=== PATIENT | male | born 1960 | race Caucasian/White ===

== ENCOUNTER → 2016-11-27 | Outpatient (CLI) | payer BC ==
--- NOTE | 2016-11-27 14:22 | RADIOLOGY REPORT (SQ) ---
EXAM DESCRIPTION: CT CHEST WITH; CT ABD/PELVIS WITH IV ORAL COMPLETED DATE/TIME: 11/27/2016 11:25 am REASON FOR STUDY: COLON CA C18.9 MALIGNANT NEOPLASM OF COLON, UNSPECIFIED COMPARISON: None. CONTRAST TYPE AND DOSE: contrast/concentration: Isovue 370.00 mg/ml; Total Contrast Delivered: 91.0 ml; Total Saline Delivered: 67.1 ml RENAL FUNCTION: Creatinine 1.0 TECHNIQUE: CT scan of the chest performed using helical scanning technique with dynamic intravenous contrast injection. Images reviewed with lung, soft tissue and bone windows. Reconstructed coronal a nd sagittal MPR images reviewed. All images stored on PACS. CT scan of the abdomen and pelvis performed with intravenous and with oral contrastusing helical scan alec technique with dynamic intravenous contrast injection. Images reviewed with lung, soft tissue a nd bone windows. Reconstructed coronal and sagittal MPR images reviewed. Delayed images for evaluat ion of the urinary system also acquired and evaluated. All images stored on PACS. All CT scanners at this facility use dose modulation, iterative reconstruction, and/or weight based d osing when appropriate to reduce radiation dose to as low as reasonably achievable (ALARA). [facility]: Dose Right [facility]: CareDose [facility]: Dose Right [facility]: Teradose 4D [facility]: Smart [employer] RADIATION DOSE: Up-to-date CT equipment and radiation dose reduction techniques were employed. CTDIv ol: 4.6 - 9.0 mGy. DLP: 989 mGy-cm. . LIMITATIONS: None. FINDINGS: CHEST: LUNGS AND PLEURA: No opacities, nodules, masses. No pneumothorax. No effusions. HILAR AND MEDIASTINAL STRUCTURES: No identified masses or abnormal nodes. HEART AND VASCULAR STRUCTURES: No aneurysm or dissection. No central pulmonary emboli. No pericardi al effusion. HARDWARE: None. THYROID AND OTHER SOFT TISSUES: No masses. No adenopathy. BONES: No significant finding. OTHER: No other significant finding. ABDOMEN AND PELVIS: LIVER: Normal size. No masses or dilated ducts. SPLEEN: Normal size. No focal lesions. PANCREAS: No masses. No significant calcifications. No adjacent inflammation or peripancreatic fluid collections. Pancreatic duct not dilated. GALLBLADDER: No identified stones by CT criteria. No inflammatory changes to suggest cholecystitis. ADRENAL GLANDS: No significant masses or asymmetry. RIGHT KIDNEY AND URETER: No solid masses. No significant calcification. No hydronephrosis or hydroure ter. LEFT KIDNEY AND URETER: No solid masses. No significant calcification. No hydronephrosis or hydrouret er. AORTA AND VESSELS: No aneurysm. No dissection. Renal arteries, SMA, celiac without stenosis. RETROPERITONEUM: No retroperitoneal adenopathy, hemorrhage or masses. BOWEL AND PERITONEAL CAVITY: Along the distal sigmoid colon, diffuse circumferential wall thickening and luminal narrowing is present highly suspicious for malignancy. This involves a 5 to 6 1 cm long segment of distal sigmoid colon best shown on sagittal image 39 and axial image 76. There is a 1.5 x 1.2 cm presacral lymph node on axial image 64. Remainder of the gastrointestinal tract is otherwise unremarkable. No free intraperitoneal air or fl uid. APPENDIX: Surgically absent ABDOMINAL WALL: No masses. No hernias. BONES: No significant or acute findings. PELVIS: Distal sigmoid colon mass with presacral 1.5 x 1.2 cm lymph node. No free pelvic fluid. Pro state, bladder unremarkable. No inguinal or iliac adenopathy. IMPRESSION: Large distal sigmoid colon mass associated presacral fat lymph node worrisome for colon cancer. No CT evidence of metastatic disease to the chest abdomen or pelvis TECHNICAL DOCUMENTATION: JOB ID: [id number] Quality ID # [id number]: Final reports with documentation of one or more dose reduction techniques (e.g., Au tomated exposure control, adjustment of the mA and/or kV according to patient size, use of iterative reconstruction technique) 2010 [employer]- All Rights Reserved
== END ==
LOC: RAD 09:49
PROVIDERS: ATTEND Surgery
DX: C18.9 Malignant neoplasm of colon, unspecified (principal)
CPT/HCPCS: 71260; 74177; 82565

== ENCOUNTER → 2016-12-04 | Outpatient (CLI) | payer BC ==
--- NOTE | 2016-12-04 10:00 | RADIOLOGY REPORT (SQ) ---
EXAM DESCRIPTION: MRI PELVIS COMBO COMPLETED DATE/TIME: 12/04/2016 REASON FOR STUDY: COLON CA (C18.9) C18.9 MALIGNANT NEOPLASM OF COLON, UNSPECIFIED COMPARISON: CT abdomen pelvis 11/27/2016 TECHNIQUE: Sagittal, axial oblique, and coronal oblique T2-weighted images of the pelvis without con trast centered on the rectum. Axial images of the pelvis. Additional axial coronal and sagittal postcontrast T1 weighted images through the pelvis. Patient was injected with 18 mL of ProHance gadolinium. Estimated GFR greater than 60 FINDINGS: BRIEF DESCRIPTION OF MASS: 5.5 cm long circumferential mass in the distal sigmoid colon/re ctum LOCATION OF TUMOR: Distal sigmoid colon/upper rectum DISTANCE FROM ANORECTAL JUNCTION TO LOWER POLE OF TUMOR: 6 cm. CIRCUMFERENTIAL LOCATION OF TUMOR: Distal sigmoid colon LENGTH OF TUMOR: 5.5 cm greatest craniocaudad length . INVOLVEMENT OF MUSCULARIS PROPIA: Yes. EXTENSION BEYOND MUSCULARIS PROPIA: Yes DISTANCE BETWEEN TUMOR AND MESORECTAL FASCIA: Less than 2 cm PATHOLOGIC LYMPH NODES: Yes. DESCRIPTION: Left internal iliac lymph node in the presacral space, 1.5 x 1.2 cm in size. Left internal iliac lymph nodes in the presacral space, 7 mm and 7.5 mm diameter axial T2 image 10. 4 mm lymph node in the presacral fat the left of midline axial T2 image 17 6 mm l ymph node in the perirectal fat axial T2 image 20. EXTRAMURAL/VASCULAR INVASION: Yes DESCRIPTION: Areas neovascularity along the posterior aspect of th e tumor thyroid INVASION OF PELVIC STRUCTURES: No DESCRIPTION: Not applicable. IMPRESSION: T STAGE: T3b extends 1-5mm beyond muscularis propria N STAGE: N1 1-3 pathologic lymph nodes RECOMMENDATION: Follow-up as per surgeon TECHNICAL DOCUMENTATION: JOB ID: [id number] [employer]- All Rights Reserved
== END ==
LOC: RAD 06:52
PROVIDERS: ATTEND Surgery
DX: C18.9 Malignant neoplasm of colon, unspecified (principal)
CPT/HCPCS: 72197; A9576

== ENCOUNTER → 2016-12-14 | Outpatient (CLI) | payer BC ==
[2016-12-14 09:28] LABS: ABSOLUTE EOSINOPHILS # (AUTO) 0.1 10^3/uL (0.0-0.6); ABSOLUTE LYMPHOCYTES (AUTO) 1.9 10^3/uL (0.5-4.7); ABSOLUTE MONOCYTES (AUTO) 0.6 10^3/uL (0.1-1.4); BASOPHILS % (AUTO) 0.6 % (0-2); EOSINOPHILS % (AUTO) 2.2 % (0-6); HEMATOCRIT 40.9 % (37.9-51.0); HEMOGLOBIN 13.2 g/dL (13.5-17.0); HGB HCT DIFFERENCE -1.3; LYMPHOCYTES % (AUTO) 28.5 % (13-45); MEAN CORPUSCULAR HGB CONC 32.1 g/dL (32.0-36.0); MEAN CORPUSCULAR VOLUME 97 fl (80-97); MONOCYTES % (AUTO) 8.3 % (3-13); RED BLOOD COUNT 4.24 10^6/uL (4.35-5.55); RED CELL DISTRIBUTION WIDTH 17.6 % (11.5-14.0); SEGMENTED NEUTROPHILS % (AUTO) 60.4 % (42-78); WHITE BLOOD COUNT 6.7 10^3/uL (4.0-10.5)
[2016-12-14 09:49] LABS: ALANINE AMINOTRANSFERASE 33 U/L (21-72); ALBUMIN 4.3 g/dL (3.5-5.0); ALKALINE PHOSPHATASE 129 U/L (38-126); ASPARTATE AMINO TRANSFERASE 16 U/L (17-59); BILIRUBIN,DIRECT 0.4 mg/dL (0.0-0.4); BILIRUBIN,TOTAL 0.6 mg/dL (0.2-1.3); TOTAL PROTEIN 7.5 g/dL (6.3-8.2)
[2016-12-14 10:20] LABS: CARCINOEMBRYONIC ANTIGEN 4.1 ng/mL (<3.0)
== END ==
LOC: LAB 09:12
PROVIDERS: ATTEND Radiology Radiation Oncology
DX: C21.8 Malignant neoplasm of overlapping sites of rectum, anus and anal canal (principal); C77.5 Secondary and unspecified malignant neoplasm of intrapelvic lymph nodes
CPT/HCPCS: 36415; 80076; 82378; 85025

== ENCOUNTER → 2016-12-17 | Outpatient (CLI) | payer BC ==
--- NOTE | 2016-12-18 11:27 | RADIOLOGY REPORT (SQ) ---
EXAM DESCRIPTION: PET CT SKULL/THIGH COMPLETED DATE/TIME: 12/17/2016 9:48 pm REASON FOR STUDY: RECTAL CANCER C20 MALIGNANT NEOPLASM OF RECTUM COMPARISON: MRI pelvis 12/04/2016 CT chest abdomen and pelvis 11/27/2016 RADIONUCLIDE AND DOSE: 12.5 mCi F18 FDG The route of agent administration: Intravenous FASTING BLOOD SUGAR: 115 mg/dl CONTRAST TYPE AND DOSE: No CT contrast given. TECHNIQUE: Blood glucose level was verified. Above dose of FDG was injected intravenously. 2-D seg mented attenuation correction images were obtained from the base of the skull to the midthighs. Nonc ontrast CT images were obtained for attenuation correction and fusion with emission images. CT image s were performed without oral or intravenous contrast and are not sensitive for parenchymal lesions. A series of overlapping emission PET images were obtained. Images reviewed and manipulated at [facility] work station by the radiologist. Images stored on PACS. LIMITATIONS: None. FINDINGS: HEAD AND NECK: No areas of abnormal metabolic activity in the soft tissues of the head and neck. CHEST: No areas of abnormal metabolic activity in the chest. ABDOMEN AND PELVIS: The patient has a dominant mass in the distal sigmoid/rectum with circumferential involvement, tumor measures 9.4 SUV. No hypermetabolic abdominopelvic or inguinal lymph nodes are identified. There is a subtle focus of increased metabolic activity in the posterior right lobe liver with SUV 4. 3. This is difficult to visualize on the CT exam and is over the bare area of liver, this may be pre sent on axial CT image 145, measuring about 1 cm in size. PROXIMAL LOWER EXTREMITIES: No areas of abnormal metabolic activity in the soft tissues of the lower extremities. BONES: No abnormal metabolic activity in the visualized skeleton. ADDITIONAL CT FINDINGS: Mild inflammatory change in the bilateral ethmoid and right maxillary sinuses . Coronary artery calcification, minimal. OTHER: Liver background activity 2.7 SUV, blood pool background activity 2.0 SUV IMPRESSION: Primary rectosigmoid hypermetabolic mass Punctate focus of increased activity posterior right lobe liver. This is over the bare area, with a very subtle 1 cm hypodensity on corresponding CT imaging which was not identified on the studies from November. This is worrisome for a metastatic focus, but would be very difficult to biopsy under CT guid meg TECHNICAL DOCUMENTATION: JOB ID: [id number]- All Rights Reserved
== END ==
LOC: RAD 19:31
PROVIDERS: ATTEND Internal Medicine
DX: C20 Malignant neoplasm of rectum (principal)
CPT/HCPCS: 78815; A9552

== ENCOUNTER 2016-12-26 07:25 | Day surgery (SDC) | payer BC ==
[~2016-12-26 07:25] MED LIST: ACETAMINOPHEN 100 ML IV ONE; BACITRACIN INJ 50,000 UNIT VIAL ONE; BUPIVACAINE HCL 0.25 % INJ/PF (2.5 MG/1 ML) 30 ML VIAL ONE; CEFAZOLIN 1 GM/D5W RTU 1 GM/50 ML RTUPB IV PRN; DEXTROSE 5%-NORMAL SALINE 1,000 ML IV PRN; FENTANYL CITRATE INJ/PF 100 MCG/2 ML AMPUL ONE; LIDOCAINE 0.5% INJ-PF (5 MG/ML) 50 ML SDV ONE; LIDOCAINE 2% INJ-PF (20 MG/ML) 10 ML AMPUL ONE; MIDAZOLAM 2 MG/2 ML INJ ONE; ONDANSETRON HCL INJ/PF 4 MG/2 ML SDV ONE; PROPOFOL INJ 200 MG/20 ML VIAL IV ONE
[2016-12-26 07:52] LABS: HEMATOCRIT 38.6 % (37.9-51.0); HEMOGLOBIN 12.9 g/dL (13.5-17.0); HGB HCT DIFFERENCE 0.1; MEAN CORPUSCULAR HEMOGLOBIN 32.3 pg (27.0-33.4); MEAN CORPUSCULAR HGB CONC 33.3 g/dL (32.0-36.0); MEAN CORPUSCULAR VOLUME 97 fl (80-97); RED BLOOD COUNT 3.99 10^6/uL (4.35-5.55); RED CELL DISTRIBUTION WIDTH 17.2 % (11.5-14.0); WHITE BLOOD COUNT 6.4 10^3/uL (4.0-10.5)
[2016-12-26 08:02] LABS: ANION GAP 11 (5-19); BLOOD UREA NITROGEN 15 mg/dL (7-20); CALCIUM 9.4 mg/dL (8.4-10.2); CARBON DIOXIDE 24 mmol/L (22-30); CHLORIDE 107 mmol/L (98-107); CREATININE RESULT 1.01 mg/dL (0.52-1.25); GLUCOSE 101 mg/dL (75-110); SODIUM 141.7 mmol/L (137-145)
[2016-12-26] MEDS ORDERED: DIPHENHYDRAMINE HCL 50 MG/ML VIAL IV PRN (08:21)
[2016-12-26] MEDS ORDERED: PROMETHAZINE HCL INJ 25 MG/1 ML VIAL IV PRN ×2 (08:21)
[2016-12-26] MEDS ORDERED: MEPERIDINE HCL/PF INJ 25 MG/1 ML DISP.SYRIN IV PRN (08:21)
[2016-12-26] MEDS ORDERED: FENTANYL CITRATE INJ/PF 100 MCG/2 ML AMPUL IV PRN ×3 (08:21)
[2016-12-26] MEDS ORDERED: ONDANSETRON HCL INJ/PF 4 MG/2 ML SDV IV PRN (08:21)
--- NOTE | 2016-12-26 08:33 | HISTORY AND PHYSICAL E ---
History and Physical NAME: DAMASO HICKS : 1960 AGE: 56Y ADMITTED: 12/26/2016 ROOM: ADMITTING DIAGNOSIS: COLON CANCER. HISTORY OF THE PRESENTING COMPLAINT: The patient has been treated for colon cancer. He requires chemotherapy and has submitted for insertion of a Port-A-Cath. PAST MEDICAL HISTORY: Of: 1. Colon cancer. ALLERGIES: To CODEINE noted. FAMILY HISTORY: Mother and father in good health until the father's at age 77. SOCIAL HISTORY: The patient is a former smoker. Drinks occasional beer. MEDICATIONS: Per medication reconciliation sheet. PHYSICAL EXAMINATION: GENERAL: The patient is a pleasant, 56-year-old male, alert and oriented in judgment, and memory and insight appear normal. EYES: Mucous membranes are pink and moist, sclerae anicteric. OROPHARYNX: Normal. Dentition intact. RESPIRATION: Respiratory effort normal bilaterally. CARDIAC: Heart sounds are normal. UPPER EXTREMITIES: Show normal range of movement and pulses. PLAN: Is to insert a Port-A-Cath. The procedure, its risks, benefits, expected outcome and alternatives were discussed with the patient. He is agreeable and wishes to proceed. DICTATING PHYSICIAN: VIOLET COY M.D. [id number] PHY#: [id number] ID: [id number] JOB#: [id number] ACCT: [id number] cc:VIOLET COY M.D. > MTDD
--- NOTE | 2016-12-26 09:03 | PDOC DISCHARGE SUMMARY ---
Discharge Summary (SDC) - Discharge Final Diagnosis: Colon cancer. Date of Surgery: 12/26/16 Discharge Date: 12/26/16 Condition: Good Treatment or Instructions: Discharge home [after recovery per ASU criteria]. Diet ,as tolerated, when fully awake advance as tolerated. Activities within moderation encouraged. Follow up in my office by appointment in about [1 week]. Call for appointment. Leave wounds [covered], [keep clean and dry, until office visit in 1 week]. Hold of on school/work [until evaluation in office]. Medications per med rec May shower [in 48 hrs], [try to keep operated area as dry as possible]. Discharge Diet: As Tolerated Respiratory Treatments at Home: Deep Breathing/Coughing Discharge Activity: Activity As Tolerated Report the Following to Your Physician Immediately: Shortness of Breath, Unusual Bleeding
--- NOTE | 2016-12-26 09:07 | Operative Report ---
Operative Report DATE OF SURGERY: 12/26/16 PREOPERATIVE DIAGNOSIS: Colon cancer. POSTOPERATIVE DIAGNOSIS: Colon cancer. Post Port-A-Cath placement. OPERATION: 1. Ultrasound evaluation of the right internal jugular vein. 2. Placement of Port-A-Cath via real-time access in the right internal jugular vein. 3. Angiogram and interpretation. SURGEON: VIOLET COHN MEDICAL RECEPTIONIST ASSISTANT: Luann Renee ANESTHESIA: LMAC TISSUE REMOVED OR ALTERED: Not applicable. COMPLICATIONS: None ESTIMATED BLOOD LOSS: 2 mL. INTRAOPERATIVE FINDINGS: Of several branches of the internal jugular vein above the carotid artery. One was accessed successfully in support of the Port-A- Cath. Easy egress of blood and ingress of heparinized solution through the port. Angiogram demonstrated smooth flow of contrast through the catheter and the right atrium. PROCEDURE: After obtaining informed consent, the patient was taken to the [operating room] and positioned supine. The [right] neck and chest were prepared with chlorhexidine and draped out with sterile linen. After the " universal timeout ", in which it was verified that the patient continued to receive antibiotic, the procedure commenced. A steriley sheathed ultrasound probe was used to evaluate the [right] internal jugular vein. Local anesthesia was infiltrated adjacent to the probe. Access into the [right] internal jugular vein was obtained using a micropuncture needle, followed by micropuncture wire and then a micropuncture catheter. This was followed by introduction of a 0.035 guidewire the tip of which was placed down into the inferior vena cava . The port sites was marked , locally anesthetized and incision made. Dissection now proceeded to the deep subcutaneous subcutaneous tissues so that a pocket for the port was made. Meticulous hemostasis was secured and the catheter was tunneled between the 2 incisions. Proximally, the catheter was now positioned using a peel-away sheath. Distally the catheter was tailored to an appropriate length and then mated to the port using the contained fixating device. The port was now placed in the pocket and the catheter optimally positioned. The port was accessed with a Eugene needle and an angiogram done under digital subtraction. The findings as dictated. With adequate and satisfactory positioning, both lumens of the chamber were irrigated with heparinized solution. The wounds were now closed using interrupted 3-0 PDS to the subcutaneous tissues and a continuous subcuticular suture of 4-0 Monocryl to the skin. These are reinforced with Steri-Strips over benzoin and then dressings applied. Time: 0.8 minute. Dose: 5.73 m Gy Contrast: 8 mls. Isovue 300. Copies of the dictated operative report for Dr. Violet Dailey MD.
[2016-12-26 10:42] VITALS: BP 144/77
--- NOTE | 2016-12-26 12:35 | RADIOLOGY REPORT (SQ) ---
EXAM DESCRIPTION: FLUORO/CV PLACEMENT COMPLETED DATE/TIME: 12/26/2016 10:33 am REASON FOR STUDY: PORTACATH RT SIDE ASSISTED WITH FLUORO IN OR C20 MALIGNANT NEOPLASM OF RECTUM COMPARISON: None. FLUOROSCOPY TIME: 0.8 minutes. 4 images saved to PACS. TECHNIQUE: Intra-operative images acquired during surgical procedure to evaluate progress. NUMBER OF IMAGES: 4 images. LIMITATIONS: None. FINDINGS: Images of the chest acquired during catheter placement. IMPRESSION: IMAGE(S) OBTAINED DURING PROCEDURE. COMMENT: Quality ID [id number]: Final reports for procedures using fluoroscopy that document radiation exp osure indices, or exposure time and number of fluorographic images (if radiation exposure indices are not available) Please consult full operative report of the attending physician for description of the procedure. TECHNICAL DOCUMENTATION: JOB ID: [id number] [employer]- All Rights Reserved
== END 2016-12-26 10:40 | disposition home or self-care (01) ==
LOC: OROUT 07:25
PROVIDERS: ATTEND Surgery
PROC: 05HM33Z Insertion of Infusion Device into Right Internal Jugular Vein, Percutaneous Approach (ICD-10-PCS; principal; 2016-12-26 07:45)
DX: C20 Malignant neoplasm of rectum (principal); Z87.891 Personal history of nicotine dependence; Z88.5 Allergy status to narcotic agent
CPT/HCPCS: 36561; 36415; 85027; 80048; 77001; C1752; C1788; Q9967; J2250; J3490 ×3; J0690; J3010; J2405; J2704; J1642; J0131; 532

== ENCOUNTER → 2017-01-03 | Outpatient (CLI) | payer BC ==
[2017-01-03 09:23] LABS: BLOOD UREA NITROGEN 15 mg/dL (7-20); CREATININE RESULT 0.88 mg/dL (0.52-1.25)
== END ==
LOC: LAB 08:49
PROVIDERS: ATTEND Radiology Radiation Oncology
DX: C21.8 Malignant neoplasm of overlapping sites of rectum, anus and anal canal (principal); C77.5 Secondary and unspecified malignant neoplasm of intrapelvic lymph nodes
CPT/HCPCS: 36415; 82565; 84520

== ENCOUNTER → 2017-03-08 | Outpatient (CLI) | payer BC ==
--- NOTE | 2017-03-08 16:29 | RADIOLOGY REPORT (SQ) ---
EXAM DESCRIPTION: CT CHEST WITH; CT ABD/PELVIS WITH IV ORAL COMPLETED DATE/TIME: 03/08/2017 1:32 pm REASON FOR STUDY: RECTAL CA C20 MALIGNANT NEOPLASM OF RECTUM COMPARISON: None. CONTRAST TYPE AND DOSE: contrast/concentration: Isovue 370.00 mg/ml; Total Contrast Delivered: 94.0 ml; Total Saline Delivered: 38.2 ml RENAL FUNCTION: Creatinine 1.0 TECHNIQUE: CT scan of the chest performed using helical scanning technique with dynamic intravenous contrast injection. Images reviewed with lung, soft tissue and bone windows. Reconstructed coronal a nd sagittal MPR images reviewed. All images stored on PACS. CT scan of the abdomen and pelvis performed with intravenous and with oral contrastusing helical scan alec technique with dynamic intravenous contrast injection. Images reviewed with lung, soft tissue a nd bone windows. Reconstructed coronal and sagittal MPR images reviewed. Delayed images for evaluat ion of the urinary system also acquired and evaluated. All images stored on PACS. All CT scanners at this facility use dose modulation, iterative reconstruction, and/or weight based d osing when appropriate to reduce radiation dose to as low as reasonably achievable (ALARA). [facility]: Dose Right [facility]: CareDose [facility]: Dose Right [facility]: Teradose 4D [facility]: [employer] RADIATION DOSE: Up-to-date CT equipment and radiation dose reduction techniques were employed. CTDIv ol: 6.3 - 8.2 mGy. DLP: 949 mGy-cm. . LIMITATIONS: None. FINDINGS: CHEST: LUNGS AND PLEURA: No opacities, nodules, masses. No pneumothorax. No effusions. HILAR AND MEDIASTINAL STRUCTURES: No identified masses or abnormal nodes. HEART AND VASCULAR STRUCTURES: No aneurysm or dissection. No central pulmonary emboli. No pericardi al effusion. HARDWARE: Right permanent central line tip superior vena cava THYROID AND OTHER SOFT TISSUES: No masses. No adenopathy. BONES: No significant finding. OTHER: No other significant finding. ABDOMEN AND PELVIS: LIVER: Normal size. No masses. No dilated ducts. Tiny lesion posterior right lobe liver identified on PET-CT 12/17/2016 is no longer seen. SPLEEN: Normal size. No focal lesions. PANCREAS: No masses. No significant calcifications. No adjacent inflammation or peripancreatic fluid collections. Pancreatic duct not dilated. GALLBLADDER: No identified stones by CT criteria. No inflammatory changes to suggest cholecystitis. ADRENAL GLANDS: No significant masses or asymmetry. RIGHT KIDNEY AND URETER: No solid masses. No significant calcification. No hydronephrosis or hydroure ter. LEFT KIDNEY AND URETER: No solid masses. No significant calcification. No hydronephrosis or hydrouret er. AORTA AND VESSELS: No aneurysm. No dissection. Renal arteries, SMA, celiac without stenosis. RETROPERITONEUM: An enlarged left internal iliac lymph node is present on axial image 117, 1.3 x 0.9 cm in size (was 1.5 x 1.[address] 11/27/2016). BOWEL AND PERITONEAL CAVITY: There is residual circumferential wall thickening in the distal sigmoid/ upper rectum on axial images 122-127 and sagittal images 74 through 76. This is decreased compared to prior exams. Patient drank oral contrast. No bowel obstruction. No free intraperitoneal air. No free fluid. APPENDIX: Not identified. No right lower quadrant inflammatory change ABDOMINAL WALL: No masses. No hernias. BONES: No significant or acute findings. PELVIS: Rectal mass and left internal iliac lymph node as above. Otherwise unremarkable CT the pelvi s IMPRESSION: No CT evidence of metastatic disease to the chest Decrease in size of left internal iliac lymph node and primary distal sigmoid/ rectal mass. Tiny posterior right lobe liver metastatic lesions seen on PET-CT 12/17/2016 is not identified on ean coker's study TECHNICAL DOCUMENTATION: JOB ID: [id number] Quality ID # [id number]: Final reports with documentation of one or more dose reduction techniques (e.g., Au tomated exposure control, adjustment of the mA and/or kV according to patient size, use of iterative reconstruction technique) 2010 [employer]- All Rights Reserved
== END ==
LOC: RAD 12:52
PROVIDERS: ATTEND Internal Medicine
DX: C20 Malignant neoplasm of rectum (principal)
CPT/HCPCS: 71260; 74177

== ENCOUNTER 2017-04-03 09:17 | Inpatient (IN) | payer BC ==
[2017-03-27 10:33] LABS: HEMOGLOBIN 11.3 g/dL (13.5-17.0); HGB HCT DIFFERENCE -0.1; MEAN CORPUSCULAR HEMOGLOBIN 33.4 pg (27.0-33.4); MEAN CORPUSCULAR HGB CONC 33.3 g/dL (32.0-36.0); MEAN CORPUSCULAR VOLUME 100 fl (80-97); RED BLOOD COUNT 3.39 10^6/uL (4.35-5.55); RED CELL DISTRIBUTION WIDTH 18.9 % (11.5-14.0); WHITE BLOOD COUNT 4.7 10^3/uL (4.0-10.5)
[2017-03-27 10:53] LABS: ALANINE AMINOTRANSFERASE 31 U/L (21-72); ALBUMIN 3.6 g/dL (3.5-5.0); ALKALINE PHOSPHATASE 101 U/L (38-126); ANION GAP 10 (5-19); ASPARTATE AMINO TRANSFERASE 14 U/L (17-59); BILIRUBIN,DIRECT 0.3 mg/dL (0.0-0.4); BILIRUBIN,TOTAL 0.3 mg/dL (0.2-1.3); BLOOD UREA NITROGEN 15 mg/dL (7-20); CALCIUM 9.2 mg/dL (8.4-10.2); CARBON DIOXIDE 25 mmol/L (22-30); CHLORIDE 109 mmol/L (98-107); CREATININE RESULT 0.97 mg/dL (0.52-1.25); GLUCOSE 107 mg/dL (75-110); POTASSIUM 4.3 mmol/L (3.6-5.0); SODIUM 143.8 mmol/L (137-145); TOTAL PROTEIN 6.4 g/dL (6.3-8.2)
[2017-03-27 11:24] LABS: CARCINOEMBRYONIC ANTIGEN 2.7 ng/mL (<3.0)
--- NOTE | 2017-03-27 16:30 | EKG REPORT ---
SEVERITY:- NORMAL ECG - SINUS RHYTHM : Confirmed by: Navjot Fisher 27-Mar-2017 16:29:46
[~2017-04-03 09:17] MED LIST changes: -ACETAMINOPHEN 100 ML IV ONE; +ACETAMINOPHEN 325 MG TABLET PO PRN; -BACITRACIN INJ 50,000 UNIT VIAL ONE; -BUPIVACAINE HCL 0.25 % INJ/PF (2.5 MG/1 ML) 30 ML VIAL ONE; -CEFAZOLIN 1 GM/D5W RTU 1 GM/50 ML RTUPB IV PRN; -DEXTROSE 5%-NORMAL SALINE 1,000 ML IV PRN; +ERTAPENEM SODIUM 1 GM in NORMAL SALINE 50 ML IV PRN; -FENTANYL CITRATE INJ/PF 100 MCG/2 ML AMPUL ONE; +GLYCOPYRROLATE INJ 0.4 MG/2 ML VIAL ONE; +LACTATED RINGERS 1000 ML IV PRN; -LIDOCAINE 0.5% INJ-PF (5 MG/ML) 50 ML SDV ONE; +LIDOCAINE 0.5% INJ-PF (5 MG/ML) 50 ML SDV SUBCUT PRN; -LIDOCAINE 2% INJ-PF (20 MG/ML) 10 ML AMPUL ONE; -MIDAZOLAM 2 MG/2 ML INJ ONE; +NEOSTIGMINE METHYLSULFATE 10 MG/10 ML VIAL ONE; -PROPOFOL INJ 200 MG/20 ML VIAL IV ONE; +ROCURONIUM BROMIDE INJ 50 MG/5 ML VIAL IV ONE; +SUCCINYLCHOLINE CHLORIDE INJ 200 MG/10 ML VIAL ONE
[2017-04-03] MEDS ORDERED: GLUCAGON,HUMAN RECOMB 1 MG INJ ONE (11:03)
[2017-04-03] MEDS ORDERED: BUPIVACAINE HCL 0.25 % INJ/PF (2.5 MG/1 ML) 30 ML VIAL ONE (11:03)
[2017-04-03] MEDS ORDERED: FENTANYL CITRATE INJ/PF 250 MCG/5 ML AMPULE ONE (12:11)
[2017-04-03] MEDS ORDERED: EPHEDRINE SULFATE INJ 50 MG/1 ML AMPULE ONE (12:11)
[2017-04-03] MEDS ORDERED: MIDAZOLAM 2 MG/2 ML INJ ONE (12:11)
[2017-04-03] MEDS ORDERED: PROPOFOL INJ 200 MG/20 ML VIAL IV ONE (12:11)
[2017-04-03] MEDS ORDERED: HYDROMORPHONE HCL INJ/PF 2 MG/ML AMPULE ONE (12:12)
[2017-04-03] MEDS ORDERED: ACETAMINOPHEN 100 ML IV ONE (12:12)
[2017-04-03] MEDS ORDERED: MORPHINE SULFATE 10 MG/ML INJ IV PRN (15:28)
[2017-04-03] MEDS ORDERED: DIPHENHYDRAMINE HCL 50 MG/ML VIAL IV PRN (15:28)
[2017-04-03] MEDS ORDERED: FENTANYL CITRATE INJ/PF 100 MCG/2 ML AMPUL IV PRN ×3 (15:28)
[2017-04-03] MEDS ORDERED: PROMETHAZINE HCL INJ 25 MG/1 ML VIAL IV PRN ×2 (15:28)
[2017-04-03] MEDS ORDERED: MEPERIDINE HCL/PF INJ 25 MG/1 ML DISP.SYRIN IV PRN (15:28)
[2017-04-03] MEDS ORDERED: GLUCAGON,HUMAN RECOMB 1 MG INJ SUBCUT PRN (16:31)
[2017-04-03] MEDS ORDERED: DEXTROSE 50%-WATER 25 GM/50 ML DISP.SYRIN IV PRN ×2 (16:31)
[2017-04-03] MEDS ORDERED: DEXTROSE 40% GEL 15 GM TUBE PO PRN ×2 (16:31)
--- NOTE | 2017-04-03 16:31 | Operative Report ---
Operative Report DATE OF SURGERY: 04/03/17 PREOPERATIVE DIAGNOSIS: Rectal cancer POSTOPERATIVE DIAGNOSIS: Rectal cancer OPERATION: Low anterior resection with mobilization of the splenic flexure SURGEON: JOY BLANCO ANESTHESIA: GA TISSUE REMOVED OR ALTERED: Rectosigmoid COMPLICATIONS: None ESTIMATED BLOOD LOSS: 200 cc INTRAOPERATIVE FINDINGS: Upper rectal mass below the level of the peritoneal reflection. palpable lesion at the posterior surface of segment 7 of the liver measuring about 2-3 cm in size unable to visualize the lesion however. PROCEDURE: Informed consent was obtained. Patient was brought to the operating room placed on the operating table in the supine position. After satisfactory induction of general anesthesia patient was placed in a low lithotomy position and his abdomen and perineum were prepped and draped in usual sterile fashion. A midline abdominal incision was made dissection was carried down and the peritoneal cavity was entered without difficulty. A wound protractor was used during the case as well as a Bookwalter retractor. Exploratory laparotomy was performed first. The anterior surface of the abdominal wall felt smooth with no nodules. The omentum appeared normal. The small bowel appeared normal. The right colon and transverse colon descending colon appeared normal. At the upper rectum just below the level of the peritoneal reflection there was a palpable mass. The mesentery appeared somewhat thickened in this region. The stomach felt normal. The gallbladder appeared normal. Liver was palpated there were no palpable masses anteriorly however at the posterior surface of segment 7 of the liver there was a palpable mass measuring about 2-3 cm in size. I could not visualize this lesion however. The sigmoid colon was mobilized the AINSLEY was identified clamped divided and tied. On the left side I went intentionally wide along the peritoneal reflection overlying this region of the left internal iliac. The ureters on both sides were identified and protected during the dissection. The retroperitoneal structures were skeletonized on the left staying in an avascular plane as the dissection proceeded posteriorly in the pelvis. The sigmoid colon was divided at its junction of the descending colon using a ASHLEY stapling device. Dissection was then performed laterally and finally anteriorly performing a near total meso rectal excision. The rectum was divided at the lower rectal level using a contour stapling device. The specimen was taken to pathology and it was opened revealing a 6-7 cm margin distally. The pelvis was examined and palpated I could not feel any palpable nodes especially along the left internal iliac region. node in the mesentery of the rectosigmoid that overlaid the left internal iliac region may have come out with the specimen. The left colon was mobilized and the splenic flexure was completely mobilized. Despite complete mobilization of the splenic flexure the descending colon end did not reach down to the rectal stump without tension. The inferior mesenteric vein was taken and this allowed the descending colon end to reach down to the rectal stump without any tension. The marginal vessel supplied by the middle colic artery had excellent pulsations. Triphasic Doppler signals were heard in the mesentery adjacent of the descending colon end. The descending colon end appeared pink with no evidence of ischemia. Using a pursestring device, head of size EEA stapling device was then attached to the descending colon end. The cut edge of the descending colon end had oozing of blood. A end-to-end anastomosis was then performed between the descending colon and the rectum. Both of the donuts were intact. Proctoscopy was performed which demonstrated the anastomosis to be 5 cm from the anal verge. Anastomosis appeared intact and it was airtight. A Marcus-Daley drain was placed in the patient's pelvis and brought out through separate stab incision in the patient's left lower abdomen and sutured in place. Hemostasis appeared excellent. Sponge needle and instrument counts were all correct. Omentum was draped over the small bowel and the fascia was closed with running PDS suture. Staple closure of the skin was performed. Marcaine was injected at the operative incision. Patient tolerated procedure well with no apparent complications and was taken to the recovery area in stable condition.
[2017-04-03] MEDS: FENTANYL CITRATE INJ/PF 100 MCG/2 ML AMPUL ONE ×2 (16:38→16:43)
[2017-04-03] MEDS ORDERED: PHARMACY COMMUNICATION ORDER MC NR (16:45)
[2017-04-03] MEDS: MORPHINE SULFATE 10 MG/ML INJ IV PRN ×2 (18:12→22:34)
--- NOTE | 2017-04-03 19:07 | PDOC PROGRESS REPORT ---
Subjective Progress Note for:: 04/03/17 Subjective:: Pain at the incision otherwise feels okay Physical Exam Vital Signs: Temp Pulse Resp BP Pulse Ox 95.1 F L 78 18 127/78 H 99 04/03/17 18:42 04/03/17 18:42 04/03/17 18:42 04/03/17 18:42 04/03/17 18:42 Intake & Output 04/02/17 04/03/17 04/04/17 06:59 06:59 06:59 Intake Total 6260 Output Total 1820 Balance 4440 Weight 77.56 kg General appearance: PRESENT: no acute distress, cooperative Respiratory exam: PRESENT: clear to auscultation andria Cardiovascular exam: PRESENT: RRR GI/Abdominal exam: PRESENT: other - Soft, nondistended, appropriate tenderness. Marcus-Daley drain output is blood-tinged. Extremities exam: PRESENT: other - No swelling Skin exam: PRESENT: warm Results Laboratory Results: 03/27/17 08:57 03/27/17 08:57 04/03/17 11:35 Blood Type O NEGATIVE Antibody Screen NEGATIVE Assessment & Plan - Diagnosis (1) Rectal cancer Is this a current diagnosis for this admission?: Yes Plan: Status post low anterior resection. Patient looks good. Will give a dose of Toradol for additional pain control tonight. Will ambulate the patient tomorrow.
[2017-04-03] MEDS ORDERED: KETOROLAC TROMETHAMINE INJ/PF 30 MG/1 ML SDV IV ONE (20:00)
[2017-04-03] MEDS: FAMOTIDINE INJ/PF 20 MG/2 ML SDV IV SCH (21:24)
[2017-04-04] MEDS: MORPHINE SULFATE 10 MG/ML INJ IV PRN ×5 (03:56→21:47)
[2017-04-04 07:01] LABS: HEMATOCRIT 30.7 % (37.9-51.0); HEMOGLOBIN 10.3 g/dL (13.5-17.0); HGB HCT DIFFERENCE 0.2; MEAN CORPUSCULAR HEMOGLOBIN 34.1 pg (27.0-33.4); MEAN CORPUSCULAR HGB CONC 33.7 g/dL (32.0-36.0); MEAN CORPUSCULAR VOLUME 101 fl (80-97); RED BLOOD COUNT 3.03 10^6/uL (4.35-5.55); RED CELL DISTRIBUTION WIDTH 19.2 % (11.5-14.0); WHITE BLOOD COUNT 5.2 10^3/uL (4.0-10.5)
[2017-04-04 07:19] LABS: ANION GAP 7 (5-19); BLOOD UREA NITROGEN 12 mg/dL (7-20); CALCIUM 8.6 mg/dL (8.4-10.2); CARBON DIOXIDE 23 mmol/L (22-30); CHLORIDE 114 mmol/L (98-107); CREATININE RESULT 0.77 mg/dL (0.52-1.25); GLUCOSE 92 mg/dL (75-110); POTASSIUM 4.7 mmol/L (3.6-5.0); SODIUM 143.5 mmol/L (137-145)
[2017-04-04] MEDS: ENOXAPARIN SODIUM INJ 40 MG/0.4 ML DISP.SYRIN SUBCUT SCH (09:11)
[2017-04-04] MEDS: FAMOTIDINE INJ/PF 20 MG/2 ML SDV IV SCH ×2 (09:12→21:32)
[2017-04-04] MEDS: NORMAL SALINE 1000 ML 1,000 ML IV PRN ×2 (13:23→23:46)
--- NOTE | 2017-04-04 16:00 | PDOC PROGRESS REPORT ---
Subjective Progress Note for:: 04/04/17 Subjective:: feels well, no complaints Physical Exam Vital Signs: Temp Pulse Resp BP Pulse Ox 97.6 F 77 17 123/80 100 04/04/17 11:38 04/04/17 11:38 04/04/17 11:38 04/04/17 11:38 04/04/17 11:38 Intake & Output 04/03/17 04/04/17 04/05/17 06:59 06:59 06:59 Intake Total 7460 Output Total 2370 Balance 5090 Weight 81.6 kg General appearance: PRESENT: no acute distress, cooperative Respiratory exam: PRESENT: clear to auscultation andria Cardiovascular exam: PRESENT: RRR GI/Abdominal exam: PRESENT: other - soft, nd, mild tenderness Musculoskeletal exam: PRESENT: other - no swelling Results Laboratory Results: 04/04/17 06:28 04/04/17 06:28 04/04/17 04/04/17 06:28 06:28 WBC 5.2 RBC 3.03 L Hgb 10.3 L Hct 30.7 L MCV 101 H MCH 34.1 H MCHC 33.7 RDW 19.2 H Plt Count 185 Sodium 143.5 Potassium 4.7 Chloride 114 H Carbon Dioxide 23 Anion Gap 7 BUN 12 Creatinine 0.77 Est GFR ( Amer) > 60 Est GFR (Non-Af Amer) > 60 Glucose 92 Calcium 8.6 Assessment & Plan - Diagnosis (1) Rectal cancer Is this a current diagnosis for this admission?: Yes Plan: Status post low anterior resection. Patient looks good. NG d/c 'ed due to minimal output. pt ambulating. d/c barrios tomorrow.
[2017-04-05] MEDS: MORPHINE SULFATE 10 MG/ML INJ IV PRN ×4 (03:12→21:52)
--- NOTE | 2017-04-05 09:31 | PDOC PROGRESS REPORT ---
Subjective Progress Note for:: 04/05/17 Subjective:: Feels well. Passing gas. Hungry. Physical Exam Vital Signs: Temp Pulse Resp BP Pulse Ox 97.4 F 78 18 150/85 H 100 04/05/17 07:47 04/05/17 07:47 04/05/17 07:47 04/05/17 07:47 04/05/17 07:47 Intake & Output 04/04/17 04/05/17 04/06/17 06:59 06:59 06:59 Intake Total 7460 2432 Output Total 2370 1858 Balance 5090 574 Weight 81.6 kg 82.9 kg General appearance: PRESENT: no acute distress, cooperative Respiratory exam: PRESENT: clear to auscultation andria Cardiovascular exam: PRESENT: RRR GI/Abdominal exam: PRESENT: other - Soft, nondistended, minimal tenderness. Wound clean dry and intact. Drain output is serosanguineous. Extremities exam: PRESENT: other - No swelling. Results Laboratory Results: 04/04/17 06:28 04/04/17 06:28 Assessment & Plan - Diagnosis (1) Rectal cancer Is this a current diagnosis for this admission?: Yes Plan: Doing very well. Will start clear liquids. DC Longo catheter.
[2017-04-05] MEDS ORDERED: NORMAL SALINE 1000 ML 1,000 ML IV PRN (09:32)
[2017-04-05] MEDS: ENOXAPARIN SODIUM INJ 40 MG/0.4 ML DISP.SYRIN SUBCUT SCH (09:36)
[2017-04-05] MEDS: FAMOTIDINE INJ/PF 20 MG/2 ML SDV IV SCH ×2 (09:36→21:52)
[2017-04-06] MEDS: MORPHINE SULFATE 10 MG/ML INJ IV PRN ×3 (04:51→21:10)
--- NOTE | 2017-04-06 07:49 | PDOC PROGRESS REPORT ---
Subjective Progress Note for:: 04/06/17 Subjective:: Feels well. tolerating clears. no bm. stopped passing gas but no distension and no nausea Physical Exam Vital Signs: Temp Pulse Resp BP Pulse Ox 97.4 F 81 17 139/84 H 99 04/06/17 00:03 04/06/17 00:03 04/06/17 00:03 04/06/17 00:03 04/06/17 00:03 Intake & Output 04/05/17 04/06/17 04/07/17 06:59 06:59 06:59 Intake Total 2432 2435 Output Total 1858 610 Balance 574 1825 Weight 82.9 kg 82.9 kg General appearance: PRESENT: no acute distress, cooperative Respiratory exam: PRESENT: clear to auscultation andria Cardiovascular exam: PRESENT: RRR GI/Abdominal exam: PRESENT: other - soft, nondistended, tender at midline only. active bowel sounds. drain slight blood tinged. Extremities exam: PRESENT: other - no swelling Neurological exam: PRESENT: alert, awake Psychiatric exam: PRESENT: appropriate affect Skin exam: PRESENT: warm Results Laboratory Results: 04/04/17 06:28 04/04/17 06:28 Assessment & Plan - Diagnosis (1) Rectal cancer Is this a current diagnosis for this admission?: Yes Plan: Doing very well. will await better bowel function prior to advancing diet.
[2017-04-06] MEDS: ENOXAPARIN SODIUM INJ 40 MG/0.4 ML DISP.SYRIN SUBCUT SCH (09:37)
[2017-04-06] MEDS: FAMOTIDINE INJ/PF 20 MG/2 ML SDV IV SCH ×2 (09:37→21:10)
[2017-04-07] MEDS: MORPHINE SULFATE 10 MG/ML INJ IV PRN ×3 (02:07→23:53)
[2017-04-07] MEDS ORDERED: LOSARTAN POTASSIUM 50 MG TABLET PO ONE (04:00)
[2017-04-07] MEDS ORDERED: HYDRALAZINE HCL INJ/PF 20 MG/1 ML SDV IV ONE (04:00)
[2017-04-07] MEDS ORDERED: MORPHINE SULFATE 10 MG/ML INJ IV ONE (04:02)
[2017-04-07] MEDS ORDERED: LORAZEPAM INJ 2 MG/1 ML VIAL IV ONE (04:03)
[2017-04-07] MEDS ORDERED: LORAZEPAM INJ 2 MG/1 ML VIAL IV PRN (04:58)
--- NOTE | 2017-04-07 05:12 | PDOC CONSULTATION ---
Consultation Consult Date: 04/07/17 Attending physician:: JOY BLANCO Consult reason:: Htn History of Present Illness Admission Date/PCP: 04/03/17 10:39 BELLA History of Present Illness: DAMASO HICKS is a 57 year old male with a PMH significant for recent diagnosis of metastatic adenocarcinoma of the colon who presented for a resection of his colonic mass. Patient reports that he has no prior history of hypertension. He does report that he is having some left upper quadrant what he feels is gas pain. He reports significant nausea and stomach cramps. He reports he has been having difficulty tolerating even a mild clear liquid diet. He has been ambulating. He is passing very little flatus. Nursing reports that his ASLUD drain has put out over 300 this evening. Patient denies any chest pain, shortness of breath, headache, numbness, tingling, or other TIA or CVA type symptoms. Hospital service is consulted for management of hypertension. Past Medical History Cardiac Medical History: Denies: Coronary Artery Disease, Myocardial Infarction, Hypertension Pulmonary Medical History: Denies: Asthma, Bronchitis, Chronic Obstructive Pulmonary Disease (COPD), Pneumonia Neurological Medical History: Denies: Seizures Malignancy Medical History: Reports: Colorectal Cancer GI Medical History: Denies: Crohn's Disease, Gastroesophageal Reflux Disease, Hiatal Hernia Musculoskeltal Medical History: Denies: Arthritis Hematology: Denies: Anemia Past Surgical History Past Surgical History: Reports: Appendectomy - 1970, Vascular Surgery - Port placement Denies: Cholecystectomy, Colostomy, Coronary Artery Bypass Graft, Gastric Bypass Surgery, Herniorrhaphy, Pacemaker, Tonsillectomy Social History Smoking Status: Former Smoker Frequency of Alcohol Use: Heavy Amount of Alcoholic Beverages Per Day: She reports drinking 3-4 beers several times a week Hx Recreational Drug Use: No Hx Prescription Drug Abuse: No - Advance Directive Resuscitation Status: Full Code Surrogate healthcare decision maker:: , Nisa Hicks Family History Family History: CAD Parental Family History Reviewed: Yes Children Family History Reviewed: Yes Sibling(s) Family History Reviewed.: Yes Medication/Allergy Home Medications: Ibuprofen 200 mg PO PRN PRN 12/25/16 Multivit-Min36/Iron/Folic Acid [Geritol Complete Tablet] 1 each PO DAILY Sennosides/Docusate Sodium [Stool Softener Tablet] 1 each PO BID 03/27/17 Allergies/Adverse Reactions: codeine Adverse Reaction (Verified 03/27/17 08:46) Generalized rash Review of Systems Constitutional: ABSENT: chills, fever(s), headache(s), weight gain, weight loss Eyes: ABSENT: visual disturbances Ears: ABSENT: hearing changes Cardiovascular: ABSENT: chest pain, dyspnea on exertion, edema, orthropnea, palpitations Respiratory: ABSENT: cough, hemoptysis Gastrointestinal: PRESENT: as per HPI, abdominal pain, bloating, constipation, nausea. ABSENT: diarrhea, hematemesis, hematochezia, melena, vomiting Genitourinary: ABSENT: dysuria, hematuria Musculoskeletal: ABSENT: joint swelling Integumentary: ABSENT: rash, wounds Neurological: ABSENT: abnormal gait, abnormal speech, confusion, dizziness, focal weakness, syncope Psychiatric: ABSENT: anxiety, depression, homidical ideation, suicidal ideation Endocrine: ABSENT: cold intolerance, heat intolerance, polydipsia, polyuria Hematologic/Lymphatic: ABSENT: easy bleeding, easy bruising Physical Exam Vital Signs: Temp Pulse Resp BP Pulse Ox 97.9 F 81 18 148/88 H 99 04/06/17 22:34 04/06/17 22:34 04/06/17 22:34 04/07/17 00:00 04/06/17 22:34 Intake & Output 04/05/17 04/06/17 04/07/17 06:59 06:59 06:59 Intake Total 2432 2435 4054 Output Total 7312 280 4761 Balance 574 1825 2894 Weight 82.9 kg 82.9 kg General appearance: PRESENT: mild distress, thin, well-developed, well-nourished Head exam: PRESENT: atraumatic, normocephalic Eye exam: PRESENT: conjunctiva pink, EOMI, PERRLA. ABSENT: scleral icterus Ear exam: PRESENT: normal external ear exam Mouth exam: PRESENT: moist, tongue midline Neck exam: ABSENT: JVD, lymphadenopathy, thyromegaly, tracheal deviation Respiratory exam: PRESENT: clear to auscultation andria. ABSENT: rales, rhonchi, wheezes Cardiovascular exam: PRESENT: RRR, +S1, +S2. ABSENT: diastolic murmur, rubs, systolic murmur, tachycardia Pulses: PRESENT: normal dorsalis pedis pul Vascular exam: PRESENT: normal capillary refill GI/Abdominal exam: PRESENT: distended, soft, tenderness - Diffusely tender, other - SALUD drain draining serosanguineous Midline incision well approximated with waffle dressing. ABSENT: firm, guarding, mass, Castañeda's sign, normal bowel sounds - Absent bowel sounds, organolmegaly, rebound, rigid Rectal exam: PRESENT: deferred Extremities exam: PRESENT: full ROM. ABSENT: calf tenderness, clubbing, pedal edema Neurological exam: PRESENT: alert, awake, oriented to person, oriented to place , oriented to time, oriented to situation, CN II-XII grossly intact. ABSENT: motor sensory deficit Psychiatric exam: PRESENT: appropriate affect, normal mood. ABSENT: homicidal ideation, suicidal ideation Skin exam: PRESENT: dry, intact, warm. ABSENT: cyanosis, rash Results Laboratory Results: 04/04/17 06:28 04/04/17 06:28 Assessment & Plan - Diagnosis (1) Hypertension Qualifiers: Hypertension type: unspecified Qualified Code(s): I10 - Essential (primary ) hypertension Is this a current diagnosis for this admission?: Yes Plan: At this time, will have patient empty bladder, uncross legs, and give him a one- time dose of IV morphine. We will also give him a dose of IV Ativan as patient does complain of significant nausea and has some mild alcohol usage. If his blood pressure remains elevated over 150/90 according to the new JNC 8 guidelines, we will treat this patient with Cozaar. And at this time, I will stop his IV fluids and encourage the p.o. intake of fluid. Will check a BMP and a KUB in the morning. As I do have some concerns that his pain may be related to a developing ileus. (2) Colon cancer Qualifiers: Colon location: unspecified part of colon Qualified Code(s): C18.9 - Malignant neoplasm of colon, unspecified Is this a current diagnosis for this admission?: Yes Plan: At this time, I defer pain management and evaluation and treatment of any intra- abdominal process to the primary surgical team in regard to his recent surgery. (3) Alcohol use Is this a current diagnosis for this admission?: Yes Plan: At this time, there is a possibility patient may imbibe more alcohol than he ascribes to. However I do not feel that he is actively going through delirium tremens. - Time Time Spent: 30 to 50 Minutes Medications reviewed and adjusted accordingly: Yes
--- NOTE | 2017-04-07 08:37 | RADIOLOGY REPORT (SQ) ---
EXAM DESCRIPTION: KUB/ABDOMEN (SINGLE VIEW) COMPLETED DATE/TIME: 04/07/2017 7:55 am REASON FOR STUDY: ?ileus C18.9 MALIGNANT NEOPLASM OF COLON, UNSPECIFIED COMPARISON: PET-CT 12/17/2016 CT abdomen pelvis 11/27/2016, 03/08/2017 NUMBER OF VIEWS: One view. TECHNIQUE: Supine radiographic image of the abdomen acquired. LIMITATIONS: None. FINDINGS: BOWEL GAS PATTERN: Diffuse gaseous distension of stomach and small bowel, few air-filled c olon bowel loops. This most likely represents an ileus. CALCIFICATIONS: No suspicious calcifications. SOFT TISSUES: No gross mass or suggestion of organomegaly. HARDWARE: Midline anterior abdominal wall que. Marcus-Daley drain in the pelvis. BONES: Osteopenic. No acute changes OTHER: Trace postoperative free intraperitoneal air in the right upper quadrant IMPRESSION: Probable postoperative ileus, with diffuse gaseous distension of stomach small bowel and colon. Trace postoperative free air in the right upper quadrant. TECHNICAL DOCUMENTATION: JOB ID: [id number] [employer]- All Rights Reserved
[2017-04-07] MEDS ORDERED: GLUCAGON,HUMAN RECOMB 1 MG INJ SUBCUT PRN (08:49)
[2017-04-07] MEDS ORDERED: DEXTROSE 50%-WATER 25 GM/50 ML DISP.SYRIN IV PRN ×2 (08:49)
[2017-04-07] MEDS ORDERED: DEXTROSE 40% GEL 15 GM TUBE PO PRN ×2 (08:49)
--- NOTE | 2017-04-07 08:49 | PDOC PROGRESS REPORT ---
Subjective Progress Note for:: 04/07/17 Subjective:: nausea, no emesis, passing flatus Physical Exam Vital Signs: Temp Pulse Resp BP Pulse Ox 97.4 F 84 18 167/97 H 100 04/07/17 03:20 04/07/17 03:20 04/07/17 03:20 04/07/17 06:20 04/07/17 03:20 Intake & Output 04/06/17 04/07/17 04/08/17 06:59 06:59 05:59 Intake Total 2435 5034 Output Total 610 2130 100 Balance 1825 2904 -100 Weight 82.9 kg 82.9 kg General appearance: PRESENT: no acute distress, cooperative Respiratory exam: PRESENT: clear to auscultation andria Cardiovascular exam: PRESENT: RRR GI/Abdominal exam: PRESENT: other - soft, mildly distended, mild tenderness with no periotneal signs, drain output serosanguinous, positive bowel sounds but decreased Extremities exam: PRESENT: other - no swelling. Skin exam: PRESENT: warm Results Laboratory Results: 04/04/17 06:28 04/04/17 06:28 Impressions: KUB X-Ray 04/07/17 00:00 IMPRESSION: Probable postoperative ileus, with diffuse gaseous distension of stomach small bowel and colon. Trace postoperative free air in the right upper quadrant. Assessment & Plan - Diagnosis (1) Rectal cancer Is this a current diagnosis for this admission?: Yes Plan: ?ileus. back off diet. check labs.
[2017-04-07] MEDS: FAMOTIDINE INJ/PF 20 MG/2 ML SDV IV SCH ×2 (09:59→21:26)
[2017-04-07] MEDS: LOSARTAN POTASSIUM 50 MG TABLET PO SCH ×2 (09:59→21:26)
[2017-04-07] MEDS: ENOXAPARIN SODIUM INJ 40 MG/0.4 ML DISP.SYRIN SUBCUT SCH (09:59)
[2017-04-07] MEDS ORDERED: LOSARTAN POTASSIUM 50 MG TABLET PO SCH ×2 (10:00)
[2017-04-07] MEDS: DEXTROSE 5%-1/2 NORMAL SALINE 1,000 ML IV PRN ×2 (10:05→20:27)
[2017-04-07 10:10] LABS: ABSOLUTE EOSINOPHILS # (AUTO) 0.1 10^3/uL (0.0-0.6); ABSOLUTE LYMPHOCYTES (AUTO) 0.5 10^3/uL (0.5-4.7); ABSOLUTE MONOCYTES (AUTO) 0.3 10^3/uL (0.1-1.4); ABSOLUTE NEUT (AUTO) 2.4 10^3/uL (1.7-8.2); BASOPHILS % (AUTO) 0.3 % (0-2); EOSINOPHILS % (AUTO) 4.5 % (0-6); HEMATOCRIT 29.1 % (37.9-51.0); HEMOGLOBIN 9.8 g/dL (13.5-17.0); HGB HCT DIFFERENCE 0.3; LYMPHOCYTES % (AUTO) 13.8 % (13-45); MEAN CORPUSCULAR HEMOGLOBIN 33.9 pg (27.0-33.4); MEAN CORPUSCULAR HGB CONC 33.8 g/dL (32.0-36.0); MEAN CORPUSCULAR VOLUME 101 fl (80-97); MONOCYTES % (AUTO) 9.6 % (3-13); RED CELL DISTRIBUTION WIDTH 18.4 % (11.5-14.0); SEGMENTED NEUTROPHILS % (AUTO) 71.8 % (42-78); WHITE BLOOD COUNT 3.4 10^3/uL (4.0-10.5)
[2017-04-07 10:29] LABS: ALANINE AMINOTRANSFERASE 29 U/L (21-72); ALBUMIN 2.5 g/dL (3.5-5.0); ALKALINE PHOSPHATASE 58 U/L (38-126); ANION GAP 11 (5-19); ASPARTATE AMINO TRANSFERASE 10 U/L (17-59); BILIRUBIN,DIRECT 0.4 mg/dL (0.0-0.4); BILIRUBIN,TOTAL 0.5 mg/dL (0.2-1.3); BLOOD UREA NITROGEN 13 mg/dL (7-20); CALCIUM 8.7 mg/dL (8.4-10.2); CARBON DIOXIDE 21 mmol/L (22-30); CHLORIDE 109 mmol/L (98-107); CREATININE RESULT 0.71 mg/dL (0.52-1.25); GLUCOSE 76 mg/dL (75-110); POTASSIUM 3.6 mmol/L (3.6-5.0); SODIUM 140.8 mmol/L (137-145); TOTAL PROTEIN 4.8 g/dL (6.3-8.2)
[2017-04-08] MEDS: MORPHINE SULFATE 10 MG/ML INJ IV PRN ×3 (04:46→23:43)
[2017-04-08 07:00] LABS: BLOOD UREA NITROGEN 10 mg/dL (7-20); CALCIUM 8.3 mg/dL (8.4-10.2); CARBON DIOXIDE 23 mmol/L (22-30); CHLORIDE 109 mmol/L (98-107); CREATININE RESULT 0.64 mg/dL (0.52-1.25); GLUCOSE 111 mg/dL (75-110); POTASSIUM 3.6 mmol/L (3.6-5.0); SODIUM 139.1 mmol/L (137-145)
[2017-04-08 07:01] LABS: ANION GAP 7 (5-19); MAGNESIUM 1.7 mg/dL (1.6-2.3)
[2017-04-08 07:04] LABS: ABSOLUTE EOSINOPHILS # (AUTO) 0.2 10^3/uL (0.0-0.6); ABSOLUTE LYMPHOCYTES (AUTO) 0.6 10^3/uL (0.5-4.7); ABSOLUTE MONOCYTES (AUTO) 0.4 10^3/uL (0.1-1.4); ABSOLUTE NEUT (AUTO) 3.4 10^3/uL (1.7-8.2); BASOPHILS % (AUTO) 0.4 % (0-2); EOSINOPHILS % (AUTO) 3.6 % (0-6); HEMATOCRIT 30.8 % (37.9-51.0); HEMOGLOBIN 10.3 g/dL (13.5-17.0); HGB HCT DIFFERENCE 0.1; LYMPHOCYTES % (AUTO) 13.8 % (13-45); MEAN CORPUSCULAR HEMOGLOBIN 33.1 pg (27.0-33.4); MEAN CORPUSCULAR HGB CONC 33.4 g/dL (32.0-36.0); MEAN CORPUSCULAR VOLUME 99 fl (80-97); RED CELL DISTRIBUTION WIDTH 18.6 % (11.5-14.0); SEGMENTED NEUTROPHILS % (AUTO) 74.2 % (42-78); WHITE BLOOD COUNT 4.5 10^3/uL (4.0-10.5)
[2017-04-08] MEDS: FAMOTIDINE INJ/PF 20 MG/2 ML SDV IV SCH ×2 (09:41→21:02)
[2017-04-08] MEDS: LOSARTAN POTASSIUM 50 MG TABLET PO SCH ×2 (09:41→21:02)
[2017-04-08] MEDS: ENOXAPARIN SODIUM INJ 40 MG/0.4 ML DISP.SYRIN SUBCUT SCH (09:41)
--- NOTE | 2017-04-08 20:02 | PDOC PROGRESS REPORT ---
Subjective Progress Note for:: 04/08/17 Subjective:: Patient denies abdominal pains. Still do not have any passage of flatus yet. No nausea or vomiting Physical Exam Vital Signs: Temp Pulse Resp BP Pulse Ox 97.3 F 73 20 130/86 H 100 04/08/17 16:00 04/08/17 16:00 04/08/17 16:00 04/08/17 16:00 04/08/17 16:00 Intake & Output 04/07/17 04/08/17 04/09/17 07:59 06:59 06:59 Intake Total 1560 Output Total 150 Balance 1410 Weight General appearance: PRESENT: no acute distress Exam: Patient can also hear some rumbling in his stomach. The abdomen is soft with minimal tenderness along the incision site. Incision looks clean and dry Results Laboratory Results: 04/08/17 06:07 04/08/17 06:07 04/08/17 04/08/17 06:07 06:07 WBC 4.5 RBC 3.10 L Hgb 10.3 L Hct 30.8 L MCV 99 H MCH 33.1 MCHC 33.4 RDW 18.6 H Plt Count 191 Seg Neutrophils % 74.2 Lymphocytes % 13.8 Monocytes % 8.0 Eosinophils % 3.6 Basophils % 0.4 Absolute Neutrophils 3.4 Absolute Lymphocytes 0.6 Absolute Monocytes 0.4 Absolute Eosinophils 0.2 Absolute Basophils 0.0 Sodium 139.1 Potassium 3.6 Chloride 109 H Carbon Dioxide 23 Anion Gap 7 BUN 10 Creatinine 0.64 Est GFR ( Amer) > 60 Est GFR (Non-Af Amer) > 60 Glucose 111 H Calcium 8.3 L Magnesium 1.7 Impressions: KUB X-Ray 04/07/17 00:00 IMPRESSION: Probable postoperative ileus, with diffuse gaseous distension of stomach small bowel and colon. Trace postoperative free air in the right upper quadrant. Assessment & Plan - Time Time Spent with patient: 15-24 minutes - Inpatient Certification Medical Necessity: Need For IV Fluids - Plan Summary Plan Summary: #1 since patient's ileus is not completely resolved we will hold off giving him liquids. She he can have a little bit of water at this time. Continue with IV fluids. 2. Continue to ambulate. #3 hopefully he will definitely open up by tomorrow with passage of flatus than his diet can be increased. He will be seen by Dr. Hu in a.m.
[2017-04-09] MEDS: DEXTROSE 5%-1/2 NORMAL SALINE 1,000 ML IV PRN (06:05)
[2017-04-09] MEDS ORDERED: GLUCAGON,HUMAN RECOMB 1 MG INJ SUBCUT PRN (09:05)
[2017-04-09] MEDS ORDERED: DEXTROSE 40% GEL 15 GM TUBE PO PRN ×2 (09:05)
[2017-04-09] MEDS ORDERED: DEXTROSE 50%-WATER 25 GM/50 ML DISP.SYRIN IV PRN ×2 (09:05)
--- NOTE | 2017-04-09 09:05 | PDOC PROGRESS REPORT ---
Subjective Progress Note for:: 04/09/17 Subjective:: Minimal pain. Not passing gas. But not vomiting. Patient hears rumbling in his abdomen Physical Exam Vital Signs: Temp Pulse Resp BP Pulse Ox 97.5 F 70 18 140/89 H 99 04/09/17 00:17 04/09/17 00:17 04/09/17 00:17 04/09/17 00:17 04/09/17 00:17 Intake & Output 04/08/17 04/09/17 04/10/17 06:59 06:59 06:59 Intake Total 3800 Output Total 260 Balance 3540 Weight 81.4 kg General appearance: PRESENT: no acute distress, cooperative Respiratory exam: PRESENT: clear to auscultation andria Cardiovascular exam: PRESENT: RRR GI/Abdominal exam: PRESENT: other - Soft, mildly distended, minimal tenderness. Wound clean dry and intact. Drain output is serosanguineous. There is bowel sounds but diminished. Extremities exam: PRESENT: other - No swelling. Results Laboratory Results: 04/08/17 06:07 04/08/17 06:07 Impressions: KUB X-Ray 04/07/17 00:00 IMPRESSION: Probable postoperative ileus, with diffuse gaseous distension of stomach small bowel and colon. Trace postoperative free air in the right upper quadrant. Assessment & Plan - Diagnosis (1) Rectal cancer Is this a current diagnosis for this admission?: Yes Plan: Still with evidence of postoperative ileus. Will DC his drain. Patient ambulating well. Will replace his potassium. Try a Dulcolax.
[2017-04-09] MEDS ORDERED: DEXTROSE 5%-1/2 NORMAL SALINE 1,000 ML with POTASSIUM CHLORIDE 40 MEQ IV PRN ×2 (09:07)
[2017-04-09] MEDS: POTASSI CL 40 MEQ/D5-1/2NS 1L 1000 ML IV PRN ×2 (09:21→22:15)
[2017-04-09] MEDS: ENOXAPARIN SODIUM INJ 40 MG/0.4 ML DISP.SYRIN SUBCUT SCH (09:23)
[2017-04-09] MEDS: LOSARTAN POTASSIUM 50 MG TABLET PO SCH ×2 (09:24→22:15)
[2017-04-09] MEDS: MORPHINE SULFATE 10 MG/ML INJ IV PRN (09:25)
[2017-04-09] MEDS: FAMOTIDINE INJ/PF 20 MG/2 ML SDV IV SCH ×2 (09:26→22:15)
[2017-04-09] MEDS ORDERED: BISACODYL 5 MG TABEC PO ONE (09:30)
--- NOTE | 2017-04-09 17:04 | PDOC PROGRESS REPORT ---
Subjective Progress Note for:: 04/08/17 Subjective:: This is a 57-year-old white male past medical history metastatic adenocarcinoma of the colon he had a resection of his colon mass. We were asked to see him for hypertension. Patient has a SALUD drain and a KUB confirmed an ileus. So we have decreased his diet to clear liquids only hurts if his ileus will resolve soon. Patient does have hypoactive bowel sounds and passinga little more gas today. Patient tolerating clear liquid no nausea vomiting Physical Exam Vital Signs: Temp Pulse Resp BP Pulse Ox 97.4 F 68 20 133/87 H 100 04/08/17 12:00 04/08/17 12:00 04/08/17 12:00 04/08/17 12:00 04/08/17 12:00 Intake & Output 04/07/17 04/08/17 04/09/17 07:59 06:59 06:59 Intake Total Output Total 150 Balance -150 Weight General appearance: PRESENT: no acute distress, well-developed, well-nourished Head exam: PRESENT: atraumatic, normocephalic Eye exam: PRESENT: conjunctiva pink, EOMI, PERRLA. ABSENT: scleral icterus Ear exam: PRESENT: normal external ear exam Mouth exam: PRESENT: moist, tongue midline Neck exam: ABSENT: carotid bruit, JVD, lymphadenopathy, thyromegaly Respiratory exam: PRESENT: clear to auscultation andria. ABSENT: rales, rhonchi, wheezes Cardiovascular exam: PRESENT: RRR. ABSENT: diastolic murmur, rubs, systolic murmur Pulses: PRESENT: normal dorsalis pedis pul Vascular exam: PRESENT: normal capillary refill GI/Abdominal exam: PRESENT: diminished bowel sounds, hypoactive bowel sounds, mass, soft, tenderness. ABSENT: distended, guarding, organolmegaly, rebound Rectal exam: PRESENT: deferred Extremities exam: PRESENT: full ROM. ABSENT: calf tenderness, clubbing, pedal edema Neurological exam: PRESENT: alert, awake, oriented to person, oriented to place , oriented to time, oriented to situation, CN II-XII grossly intact. ABSENT: motor sensory deficit Psychiatric exam: PRESENT: appropriate affect, normal mood. ABSENT: homicidal ideation, suicidal ideation Skin exam: PRESENT: dry, intact, warm. ABSENT: cyanosis, rash Results Laboratory Results: 04/08/17 06:07 04/08/17 06:07 04/08/17 04/08/17 06:07 06:07 WBC 4.5 RBC 3.10 L Hgb 10.3 L Hct 30.8 L MCV 99 H MCH 33.1 MCHC 33.4 RDW 18.6 H Plt Count 191 Seg Neutrophils % 74.2 Lymphocytes % 13.8 Monocytes % 8.0 Eosinophils % 3.6 Basophils % 0.4 Absolute Neutrophils 3.4 Absolute Lymphocytes 0.6 Absolute Monocytes 0.4 Absolute Eosinophils 0.2 Absolute Basophils 0.0 Sodium 139.1 Potassium 3.6 Chloride 109 H Carbon Dioxide 23 Anion Gap 7 BUN 10 Creatinine 0.64 Est GFR ( Amer) > 60 Est GFR (Non-Af Amer) > 60 Glucose 111 H Calcium 8.3 L Magnesium 1.7 Impressions: KUB X-Ray 04/07/17 00:00 IMPRESSION: Probable postoperative ileus, with diffuse gaseous distension of stomach small bowel and colon. Trace postoperative free air in the right upper quadrant. Assessment & Plan - Diagnosis (1) Alcohol use Is this a current diagnosis for this admission?: Yes Plan: Has history of alcohol abuse. No signs of DTs noted or need for as needed anxiety medication. (2) Hypertension Qualifiers: Hypertension type: unspecified Qualified Code(s): I10 - Essential (primary ) hypertension Is this a current diagnosis for this admission?: Yes (3) Rectal cancer Is this a current diagnosis for this admission?: Yes Plan: Dr. Chauhan hematology oncology is following patient in the outpatient. Stable blood pressure no acute changes (4) Colon cancer Qualifiers: Colon location: unspecified part of colon Qualified Code(s): C18.9 - Malignant neoplasm of colon, unspecified Is this a current diagnosis for this admission?: Yes Plan: Defer encourage hematology oncology will consider go ahead making that referral. (5) Ileus following gastrointestinal surgery Is this a current diagnosis for this admission?: Yes Plan: Patient has a history of some alcohol use. But he does not appear to be having any DTs or signs of withdrawal. Patient has been ileus no signs of obstruction or perforation. He remains afebrile pain has not increased. Will continue to hold off on advancing his diet and monitor him for bowel movements. Will not give him anything by mouth to stimulate a bowel movement. May consider a suppository later if no results. Will defer this to surgery
--- NOTE | 2017-04-09 17:06 | PDOC PROGRESS REPORT ---
Subjective Progress Note for:: 04/09/17 Subjective:: This is a 57-year-old white male past medical history metastatic adenocarcinoma of the colon he had a resection of his colon mass. We were asked to see him for hypertension. Patient has a SALUD drain and a KUB confirmed an ileus. So we have decreased his diet to clear liquids only hurts if his ileus will resolve soon. Patient does have hypoactive bowel sounds and passinga little more gas today. Patient tolerating clear liquid no nausea vomiting Physical Exam Vital Signs: Temp Pulse Resp BP Pulse Ox 97.7 F 73 20 145/84 H 99 04/09/17 16:13 04/09/17 16:13 04/09/17 16:13 04/09/17 16:13 04/09/17 16:13 Intake & Output 04/08/17 04/09/17 04/10/17 06:59 06:59 06:59 Intake Total 3800 200 Output Total 260 Balance 3540 200 Weight 81.4 kg General appearance: PRESENT: no acute distress, well-developed, well-nourished Head exam: PRESENT: atraumatic, normocephalic Eye exam: PRESENT: conjunctiva pink, EOMI, PERRLA. ABSENT: scleral icterus Ear exam: PRESENT: normal external ear exam Mouth exam: PRESENT: moist, tongue midline Neck exam: ABSENT: carotid bruit, JVD, lymphadenopathy, thyromegaly Respiratory exam: PRESENT: clear to auscultation andria. ABSENT: rales, rhonchi, wheezes Cardiovascular exam: PRESENT: RRR. ABSENT: diastolic murmur, rubs, systolic murmur Pulses: PRESENT: normal dorsalis pedis pul Vascular exam: PRESENT: normal capillary refill GI/Abdominal exam: PRESENT: normal bowel sounds, soft. ABSENT: distended, guarding, mass, organolmegaly, rebound, tenderness Rectal exam: PRESENT: deferred Extremities exam: PRESENT: full ROM. ABSENT: calf tenderness, clubbing, pedal edema Neurological exam: PRESENT: alert, awake, oriented to person, oriented to place , oriented to time, oriented to situation, CN II-XII grossly intact. ABSENT: motor sensory deficit Psychiatric exam: PRESENT: appropriate affect, normal mood. ABSENT: homicidal ideation, suicidal ideation Skin exam: PRESENT: dry, intact, warm. ABSENT: cyanosis, rash Results Laboratory Results: 04/08/17 06:07 04/08/17 06:07 Impressions: KUB X-Ray 04/07/17 00:00 IMPRESSION: Probable postoperative ileus, with diffuse gaseous distension of stomach small bowel and colon. Trace postoperative free air in the right upper quadrant. Assessment & Plan - Diagnosis (1) Hypertension Qualifiers: Hypertension type: essential hypertension Qualified Code(s): I10 - Essential (primary) hypertension Is this a current diagnosis for this admission?: Yes Plan: Stable blood pressure no new changes seen to be tolerating medications well (2) Rectal cancer Is this a current diagnosis for this admission?: Yes Plan: Dr. Chauhan hematology oncology is following patient in the outpatient. Stable blood pressure no acute changes (3) Colon cancer Qualifiers: Colon location: unspecified part of colon Qualified Code(s): C18.9 - Malignant neoplasm of colon, unspecified Is this a current diagnosis for this admission?: Yes Plan: Defer encourage hematology oncology will consider go ahead making that referral. (4) Ileus following gastrointestinal surgery Is this a current diagnosis for this admission?: Yes Plan: Patient has a history of some alcohol use. But he does not appear to be having any DTs or signs of withdrawal. Patient has been ileus no signs of obstruction or perforation. He remains afebrile pain has not increased. Will continue to hold off on advancing his diet and monitor him for bowel movements. Will not give him anything by mouth to stimulate a bowel movement. May consider a suppository later if no results. Will defer this to surgery Complaint having little more belching today and surgery wanted to give him Dulcolax p.o. (5) Alcohol use Is this a current diagnosis for this admission?: Yes Plan: Has history of alcohol abuse. No signs of DTs noted or need for as needed anxiety medication.
[2017-04-10] MEDS: ONDANSETRON HCL INJ/PF 4 MG/2 ML SDV IV PRN ×4 (06:25→22:17)
[2017-04-10] MEDS: ENOXAPARIN SODIUM INJ 40 MG/0.4 ML DISP.SYRIN SUBCUT SCH (09:54)
[2017-04-10] MEDS: FAMOTIDINE INJ/PF 20 MG/2 ML SDV IV SCH ×2 (09:55→22:17)
--- NOTE | 2017-04-10 10:00 | RADIOLOGY REPORT (SQ) ---
EXAM DESCRIPTION: ABDOMEN 2 VIEWS COMPLETED DATE/TIME: 04/10/2017 9:29 am REASON FOR STUDY: r/o sbo C18.9 MALIGNANT NEOPLASM OF COLON, UNSPECIFIED COMPARISON: CT chest abdomen pelvis 03/08/2017 KUB abdomen pelvis 04/07/2017 NUMBER OF VIEWS: Two views. TECHNIQUE: Supine and upright radiographic images of the abdomen acquired. LIMITATIONS: None. FINDINGS: FREE AIR: There is a large amount of subdiaphragmatic free air under the right and left he midiaphragms, more than would be expected 1 week after surgery. Question bowel wall perforation. Th is report was discussed with Dr. Hu. LUNG BASES: Clear. BOWEL GAS PATTERN: There are distended small bowel loops in the mid epigastrium. Air-fluid level in stomach and transverse colon. Small amount of air and stool in the descending colon. This may repre sent a postoperative ileus. CALCIFICATIONS: No suspicious calcifications. SOFT TISSUES: No gross mass or suggestion of organomegaly. HARDWARE: Anterior abdominal wall que. Rectosigmoid anastomotic que. BONES: No acute fracture. No worrisome bone lesions. OTHER: No other significant finding. IMPRESSION: Large amount of subdiaphragmatic free air with persistent ileus pattern. Findings discu ssed with Dr. Hu. Planning CT abdomen and pelvis for followup. TECHNICAL DOCUMENTATION: JOB ID: [id number] [email or web address]- All Rights Reserved
--- NOTE | 2017-04-10 10:02 | PDOC PROGRESS REPORT ---
Subjective Progress Note for:: 04/10/17 Subjective:: Had nausea and vomiting last night. He was much better this morning. Passing gas. Minimal abdominal discomfort. Physical Exam Vital Signs: Temp Pulse Resp BP Pulse Ox 97.5 F 72 18 145/87 H 98 04/10/17 00:00 04/10/17 00:00 04/10/17 00:00 04/10/17 00:00 04/10/17 00:00 Intake & Output 04/09/17 04/10/17 04/11/17 06:59 06:59 06:59 Intake Total 3800 1280 1277 Output Total 260 140 Balance 3540 1140 1277 Weight 81.4 kg 82.2 kg General appearance: PRESENT: no acute distress, cooperative Respiratory exam: PRESENT: clear to auscultation andria Cardiovascular exam: PRESENT: RRR GI/Abdominal exam: PRESENT: other - Soft, mildly distended, minimal tenderness. No peritoneal signs. Wound clean dry and intact. Extremities exam: PRESENT: other - No swelling Results Laboratory Results: 04/08/17 06:07 04/08/17 06:07 Impressions: KUB X-Ray 04/07/17 00:00 IMPRESSION: Probable postoperative ileus, with diffuse gaseous distension of stomach small bowel and colon. Trace postoperative free air in the right upper quadrant. Assessment & Plan - Diagnosis (1) Rectal cancer Is this a current diagnosis for this admission?: Yes Plan: Status post low anterior resection. KUB a bit concerning with large amount of free air and dilated loops of bowel throughout. However patient does not appear by exam to have a perforation. He states that he feels much better and has been passing flatus this morning. Will check a abdominal pelvic CT scan with oral and IV contrast to further evaluate the patient. Keep patient n.p.o.
[2017-04-10] MEDS: LOSARTAN POTASSIUM 50 MG TABLET PO SCH ×2 (11:55→22:17)
[2017-04-10 12:05] LABS: ABSOLUTE LYMPHOCYTES (AUTO) 0.4 10^3/uL (0.5-4.7); ABSOLUTE MONOCYTES (AUTO) 0.3 10^3/uL (0.1-1.4); ABSOLUTE NEUT (AUTO) 4.1 10^3/uL (1.7-8.2); BASOPHILS % (AUTO) 0.5 % (0-2); EOSINOPHILS % (AUTO) 0.5 % (0-6); HEMATOCRIT 31.2 % (37.9-51.0); HEMOGLOBIN 10.4 g/dL (13.5-17.0); LYMPHOCYTES % (AUTO) 9.1 % (13-45); MEAN CORPUSCULAR HEMOGLOBIN 33.3 pg (27.0-33.4); MEAN CORPUSCULAR HGB CONC 33.2 g/dL (32.0-36.0); MEAN CORPUSCULAR VOLUME 100 fl (80-97); MONOCYTES % (AUTO) 6.1 % (3-13); RED BLOOD COUNT 3.12 10^6/uL (4.35-5.55); RED CELL DISTRIBUTION WIDTH 18.4 % (11.5-14.0); SEGMENTED NEUTROPHILS % (AUTO) 83.8 % (42-78); WHITE BLOOD COUNT 4.8 10^3/uL (4.0-10.5)
[2017-04-10 12:36] LABS: ANION GAP 9 (5-19); BLOOD UREA NITROGEN 8 mg/dL (7-20); CALCIUM 9.3 mg/dL (8.4-10.2); CARBON DIOXIDE 27 mmol/L (22-30); CHLORIDE 107 mmol/L (98-107); CREATININE RESULT 0.66 mg/dL (0.52-1.25); GLUCOSE 117 mg/dL (75-110); POTASSIUM 4.1 mmol/L (3.6-5.0); SODIUM 142.8 mmol/L (137-145)
--- NOTE | 2017-04-10 14:33 | RADIOLOGY REPORT (SQ) ---
EXAM DESCRIPTION: CT ABD/PELVIS WITH IV ORAL COMPLETED DATE/TIME: 04/10/2017 1:41 pm REASON FOR STUDY: r/o sbo C18.9 MALIGNANT NEOPLASM OF COLON, UNSPECIFIED COMPARISON: CT abdomen pelvis 03/08/2017 TECHNIQUE: CT scan of the abdomen and pelvis performed using helical scanning technique with dynamic intravenous contrast injection. Patient drank oral contrast. Images reviewed with lung, soft tissue , and bone windows. Reconstructed coronal and sagittal MPR images reviewed. Delayed images for evalua tion of the urinary system also acquired. All images stored on PACS. All CT scanners at this facility use dose modulation, iterative reconstruction, and/or weight based d osing when appropriate to reduce radiation dose to as low as reasonably achievable (ALARA). [facility]: Dose Right [facility]: CareDose [facility]: Dose Right [facility]: Teradose 4D [facility]: for[MD] CONTRAST TYPE AND DOSE: contrast/concentration: Isovue 370.00 mg/ml; Total Contrast Delivered: 89.0 ml; Total Saline Delivered: 70.0 ml RENAL FUNCTION: Creatinine 0.64 RADIATION DOSE: Up-to-date CT equipment and radiation dose reduction techniques were employed. CTDIv ol: 5.0 - 5.9 mGy. DLP: 608 mGy-cm.. LIMITATIONS: None. FINDINGS: Patient drank oral contrast. Stomach and small bowel and colon are distended with fluid , likely from ileus. There is oral contrast from the stomach through the ascending colon suggesting against mechanical obstruction. There is still a moderate amount of subdiaphragmatic free air. Small amount of intraperitoneal and r etroperitoneal air is seen more inferiorly in the abdomen and pelvis. There is no significant perire ctal air to suggest anastomotic leak. There is a small amount of intermediate density fluid in the presacral space likely small amount of p ostoperative hemorrhage. There is no peripheral rim enhancement or air bubble to suggest abscess. These findings were discussed with Dr. Hu, 1400 hours, 04/10/2017. LOWER CHEST: No significant findings. No nodules or infiltrates. LIVER: Normal size. No masses. No dilated ducts. SPLEEN: Normal size. No focal lesions. PANCREAS: No masses. No significant calcifications. No adjacent inflammation or peripancreatic fluid collections. Pancreatic duct not dilated. GALLBLADDER: No identified stones by CT criteria. No inflammatory changes to suggest cholecystitis. ADRENAL GLANDS: No significant masses or asymmetry. RIGHT KIDNEY AND URETER: No solid masses. No significant calcifications. No hydronephrosis or hyd roureter. LEFT KIDNEY AND URETER: No solid masses. No significant calcifications. No hydronephrosis or hydr oureter. AORTA AND VESSELS: No aneurysm. No dissection. Renal arteries, SMA, celiac without stenosis. RETROPERITONEUM: No retroperitoneal adenopathy, hemorrhage or masses. BOWEL AND PERITONEAL CAVITY: As above APPENDIX: Surgically absent PELVIS: As above. Normal bladder. No adenopathy. Small amount of presacral postoperative hemorrhag e. Anastomotic rectosigmoid que are present without adjacent perirectal air or fluid worrisome f or leak ABDOMINAL WALL: No masses. No hernias. Midline anterior abdominal wall surgical que. BONES: No significant or acute findings. OTHER: No other significant finding. IMPRESSION: Probable continued ileus, with mild diffuse distention of stomach small bowel and colon. Persistent postoperative free air. Small amount of presacral retroperitoneal hemorrhage Anastomotic rectosigmoid que. Findings discussed with Dr. Hu TECHNICAL DOCUMENTATION: JOB ID: [id number] Quality ID # [id number]: Final reports with documentation of one or more dose reduction techniques (e.g., Au tomated exposure control, adjustment of the mA and/or kV according to patient size, use of iterative reconstruction technique) 2010 [employer] All Rights Reserved
--- NOTE | 2017-04-10 16:29 | PDOC PROGRESS REPORT ---
Subjective Progress Note for:: 04/10/17 Subjective:: Status post abdominal pelvic CT scan with oral contrast patient has had multiple bowel movements. Patient feels very well. He is hungry. He has no abdominal pain. Physical Exam Vital Signs: Temp Pulse Resp BP Pulse Ox 97.3 F 68 18 148/90 H 100 04/10/17 12:00 04/10/17 12:00 04/10/17 12:00 04/10/17 12:00 04/10/17 12:00 Intake & Output 04/09/17 04/10/17 04/11/17 06:59 06:59 06:59 Intake Total 3800 1280 1277 Output Total 260 140 Balance 3540 1140 1277 Weight 81.4 kg 82.2 kg General appearance: PRESENT: no acute distress, cooperative GI/Abdominal exam: PRESENT: other - Soft, nondistended, nontender to palpation. Clean dry and intact. Results Laboratory Results: 04/10/17 11:49 04/10/17 11:49 04/10/17 04/10/17 11:49 11:49 WBC 4.8 RBC 3.12 L Hgb 10.4 L Hct 31.2 L MCV 100 H MCH 33.3 MCHC 33.2 RDW 18.4 H Plt Count 270 Seg Neutrophils % 83.8 H Lymphocytes % 9.1 L Monocytes % 6.1 Eosinophils % 0.5 Basophils % 0.5 Absolute Neutrophils 4.1 Absolute Lymphocytes 0.4 L Absolute Monocytes 0.3 Absolute Eosinophils 0.0 Absolute Basophils 0.0 Sodium 142.8 Potassium 4.1 Chloride 107 Carbon Dioxide 27 Anion Gap 9 BUN 8 Creatinine 0.66 Est GFR ( Amer) > 60 Est GFR (Non-Af Amer) > 60 Glucose 117 H Calcium 9.3 Impressions: KUB X-Ray 04/07/17 00:00 IMPRESSION: Probable postoperative ileus, with diffuse gaseous distension of stomach small bowel and colon. Trace postoperative free air in the right upper quadrant. Abdomen X-Ray 04/10/17 00:00 IMPRESSION: Large amount of subdiaphragmatic free air with persistent ileus pattern. Findings discussed with Dr. Hu. Planning CT abdomen and pelvis for followup. Abdomen/Pelvis CT 04/10/17 00:00 IMPRESSION: Probable continued ileus, with mild diffuse distention of stomach small bowel and colon. Persistent postoperative free air. Small amount of presacral retroperitoneal hemorrhage Anastomotic rectosigmoid que. Findings discussed with Dr. Hu Assessment & Plan - Diagnosis (1) Rectal cancer Is this a current diagnosis for this admission?: Yes Plan: CT scan demonstrated some free air with the contrast going into the right colon and some small bowel dilation. His physical exam looks very good with absolutely no tenderness. Patient feels quite well. His vital signs look good and his laboratory evaluation looks good. His clinical appearance is not consistent with a bowel perforation nor anastomotic leak. Therefore will go ahead and start a soft diet. If he does well we will plan to discharge patient home tomorrow.
--- NOTE | 2017-04-10 17:01 | PDOC PROGRESS REPORT ---
Subjective Progress Note for:: 04/10/17 Subjective:: Pt is seen as a consultation for management of hypertension. Upon entering room , pt is found resting in bed comfortably. He reports that following his CT study with oral contrast he had several bowel movements with good relief of abdominal discomfort. He denies current abdominal pain, nausea, and vomiting. Overall, he reports that he is feeling well and is hopeful for a discharge to home in the morning. He denies a history of HTN and reports that he has not been on medications for blood pressure previously. He denies side effects r/t new start of Cozaar this week. He has no questions or concerns today. Physical Exam Vital Signs: Temp Pulse Resp BP Pulse Ox 97.3 F 68 18 148/90 H 100 04/10/17 12:00 04/10/17 12:00 04/10/17 12:00 04/10/17 12:00 04/10/17 12:00 Intake & Output 04/09/17 04/10/17 04/11/17 06:59 06:59 06:59 Intake Total 3800 1280 1277 Output Total 260 140 Balance 3540 1140 1277 Weight 81.4 kg 82.2 kg General appearance: PRESENT: no acute distress, thin, well-developed Head exam: PRESENT: atraumatic, normocephalic Eye exam: PRESENT: conjunctiva pink, EOMI, PERRLA. ABSENT: scleral icterus Ear exam: PRESENT: normal external ear exam Mouth exam: PRESENT: moist, tongue midline Neck exam: ABSENT: carotid bruit, JVD, lymphadenopathy, thyromegaly Respiratory exam: PRESENT: clear to auscultation andria, unlabored. ABSENT: rales , rhonchi, wheezes Cardiovascular exam: PRESENT: RRR, +S1, +S2. ABSENT: diastolic murmur, rubs, systolic murmur Pulses: PRESENT: normal dorsalis pedis pul Vascular exam: PRESENT: normal capillary refill GI/Abdominal exam: PRESENT: normal bowel sounds, soft, tenderness - mild diffuse tenderness. ABSENT: distended, guarding, mass, organolmegaly, rebound Rectal exam: PRESENT: deferred Extremities exam: PRESENT: full ROM. ABSENT: calf tenderness, clubbing, pedal edema Neurological exam: PRESENT: alert, awake, oriented to person, oriented to place , oriented to time, oriented to situation, CN II-XII grossly intact. ABSENT: motor sensory deficit Psychiatric exam: PRESENT: appropriate affect, normal mood. ABSENT: homicidal ideation, suicidal ideation Skin exam: PRESENT: dry, intact, warm. ABSENT: cyanosis, rash Results Laboratory Results: 04/10/17 11:49 04/10/17 11:49 04/10/17 04/10/17 11:49 11:49 WBC 4.8 RBC 3.12 L Hgb 10.4 L Hct 31.2 L MCV 100 H MCH 33.3 MCHC 33.2 RDW 18.4 H Plt Count 270 Seg Neutrophils % 83.8 H Lymphocytes % 9.1 L Monocytes % 6.1 Eosinophils % 0.5 Basophils % 0.5 Absolute Neutrophils 4.1 Absolute Lymphocytes 0.4 L Absolute Monocytes 0.3 Absolute Eosinophils 0.0 Absolute Basophils 0.0 Sodium 142.8 Potassium 4.1 Chloride 107 Carbon Dioxide 27 Anion Gap 9 BUN 8 Creatinine 0.66 Est GFR ( Amer) > 60 Est GFR (Non-Af Amer) > 60 Glucose 117 H Calcium 9.3 Impressions: KUB X-Ray 04/07/17 00:00 IMPRESSION: Probable postoperative ileus, with diffuse gaseous distension of stomach small bowel and colon. Trace postoperative free air in the right upper quadrant. Abdomen X-Ray 04/10/17 00:00 IMPRESSION: Large amount of subdiaphragmatic free air with persistent ileus pattern. Findings discussed with Dr. Hu. Planning CT abdomen and pelvis for followup. Abdomen/Pelvis CT 04/10/17 00:00 IMPRESSION: Probable continued ileus, with mild diffuse distention of stomach small bowel and colon. Persistent postoperative free air. Small amount of presacral retroperitoneal hemorrhage Anastomotic rectosigmoid que. Findings discussed with Dr. Hu Assessment & Plan - Diagnosis (1) Hypertension Qualifiers: Hypertension type: essential hypertension Qualified Code(s): I10 - Essential (primary) hypertension Is this a current diagnosis for this admission?: Yes Plan: Started on Cozaar. Pt is tolerating well, but no appreciable improvements in BP. Will increase dose today. Pt will need to follow up with primary care for continued titration and consideration of additional medications. 1- Losartan 50 mg p.o. BID (2) Ileus following gastrointestinal surgery Is this a current diagnosis for this admission?: Yes Plan: Resolved. Pt passing gas and with multiple bowel movements today. Abd discomfort has improved significantly. Plan per Surgery; will advance diet today and anticipate d/c to home tomorrow. (3) Rectal cancer Is this a current diagnosis for this admission?: Yes Plan: S/p anterior resection by Dr. Hu. Plan per Surgery. (4) Alcohol use Is this a current diagnosis for this admission?: Yes Plan: Pt with hx of alcohol use; reports 2-3 drinks (beer) 2-3 nights/week. He denies hx of withdrawal. He denies current sx of anxiety, tremor, diaphoresis, etc. Do not anticipate pt will develop acute withdrawal sx while here; will continue to monitor. 1- ativan prn - Time Time Spent with patient: 15-24 minutes Medications reviewed and adjusted accordingly: Yes Anticipated discharge: Home Within: within 24 hours
[2017-04-10] MEDS: POTASSI CL 40 MEQ/D5-1/2NS 1L 1000 ML IV PRN (18:11)
[2017-04-11] MEDS: ONDANSETRON HCL INJ/PF 4 MG/2 ML SDV IV PRN (02:26)
[2017-04-11] MEDS: POTASSI CL 40 MEQ/D5-1/2NS 1L 1000 ML IV PRN (06:10)
--- NOTE | 2017-04-11 09:16 | PDOC PROGRESS REPORT ---
Subjective Progress Note for:: 04/11/17 Subjective:: Feels well. Tolerating diet well. Pain-free. Having bowel movements. Wants to go home. Physical Exam Vital Signs: Temp Pulse Resp BP Pulse Ox 97.2 F 61 20 130/77 H 99 04/11/17 07:27 04/11/17 07:27 04/11/17 07:27 04/11/17 07:27 04/11/17 07:27 Intake & Output 04/10/17 04/11/17 04/12/17 06:59 06:59 06:59 Intake Total 1280 2658 Output Total 140 230 Balance 1140 2428 Weight 82.2 kg 82.4 kg General appearance: PRESENT: no acute distress, cooperative Respiratory exam: PRESENT: clear to auscultation andria Cardiovascular exam: PRESENT: RRR GI/Abdominal exam: PRESENT: other - Soft, nondistended, nontender to palpation. Wound clean dry and intact. Extremities exam: PRESENT: other - No swelling Results Laboratory Results: 04/10/17 11:49 04/10/17 11:49 04/10/17 04/10/17 11:49 11:49 WBC 4.8 RBC 3.12 L Hgb 10.4 L Hct 31.2 L MCV 100 H MCH 33.3 MCHC 33.2 RDW 18.4 H Plt Count 270 Seg Neutrophils % 83.8 H Lymphocytes % 9.1 L Monocytes % 6.1 Eosinophils % 0.5 Basophils % 0.5 Absolute Neutrophils 4.1 Absolute Lymphocytes 0.4 L Absolute Monocytes 0.3 Absolute Eosinophils 0.0 Absolute Basophils 0.0 Sodium 142.8 Potassium 4.1 Chloride 107 Carbon Dioxide 27 Anion Gap 9 BUN 8 Creatinine 0.66 Est GFR ( Amer) > 60 Est GFR (Non-Af Amer) > 60 Glucose 117 H Calcium 9.3 Impressions: KUB X-Ray 04/07/17 00:00 IMPRESSION: Probable postoperative ileus, with diffuse gaseous distension of stomach small bowel and colon. Trace postoperative free air in the right upper quadrant. Abdomen X-Ray 04/10/17 00:00 IMPRESSION: Large amount of subdiaphragmatic free air with persistent ileus pattern. Findings discussed with Dr. Hu. Planning CT abdomen and pelvis for followup. Abdomen/Pelvis CT 04/10/17 00:00 IMPRESSION: Probable continued ileus, with mild diffuse distention of stomach small bowel and colon. Persistent postoperative free air. Small amount of presacral retroperitoneal hemorrhage Anastomotic rectosigmoid que. Findings discussed with Dr. Hu Assessment & Plan - Diagnosis (1) Rectal cancer Is this a current diagnosis for this admission?: Yes Plan: Doing very well. Will discharge patient home today.
[2017-04-11] MEDS: FAMOTIDINE INJ/PF 20 MG/2 ML SDV IV SCH (09:52)
[2017-04-11] MEDS: ENOXAPARIN SODIUM INJ 40 MG/0.4 ML DISP.SYRIN SUBCUT SCH (09:53)
[2017-04-11] MEDS: LOSARTAN POTASSIUM 50 MG TABLET PO SCH (09:53)
[2017-04-11 10:50] VITALS: BP 140/88
--- NOTE | 2017-04-11 10:57 | DISCHARGE SUMMARY E ---
Discharge Summary NAME: DAMASO HICKS : 1960 AGE: 57Y ADMITTED: 04/03/2017 DISCHARGED: 04/11/2017 DISCHARGE DIAGNOSIS: Rectal cancer. SECONDARY DIAGNOSIS: Hypertension. PROCEDURE PERFORMED DURING HOSPITALIZATION: Low anterior resection with mobilization of the splenic flexure performed by Dr. Bryan Blanco on April 03, 2017. HOSPITAL COURSE: The patient underwent the above mentioned surgery. His postoperative course was noteworthy for a prolonged ileus. Patient had an episode of nausea and vomiting following which he had an abdominal x-ray which demonstrated free air which is a bit unusual that far from surgery. Therefore, he had a subsequent abdominal/pelvic CT scan. CT scan demonstrated some postoperative changes. It did demonstrate some free air. However, patient appeared very well. He started having bowel movements. His vital signs remained stable with no fever and no tachycardia. His abdominal exam was normal with no distension and absolutely no tenderness to palpation. Patient was advanced in his diet. He felt quite well at the time of discharge. He was having good bowel function with bowel movements, tolerating a solid diet well with a soft, nondistended, nontender abdomen and stable vital signs at the time of discharge. Patient is now being discharged to home in good condition. He will follow up with me next week. He is also to followup with his primary care physician. He was started on Cozaar 50 mg b.i.d. in the hospital for hypertension. He may resume his other home medications. He is to stay active but avoid strenuous activity. He may follow a regular diet. DICTATING PHYSICIAN: BRYAN BLANCO M.D. [id number] Y#: [id number] ID: [id number] JOB#: [id number] ACCT: [id number] cc:BRYAN BLANCO M.D. > MTDD
== END 2017-04-11 11:30 | disposition home or self-care (01) | DRG 330 ==
LOC: INOR 10:39 → 4S 17:32 → 4W 04-09 07:41
PROVIDERS: ADMIT Surgery; ATTEND Surgery
PROC: 0DTN0ZZ Resection of Sigmoid Colon, Open Approach (ICD-10-PCS; principal; 2017-04-03 13:00)
DX: C19 Malignant neoplasm of rectosigmoid junction (principal); C78.7 Secondary malignant neoplasm of liver and intrahepatic bile duct; C77.9 Secondary and unspecified malignant neoplasm of lymph node, unspecified; K56.7 Ileus, unspecified; I10 Essential (primary) hypertension; Z92.3 Personal history of irradiation; Z87.891 Personal history of nicotine dependence; Z88.2 Allergy status to sulfonamides; Z88.6 Allergy status to analgesic agent; Z72.89 Other problems related to lifestyle
CPT/HCPCS: 36415; 74000; 74020; 74177; 80048; 80053; 82378; 83735; 840; 85025; 85027; 86850; 86900; 86901; 88307; 93005; 93010; J0131; J0330; J1170; J1335; J1610; J1650; J1885; J2060; J2250; J2270; J2405; J2704; J3010; J3480; J3490; J7030; S0028

== ENCOUNTER 2018-09-29 09:58 | Inpatient (IN) | payer SELFPAY ==
--- NOTE | 2018-09-29 10:58 | RADIOLOGY REPORT (SQ) ---
EXAM DESCRIPTION: CHEST SINGLE VIEW COMPLETED DATE/TIME: 09/29/2018 10:47 am REASON FOR STUDY: shortness of breath, lower extremity swelling COMPARISON: None. EXAM PARAMETERS: NUMBER OF VIEWS: One view. TECHNIQUE: Single frontal radiographic view of the chest acquired. RADIATION DOSE: NA LIMITATIONS: None. FINDINGS: LUNGS AND PLEURA: No opacities, masses or pneumothorax. No pleural effusion. MEDIASTINUM AND HILAR STRUCTURES: No masses. Contour normal. HEART AND VASCULAR STRUCTURES: Heart normal in size. Normal vasculature. BONES: No acute findings. HARDWARE: Vascular port. OTHER: No other significant finding. IMPRESSION: NO ACUTE RADIOGRAPHIC FINDING IN THE CHEST. TECHNICAL DOCUMENTATION: JOB ID: [id number] [employer]- All Rights Reserved Reading location - IP/workstation name: [email or web address]
[2018-09-29 11:20] LABS: HEMATOCRIT 24.6 % (37.9-51.0); MEAN CORPUSCULAR HEMOGLOBIN 29.4 pg (27.0-33.4); MEAN CORPUSCULAR HGB CONC 31.4 g/dL (32.0-36.0); MEAN CORPUSCULAR VOLUME 94 fl (80-97); PLATELET COUNT 228 10^3/uL (150-450); RED BLOOD COUNT 2.63 10^6/uL (4.35-5.55); RED CELL DISTRIBUTION WIDTH 21.9 % (11.5-14.0); WHITE BLOOD COUNT 8.9 10^3/uL (4.0-10.5)
[2018-09-29 11:33] LABS: ALANINE AMINOTRANSFERASE 22 U/L (21-72); ALBUMIN 2.7 g/dL (3.5-5.0); ALKALINE PHOSPHATASE 335 U/L (38-126); ANION GAP 15 (5-19); ASPARTATE AMINO TRANSFERASE 125 U/L (17-59); BILIRUBIN,DIRECT 1.1 mg/dL (0.0-0.4); BILIRUBIN,TOTAL 1.7 mg/dL (0.2-1.3); BLOOD UREA NITROGEN 13 mg/dL (7-20); CALCIUM 8.3 mg/dL (8.4-10.2); CARBON DIOXIDE 21 mmol/L (22-30); CHLORIDE 100 mmol/L (98-107); GLUCOSE 110 mg/dL (75-110); POTASSIUM 3.6 mmol/L (3.6-5.0); SODIUM 136.1 mmol/L (137-145); TOTAL PROTEIN 6.2 g/dL (6.3-8.2)
[2018-09-29] MEDS ORDERED: FUROSEMIDE INJ/PF 20 MG/2 ML SDV IV ONE ×2 (12:02→16:44)
--- NOTE | 2018-09-29 12:02 | ER Document Report ---
Addendum entered and electronically signed by MARINA DIXON PA-C 09/29/18 16:08: Discharge - Discharge Clinical Impression: Weakness CHF (congestive heart failure) Qualifiers: Heart failure type: unspecified Heart failure chronicity: acute Qualified Code(s): I50.9 - Heart failure, unspecified Anemia Qualifiers: Anemia type: unspecified type Qualified Code(s): D64.9 - Anemia, unspecified Condition: Stable Disposition: ADMITTED INPATIENT Admitting Provider: Jeanine (Hospitalist) Unit Admitted: Medical Floor Original Note: ED General - General Chief Complaint: Shortness Of Breath Stated Complaint: SWOLLEN FEET Time Seen by Provider: 09/29/18 11:40 Notes: Cachectic pekid appearing 58-year-old male with history of colon cancer removed in March 2017 presents to the emergency department for shortness of breath over the last couple of days. He is also complaining of dependent edema. He states that he has been very fatigued and cannot ambulate as far as he usually does. He has been sleeping poorly. He denies any fevers or recent illness. States he has had a dry cough. Significant other states that he has spells for several months leading up to today. Denies any dizziness or lightheadedness, chest pain, nausea or vomiting, complains of polyuria. TRAVEL OUTSIDE OF THE [place] IN LAST 30 DAYS: No - Related Data Allergies/Adverse Reactions: acetaminophen Allergy (Verified 09/29/18 10:00) codeine Adverse Reaction (Verified 03/27/17 08:46) Generalized rash Past Medical History - Social History Smoking Status: Former Smoker Family History: CAD Patient has suicidal ideation: No Patient has homicidal ideation: No - Past Medical History Cardiac Medical History: Denies: Hx Coronary Artery Disease, Hx Heart Attack, Hx Hypertension Pulmonary Medical History: Denies: Hx Asthma, Hx Bronchitis, Hx COPD, Hx Pneumonia Neurological Medical History: Denies: Hx Cerebrovascular Accident, Hx Seizures Renal/ Medical History: Denies: Hx Peritoneal Dialysis Malignancy Medical History: Reports Hx Colorectal Cancer GI Medical History: Denies: Hx Crohn's Disease, Hx Gastroesophageal Reflux Disease, Hx Hiatal Hernia, Hx Irritable Bowel, Hx Liver Failure, Hx Jimenez creatitis, Hx Ulcer Musculoskeletal Medical History: Denies Hx Arthritis Past Surgical History: Reports: Hx Appendectomy - 1970, Hx Vascular Surgery - Port placement. Denies: Hx Bowel Surgery, Hx Cholecystectomy, Hx Colostomy, Hx Coronary Artery Bypass Graft, Hx Gastric Bypass Surgery, Hx Herniorrhaphy, Hx Pacemaker, Hx Tonsillectomy - Immunizations Hx Diphtheria, Pertussis, Tetanus Vaccination: Yes Review of Systems - Review of Systems Constitutional: See HPI EENT: No symptoms reported Cardiovascular: See HPI Respiratory: See HPI Gastrointestinal: See HPI Genitourinary: See HPI Male Genitourinary: No symptoms reported Musculoskeletal: No symptoms reported Skin: No symptoms reported Hematologic/Lymphatic: No symptoms reported Neurological/Psychological: No symptoms reported Physical Exam - Vital signs Vitals: Temp Pulse Resp BP Pulse Ox 97.5 F 104 H 20 134/89 H 100 09/29/18 10:05 09/29/18 10:05 09/29/18 10:05 09/29/18 10:05 09/29/18 10:05 - Notes Notes: PHYSICAL EXAMINATION: Reviewed vital signs and charting by RN GENERAL: Alert, cachectic, interacts well. No acute distress. HEAD: Normocephalic, atraumatic. EYES: Pupils equal and round. Extraocular movements intact. ENT: Oral mucosa moist, tongue midline. NECK: Full range of motion. Supple. Trachea midline. LUNGS: Clear to auscultation bilaterally, no wheezes, rales, or rhonchi. No resp iratory distress. HEART: Regular rate and rhythm. No murmur, 2+ bilateral lower extremity pitting edema ABDOMEN: soft, some right lower quadrant tenderness that is pre-existing from surgery.. Non-distended. Bowel sounds present. no McBurney's point tenderness, no Castañeda sign. EXTREMITIES: Moves all 4 extremities spontaneously. No cyanosis. Normal distal neurovascular exam BACK: No CVAT NEUROLOGIC: Oriented and appropriate. Normal speech. PSYCH: Normal affect, normal mood. SKIN: Warm, dry, normal turgor. No rashes or lesions noted. Course - Re-evaluation Re-evalutation: 09/29/18 12:02 Overall impression patient is cachectic and most likely having a mild CHF exacerbation. proBNP was 4930. We will give Lasix 20 mg IV 1 time. 09/29/18 12:20 Hemoglobin called back at 7.7, patient does look emaciated well. He did have a tender abdomen during exam so I will order a CT abdomen pelvis with IV contrast. 09/29/18 15:46 The abdomen was very concerning for possible metastatic cancer to the liver. Patient is acutely weak. He did respond to the Lasix 20 mg IV. I called Serina Dean NP hospitalist who accepted the patient for admission to the medical floor - Vital Signs Vital signs: Temp Pulse Resp BP Pulse Ox 97.5 F 104 H 17 118/74 100 09/29/18 10:05 09/29/18 10:05 09/29/18 12:34 09/29/18 12:34 09/29/18 12:34 - Laboratory Result Diagrams: 09/29/18 10:43 09/29/18 10:43 Laboratory results interpreted by me: 09/29/18 09/29/18 09/29/18 10:43 10:43 10:43 RBC 2.63 L Hgb 7.7 L Hct 24.6 L MCHC 31.4 L RDW 21.9 H Seg Neuts % (Manual) 80 H Band Neutrophils % 2 L Monocytes % (Manual) 1 L Metamyelocytes % 1 H Sodium 136.1 L Carbon Dioxide 21 L Calcium 8.3 L Total Bilirubin 1.7 H Direct Bilirubin 1.1 H AST 125 H Alkaline Phosphatase 335 H NT-Pro-B Natriuret Pep 4930 H Total Protein 6.2 L Albumin 2.7 L Discharge - Discharge Clinical Impression: Weakness CHF (congestive heart failure) Qualifiers: Heart failure type: unspecified Heart failure chronicity: acute Qualified Code(s): I50.9 - Heart failure, unspecified Anemia Qualifiers: Anemia type: unspecified type Qualified Code(s): D64.9 - Anemia, unspecified Condition: Stable Disposition: ADMITTED INPATIENT Admitting Provider: Jermaine Unit Admitted: Medical Floor
[2018-09-29 12:15] LABS: HEMOGLOBIN 7.7 g/dL (13.5-17.0)
[2018-09-29 12:16] LABS: ABSOLUTE LYMPHOCYTES# (MANUAL) 1.3 10^3/uL (0.5-4.7); ABSOLUTE MONOCYTES # (MANUAL) 0.1 10^3/uL (0.1-1.4); ABSOLUTE NEUTROPHILS# (MANUAL) 7.4 10^3/uL (1.7-8.2); ANISOCYTOSIS 3+; BAND NEUTROPHILS % (MANUAL) 2 % (3-5); BASOPHILS % (MANUAL) 1 % (0-2); EOSINOPHILS % (MANUAL) 0 % (0-6); LYMPHOCYTES % (MANUAL) 15 % (13-45); METAMYELOCYTES % (MANUAL) 1 % (0); MONOCYTES % (MANUAL) 1 % (3-13); POIKILOCYTOSIS 1+; SEGMENTED NEUTROPHILS % (MAN) 80 % (42-78); TOXIC GRANULATION SLIGHT
[2018-09-29 12:17] LABS: OVALOCYTES 1+; PLATELET COMMENT ADEQUATE
[2018-09-29 12:18] LABS: TOTAL CELLS COUNTED 100
--- NOTE | 2018-09-29 13:42 | RADIOLOGY REPORT (SQ) ---
EXAM DESCRIPTION: CT ABD/PELVIS WITH IV ONLY COMPLETED DATE/TIME: 09/29/2018 1:11 pm REASON FOR STUDY: distension, anemia COMPARISON: 04/10/2017 TECHNIQUE: CT scan of the abdomen and pelvis performed using helical scanning technique with dynamic intravenous contrast injection. No oral contrast. Images reviewed with lung, soft tissue, and bone windows. Reconstructed coronal and sagittal MPR images reviewed. Delayed images for evaluation of the urinary system also acquired. All images stored on PACS. All CT scanners at this facility use dose modulation, iterative reconstruction, and/or weight based d osing when appropriate to reduce radiation dose to as low as reasonably achievable (ALARA). [facility]: Dose Right [facility]: CareDose [facility]: Dose Right [facility]: Teradose 4D [facility]: ZipZap CONTRAST TYPE AND DOSE: contrast/concentration: Isovue 350.00 mg/ml; Total Contrast Delivered: 97.0 ml; Total Saline Delivered: 72.0 ml RENAL FUNCTION: GFR > 60. RADIATION DOSE: CT Rad equipment meets quality standard of care and radiation dose reduction techniq ues were employed. CTDIvol: 6.9 - 9.8 mGy. DLP: 1038 mGy-cm.. LIMITATIONS: None. FINDINGS: LOWER CHEST: Coronary artery calcifications. No nodules or infiltrates. LIVER: Multiple extremely bulky hypoenhancing masses of the right lobe of the liver. The left lobe i s relatively spared. SPLEEN: Normal size. No focal lesions. PANCREAS: No masses. No significant calcifications. No adjacent inflammation or peripancreatic fluid collections. Pancreatic duct not dilated. GALLBLADDER: No identified stones by CT criteria. No inflammatory changes to suggest cholecystitis. ADRENAL GLANDS: No significant masses or asymmetry. RIGHT KIDNEY AND URETER: No solid masses. No significant calcifications. No hydronephrosis or hyd roureter. LEFT KIDNEY AND URETER: No solid masses. No significant calcifications. No hydronephrosis or hydr oureter. AORTA AND VESSELS: No aneurysm. No dissection. Renal arteries, SMA, celiac without stenosis. RETROPERITONEUM: No retroperitoneal adenopathy, hemorrhage or masses. BOWEL AND PERITONEAL CAVITY: No masses or inflammatory changes. Small volume ascites. APPENDIX: Normal. PELVIS: No mass. Dependent ascites in the pelvis. Normal bladder. ABDOMINAL WALL: No masses. No hernias. BONES: No significant or acute findings. OTHER: No other significant finding. IMPRESSION: Multiple extremely bulky masses of the right lobe of the liver, with relative sparing of the left lobe. There is no other obvious primary malignancy in the abdomen, suggesting HCC or chola ngiocarcinoma. Small volume associated ascites. TECHNICAL DOCUMENTATION: JOB ID: [id number] Quality ID # [id number]: Final reports with documentation of one or more dose reduction techniques (e.g., Au tomated exposure control, adjustment of the mA and/or kV according to patient size, use of iterative reconstruction technique) 2010 [employer]- All Rights Reserved Reading location - IP/workstation name: [email or web address]
[2018-09-29] MEDS ORDERED: ZOLPIDEM TARTRATE 5 MG TABLET PO PRN (15:48)
[2018-09-29] MEDS ORDERED: ACETAMINOPHEN 325 MG TABLET PO PRN (15:48)
[2018-09-29] MEDS ORDERED: MAGNESIUM HYDROXIDE SUSP 30 ML UDCUP PO PRN (15:48)
[2018-09-29] MEDS ORDERED: ONDANSETRON HCL INJ/PF 4 MG/2 ML SDV IV PRN (15:48)
--- NOTE | 2018-09-29 16:10 | EKG REPORT ---
SEVERITY:- ABNORMAL ECG - JUNCTIONAL RHYTHM FIRST DEGREE AV BLOCK NONSPECIFIC INTRAVENTRICULAR CONDUCTION DELAY : Confirmed by: Zuhair Cuadra MD 29-Sep-2018 16:09:29
[2018-09-29] MEDS ORDERED: NORMAL SALINE 250 ML IV PRN ×2 (16:43)
[2018-09-29 17:01] LABS: INTERNATIONAL RATION (INR) 1.26; PROTHROMBIN TIME 16.4 SEC (11.4-15.4)
[2018-09-29 17:02] LABS: PARTIAL THROMBOPLASTIN TIME 46.3 SEC (23.5-35.8)
--- NOTE | 2018-09-29 18:50 | PDOC H&P ---
History of Present Illness Admission Date/PCP: 09/29/18 16:01 Patient complains of: Weakness and shortness of breath with exertion History of Present Illness: DAMASO CHARLES is a 58 year old male with past medical history of colon cancer resected in 2016; who presents to [facility]'s emergency room this afternoon with complaints of increasing weakness, weight loss, lower extremity edema and shortness of breath with exertion. He states his symptoms have been progressive over the last several months. He estimates he has lost approximately 40 pounds despite normal appetite. He has no primary care provider. He takes no routine medicines. He has had some mild pedal and ankle edema for the last month. He denies any shortness of breath at rest. He denies any orthopnea. He has no history of congestive heart failure or COPD. He states he was a smoker up until March when he quit. He has a [id number] history of tobacco. He was found to be anemic with hemoglobin of 7.7. He denies any change in stools. He denies any diarrhea or constipation. He underwent CT of the abdomen and pelvis which showed multiple bulky lesions in his liver. He was referred to the hospitalist service for admission. Past Medical History Cardiac Medical History: Denies: Coronary Artery Disease, Myocardial Infarction, Hypertension Pulmonary Medical History: Denies: Asthma, Bronchitis, Chronic Obstructive Pulmonary Disease (COPD), Pneumonia Neurological Medical History: Reports: None Denies: Seizures Endocrine Medical History: Reports: None Renal/ Medical History: Reports: None Malignancy Medical History: Reports: Colorectal Cancer GI Medical History: Reports: None Denies: Crohn's Disease, Gastroesophageal Reflux Disease, Hiatal Hernia Musculoskeltal Medical History: Denies: Arthritis Skin Medical History: Reports: None Psychiatric Medical History: Reports: None, Other - Prior smoker and now times heavy alcohol intake. Traumatic Medical History: Reports: None Hematology: Reports: None Denies: Anemia Infectious Medical History: Reports: None Past Surgical History Past Surgical History: Reports: Appendectomy - 1971, Other - Colon resection Denies: Cholecystectomy, Colostomy, Coronary Artery Bypass Graft, Gastric Bypass Surgery, Herniorrhaphy, Pacemaker, Tonsillectomy Social History Information Source: Patient Lives with: Spouse/Significant other Smoking Status: Former Smoker Cigarettes Packs Per Day: 40 Frequency of Alcohol Use: None - Prior heavy alcohol use. He is quit over a year ago Hx Recreational Drug Use: No Hx Prescription Drug Abuse: No - Advance Directive Resuscitation Status: Full Code Surrogate healthcare decision maker:: Nisa Charles if he is unable to make decisions Family History Family History: Malignancy - Father from colon cancer Parental Family History Reviewed: Yes - Mother alive and well at 82 Children Family History Reviewed: Yes Sibling(s) Family History Reviewed.: Yes Medication/Allergy Home Medications: Ibuprofen 200 mg PO PRN PRN 12/25/16 Multivit-Min36/Iron/Folic Acid [Geritol Complete Tablet] 1 each PO DAILY 03/27/17 Sennosides/Docusate Sodium [Stool Softener-Stim Lax Tablet] 1 each PO BID 03/27/17 Losartan Potassium [Cozaar 50 mg Tablet] 50 mg PO Q12 #60 tablet 04/11/17 Allergies/Adverse Reactions: acetaminophen Allergy (Verified 09/29/18 10:00) codeine Adverse Reaction (Verified 03/27/17 08:46) Generalized rash Review of Systems Constitutional: PRESENT: fatigue, weakness, weight loss Eyes: ABSENT: visual disturbances Ears: ABSENT: hearing changes Cardiovascular: PRESENT: dyspnea on exertion. ABSENT: chest pain, edema, orthropnea, palpitations Respiratory: ABSENT: cough, hemoptysis Gastrointestinal: ABSENT: abdominal pain, constipation, diarrhea, hematemesis, hematochezia, nausea, vomiting Genitourinary: ABSENT: dysuria, hematuria Musculoskeletal: ABSENT: joint swelling Integumentary: ABSENT: rash, wounds Neurological: PRESENT: weakness Psychiatric: ABSENT: anxiety, depression, homidical ideation, suicidal ideation Endocrine: ABSENT: cold intolerance, heat intolerance, polydipsia, polyuria Hematologic/Lymphatic: ABSENT: easy bleeding, easy bruising Physical Exam Vital Signs: Temp Pulse Resp BP Pulse Ox 97.5 F 104 H 17 118/74 100 09/29/18 10:05 09/29/18 10:05 09/29/18 12:34 09/29/18 12:34 09/29/18 12:34 Intake & Output 09/28/18 09/29/18 09/30/18 06:59 06:59 06:59 Weight 85 kg General appearance: PRESENT: no acute distress, thin, well-developed, other - pale Head exam: PRESENT: atraumatic, normocephalic Eye exam: PRESENT: conjunctiva pale Ear exam: PRESENT: normal external ear exam Mouth exam: PRESENT: moist, tongue midline Neck exam: ABSENT: carotid bruit, JVD, lymphadenopathy, thyromegaly Respiratory exam: PRESENT: clear to auscultation andria, symmetrical, unlabored Cardiovascular exam: PRESENT: RRR. ABSENT: diastolic murmur, rubs, systolic murmur Pulses: PRESENT: normal carotid pulses, normal radial pulses, normal dorsalis pedis pul Vascular exam: PRESENT: normal capillary refill GI/Abdominal exam: PRESENT: normal bowel sounds, soft. ABSENT: distended, guarding, mass, organolmegaly, rebound, tenderness Rectal exam: PRESENT: heme (-) stool Extremities exam: PRESENT: full ROM, +2 edema - bilateral pedal to pretibial. ABSENT: calf tenderness, clubbing, pedal edema Musculoskeletal exam: PRESENT: ambulatory, full ROM, normal inspection Neurological exam: PRESENT: alert, awake, oriented to person, oriented to place, oriented to time, oriented to situation, CN II-XII grossly intact. ABSENT: motor sensory deficit Psychiatric exam: PRESENT: appropriate affect, normal mood. ABSENT: homicidal ideation, suicidal ideation Skin exam: PRESENT: dry, intact, warm. ABSENT: cyanosis, rash Results Laboratory Results: 09/29/18 10:43 09/29/18 10:43 09/29/18 09/29/18 09/29/18 10:43 10:43 12:34 WBC 8.9 RBC 2.63 L Hgb 7.7 L Hct 24.6 L MCV 94 MCH 29.4 MCHC 31.4 L RDW 21.9 H Plt Count 228 Seg Neutrophils % Not Reportable Lymphocytes % Not Reportable Monocytes % Not Reportable Eosinophils % Not Reportable Basophils % Not Reportable Absolute Neutrophils Not Reportable Absolute Lymphocytes Not Reportable Absolute Monocytes Not Reportable Absolute Eosinophils Not Reportable Absolute Basophils Not Reportable Sodium 136.1 L Potassium 3.6 Chloride 100 Carbon Dioxide 21 L Anion Gap 15 BUN 13 Creatinine 0.63 Est GFR ( Amer) > 60 Est GFR (Non-Af Amer) > 60 Glucose 110 Calcium 8.3 L Total Bilirubin 1.7 H AST 125 H ALT 22 Alkaline Phosphatase 335 H Total Protein 6.2 L Albumin 2.7 L Blood Type O NEGATIVE Antibody Screen NEGATIVE 09/29/18 10:43 NT-Pro-B Natriuret Pep 4930 H Impressions: Chest X-Ray 09/29/18 10:36 IMPRESSION: NO ACUTE RADIOGRAPHIC FINDING IN THE CHEST. Abdomen/Pelvis CT 09/29/18 12:19 IMPRESSION: Multiple extremely bulky masses of the right lobe of the liver, with relative sparing of the left lobe. There is no other obvious primary malignancy in the abdomen, suggesting HCC or cholangiocarcinoma. Small volume associated ascites. Assessment and Plan - Diagnosis (1) Anemia Qualifiers: Anemia type: unspecified type Qualified Code(s): D64.9 - Anemia, unspecified Is this a current diagnosis for this admission?: Yes Plan: We will transfuse 1 unit packed red blood cells with 20 mg of Lasix afterwards. We will check anemia profile in the a.m. Rectal exam showed heme-negative stool. He denies any change in bowel habits or dark stools. (2) Weakness Is this a current diagnosis for this admission?: Yes Plan: Likely secondary to anemia and underlying malignancy. He has had an over 40 pound, unintentional, weight loss the last several months. CT the abdomen and pelvis shows bulky lesions in the right lobe of the liver. These likely are metastatic colon cancer. At the time of his colon resection in 2016 he had T3 N1 adenocarcinoma. He was supposed to follow-up with Dr. Bee and Dr. Haile for post adjuvant treatment. We have consulted Dr. Atwood, oncologist. It was discussed with her over the phone. She will see the patient tomorrow. Will order CEA. (3) Elevated brain natriuretic peptide (BNP) level Is this a current diagnosis for this admission?: Yes Plan: BNP was elevated at 4930. Chest x-ray is completely clear. He has no cardiomegaly. We will repeat this in the a.m. He did receive 20 mg of Lasix in the ER without much diuresis. Likely his lower extremity edema is due to anemia and low protein state. Will repeat BNP in am if still elevated will order echo at that time. He does have long history of tobacco use (4) Colon cancer Qualifiers: Colon location: unspecified part of colon Qualified Code(s): C18.9 - Malignant neoplasm of colon, unspecified Is this a current diagnosis for this admission?: Yes Plan: Patient underwent resection March [address] Hu. Pathology was adenocarc inoma T3 N1 M0 disease. He likely has stage IV colon cancer now with possible bulky lesions in the right lobe of his liver. This was discussed with the patient as well. We will order CEA and oncology consult with Dr. Atwood. (5) Elevated bilirubin Is this a current diagnosis for this admission?: Yes Plan: Likely due to bulky liver metastasis (6) Transaminitis Is this a current diagnosis for this admission?: Yes Plan: AST 125 bulky liver mets. (7) Elevated CEA Is this a current diagnosis for this admission?: Yes Plan: CEA markedly elevated at 818, - Time Time Spent with patient: 35 or more minutes Total Critical Time (Minutes): 40 Medications reviewed and adjusted accordingly: Yes Within: within 48 hours - Inpatient Certification Based on my medical assessment, after consideration of the patient's comorbidities, presenting symptoms, or acuity I expect that the services needed warrant INPATIENT care.: Yes I certify that my determination is in accordance with my understanding of Medicare's requirements for reasonable and necessary INPATIENT services [42 CFR 412.3e].: Yes Medical Necessity: Significant Comorbidiites Make Outpatient Treatment Too Risky, Risk of Complication if Not Cared For in Hospital
[2018-09-29] MEDS: PANTOPRAZOLE SODIUM 40 MG TABLET.DR PO SCH (19:44)
[2018-09-29] MEDS: DOCUSATE SODIUM 100 MG CAPSULE PO SCH (19:44)
[2018-09-29] MEDS: MELATONIN 5 MG TABLET PO SCH (21:17)
[2018-09-29] MEDS: HEPARIN SOD (PORCINE) 5,000 UNIT/ML 1 ML SYRINGE SUBCUT SCH (21:17)
[2018-09-29] MEDS ORDERED: FUROSEMIDE INJ/PF 20 MG/2 ML SDV ONE (23:24)
[2018-09-30 00:53] LABS: HEMATOCRIT 22.4 % (37.9-51.0); MEAN CORPUSCULAR HEMOGLOBIN 29.5 pg (27.0-33.4); MEAN CORPUSCULAR HGB CONC 32.5 g/dL (32.0-36.0); MEAN CORPUSCULAR VOLUME 91 fl (80-97); PLATELET COUNT 186 10^3/uL (150-450); RED BLOOD COUNT 2.46 10^6/uL (4.35-5.55); RED CELL DISTRIBUTION WIDTH 21.1 % (11.5-14.0); WHITE BLOOD COUNT 6.7 10^3/uL (4.0-10.5)
[2018-09-30 00:59] LABS: HEMOGLOBIN 7.3 g/dL (13.5-17.0)
[2018-09-30 03:27] LABS: HEMATOCRIT 22.5 % (37.9-51.0); MEAN CORPUSCULAR HEMOGLOBIN 29.6 pg (27.0-33.4); MEAN CORPUSCULAR HGB CONC 32.4 g/dL (32.0-36.0); MEAN CORPUSCULAR VOLUME 91 fl (80-97); PLATELET COUNT 185 10^3/uL (150-450); RED BLOOD COUNT 2.46 10^6/uL (4.35-5.55); RED CELL DISTRIBUTION WIDTH 20.3 % (11.5-14.0); WHITE BLOOD COUNT 6.5 10^3/uL (4.0-10.5)
[2018-09-30 03:30] LABS: HEMOGLOBIN 7.3 g/dL (13.5-17.0)
[2018-09-30] MEDS: HEPARIN SOD (PORCINE) 5,000 UNIT/ML 1 ML SYRINGE SUBCUT SCH ×3 (05:17→23:21)
[2018-09-30 05:21] LABS: INTERNATIONAL RATION (INR) 1.26; PROTHROMBIN TIME 16.4 SEC (11.4-15.4)
[2018-09-30 05:31] LABS: ALANINE AMINOTRANSFERASE 24 U/L (21-72); ALBUMIN 2.2 g/dL (3.5-5.0); ALKALINE PHOSPHATASE 334 U/L (38-126); ASPARTATE AMINO TRANSFERASE 102 U/L (17-59); BILIRUBIN,DIRECT 1.1 mg/dL (0.0-0.4); BILIRUBIN,TOTAL 1.8 mg/dL (0.2-1.3); TOTAL PROTEIN 5.1 g/dL (6.3-8.2)
[2018-09-30] MEDS: PANTOPRAZOLE SODIUM 40 MG TABLET.DR PO SCH ×2 (05:40→16:39)
[2018-09-30 06:55] LABS: ABSOLUTE RETICS # 0.049 10^6/uL (0.028-0.122); HEMATOCRIT 22.7 % (37.9-51.0); MEAN CORPUSCULAR HEMOGLOBIN 29.3 pg (27.0-33.4); MEAN CORPUSCULAR HGB CONC 32.3 g/dL (32.0-36.0); MEAN CORPUSCULAR VOLUME 91 fl (80-97); PLATELET COUNT 194 10^3/uL (150-450); RED BLOOD COUNT 2.51 10^6/uL (4.35-5.55); RED CELL DISTRIBUTION WIDTH 21.2 % (11.5-14.0); RETICULOCYTE COUNT (AUTO) 1.94 % (0.66-2.85); WHITE BLOOD COUNT 6.1 10^3/uL (4.0-10.5)
[2018-09-30 07:01] LABS: HEMOGLOBIN 7.3 g/dL (13.5-17.0)
[2018-09-30 07:13] LABS: NT PRO BNP 3570 pg/mL (5-900); TROPONIN I < 0.012 ng/mL
[2018-09-30 07:20] LABS: ABSOLUTE LYMPHOCYTES# (MANUAL) 0.4 10^3/uL (0.5-4.7); ABSOLUTE MONOCYTES # (MANUAL) 0.3 10^3/uL (0.1-1.4); ABSOLUTE NEUTROPHILS# (MANUAL) 5.4 10^3/uL (1.7-8.2); BASOPHILS % (MANUAL) 0 % (0-2); EOSINOPHILS % (MANUAL) 0 % (0-6); LYMPHOCYTES % (MANUAL) 6 % (13-45); MONOCYTES % (MANUAL) 5 % (3-13); SEGMENTED NEUTROPHILS % (MAN) 89 % (42-78); TOTAL CELLS COUNTED 100
[2018-09-30 07:21] LABS: IRON(TIBC) 19.8 ug/dL (49-181); PLATELET COMMENT ADEQUATE
[2018-09-30 07:23] LABS: HYPOCHROMASIA SLIGHT; POIKILOCYTOSIS SLIGHT
[2018-09-30 07:24] LABS: ANISOCYTOSIS 2+
[2018-09-30 08:28] LABS: FOLATE 6.33 ng/mL (>2.76)
--- NOTE | 2018-09-30 08:28 | PDOC CONSULTATION ---
Consultation Consult Date: 09/30/18 Consult reason:: Hematology/Oncology consultation was requested for patient with colorectal cancer. History of Present Illness Admission Date/PCP: 09/29/18 16:01 History of Present Illness: DAMASO HICKS is a 58 year old male who was originally diagnosed with Stage III rectal cancer in November of 2016. He underwent concurrent randolph-adjuvant 5-FU and radiation and then underwent colon resection on 04/03/2017. Although plans were to continue with FOLFOX chemotherapy, patient was lost to follow-up after his surgery. He states that he has not insurance and has no PCP. He was doing well until about 5 days ago when his feet began swelling and he was having more fatigue and dyspnea on exertion. He presented to the ED and was found to have HGB 7.7. CT abdomen showed multiple metastatic appearing lesions in the liver. Patient denies any bowel changes or blood in stool. Today, he states that he can see his feet again, after medication to help with the swelling. He is feeling a bit better but HGB still dropped after blood transfusion. Past Medical History Cardiac Medical History: Denies: Coronary Artery Disease, Myocardial Infarction, Hypertension Pulmonary Medical History: Denies: Asthma, Bronchitis, Chronic Obstructive Pulmonary Disease (COPD), Pneumonia Neurological Medical History: Reports: None Denies: Seizures Endocrine Medical History: Reports: None Renal/ Medical History: Reports: None Malignancy Medical History: Reports: Colorectal Cancer GI Medical History: Reports: None Denies: Crohn's Disease, Gastroesophageal Reflux Disease, Hiatal Hernia Musculoskeltal Medical History: Denies: Arthritis Skin Medical History: Reports: None Psychiatric Medical History: Reports: None, Other - Prior smoker and now times heavy alcohol intake. Traumatic Medical History: Reports: None Hematology: Reports: None Denies: Anemia Infectious Medical History: Reports: None Past Surgical History Past Surgical History: Reports: Appendectomy - 1971, Vascular Surgery - Port placement, Other - Colon resection Denies: Cholecystectomy, Colostomy, Coronary Artery Bypass Graft, Gastric By pass Surgery, Herniorrhaphy, Pacemaker, Tonsillectomy Social History Lives with: Spouse/Significant other Smoking Status: Former Smoker Cigarettes Packs Per Day: 2 Number of Years Smokin Last Time Smoked: 4 MONTHS AGO, Jun Frequency of Alcohol Use: None - Prior heavy alcohol use. He is quit over a year ago Last Alcohol Use: 05/22/18 - Was a heavy drinker prior to 4 months ago. Hx Recreational Drug Use: No Hx Prescription Drug Abuse: No - Advance Directive Resuscitation Status: Full Code Family History Family History: Malignancy - Father from colon cancer Parental Family History Reviewed: Yes - Father with colon cancer. Mother alive and well. Children Family History Reviewed: Yes Sibling(s) Family History Reviewed.: Yes Medication/Allergy Home Medications: Ibuprofen 200 mg PO PRN PRN 12/25/16 Multivit-Min36/Iron/Folic Acid [Geritol Complete Tablet] 1 each PO DAILY 03/27/17 Sennosides/Docusate Sodium [Stool Softener-Stim Lax Tablet] 1 each PO BID 03/27/17 Losartan Potassium [Cozaar 50 mg Tablet] 50 mg PO Q12 #60 tablet 04/11/17 Allergies/Adverse Reactions: acetaminophen Allergy (Verified 09/29/18 10:00) diphenhydramine [From Aleve PM] Adverse Reaction (Unknown, Verified 09/29/18 19:38) DIAPHORESIS naproxen [From Aleve PM] Adverse Reaction (Unknown, Verified 09/29/18 19:38) DIAPHORESIS codeine Adverse Reaction (Verified 03/27/17 08:46) Generalized rash Review of Systems Constitutional: ABSENT: fever(s), headache(s) Eyes: ABSENT: visual disturbances Ears: ABSENT: hearing changes Nose, Mouth, and Throat: ABSENT: sore throat Cardiovascular: ABSENT: chest pain Respiratory: PRESENT: dyspnea Gastrointestinal: ABSENT: constipation, diarrhea, nausea Genitourinary: ABSENT: dysuria Integumentary: ABSENT: rash Neurological: PRESENT: weakness Psychiatric: ABSENT: depression Hematologic/Lymphatic: ABSENT: lymphadenopathy Physical Exam Vital Signs: Temp Pulse Resp BP Pulse Ox 97.8 F 71 17 100/68 100 09/29/18 23:19 09/30/18 02:00 09/29/18 23:19 09/29/18 23:19 09/29/18 23:19 Intake & Output 09/29/18 09/30/18 10/01/18 06:59 06:59 06:59 Intake Total 300 Output Total 650 Balance -350 Weight 83.9 kg General appearance: PRESENT: well-developed, well-nourished Exam: 58 year old male. Head exam: PRESENT: normocephalic Eye exam: PRESENT: EOMI Mouth exam: PRESENT: tongue midline Neck exam: ABSENT: lymphadenopathy, tenderness Respiratory exam: PRESENT: clear to auscultation andria, unlabored Cardiovascular exam: PRESENT: RRR GI/Abdominal exam: PRESENT: organolmegaly - Liver is 8 cm below the costal margin., soft. ABSENT: tenderness Rectal exam: PRESENT: deferred Extremities exam: PRESENT: +2 edema Neurological exam: PRESENT: alert, awake Psychiatric exam: PRESENT: appropriate affect Focused psych exam: ABSENT: restlessness Skin exam: PRESENT: normal color Results Laboratory Results: 09/30/18 06:40 09/29/18 10:43 09/29/18 09/29/18 09/29/18 10:43 10:43 12:34 WBC 8.9 RBC 2.63 L Hgb 7.7 L Hct 24.6 L MCV 94 MCH 29.4 MCHC 31.4 L RDW 21.9 H Plt Count 228 Seg Neutrophils % Not Reportable Lymphocytes % Not Reportable Monocytes % Not Reportable Eosinophils % Not Reportable Basophils % Not Reportable Absolute Neutrophils Not Reportable Absolute Lymphocytes Not Reportable Absolute Monocytes Not Reportable Absolute Eosinophils Not Reportable Absolute Basophils Not Reportable Retic Count (auto) Absolute Retic Sodium 136.1 L Potassium 3.6 Chloride 100 Carbon Dioxide 21 L Anion Gap 15 BUN 13 Creatinine 0.63 Est GFR ( Amer) > 60 Est GFR (Non-Af Amer) > 60 Glucose 110 Calcium 8.3 L Total Bilirubin 1.7 H AST 125 H ALT 22 Alkaline Phosphatase 335 H Total Protein 6.2 L Albumin 2.7 L Blood Type O NEGATIVE Antibody Screen NEGATIVE 09/30/18 09/30/18 09/30/18 00:45 03:05 03:52 WBC 6.7 6.5 RBC 2.46 L 2.46 L Hgb 7.3 L 7.3 L Hct 22.4 L 22.5 L MCV 91 91 MCH 29.5 29.6 MCHC 32.5 32.4 RDW 21.1 H 20.3 H Plt Count 186 185 Seg Neutrophils % Lymphocytes % Monocytes % Eosinophils % Basophils % Absolute Neutrophils Absolute Lymphocytes Absolute Monocytes Absolute Eosinophils Absolute Basophils Retic Count (auto) Absolute Retic Sodium Potassium Chloride Carbon Dioxide Anion Gap BUN Creatinine Est GFR ( Amer) Est GFR (Non-Af Amer) Glucose Calcium Total Bilirubin 1.8 H AST 102 H ALT 24 Alkaline Phosphatase 334 H Total Protein 5.1 L Albumin 2.2 L Blood Type Antibody Screen 09/30/18 09/30/18 03:52 06:40 WBC 6.1 RBC 2.51 L Hgb 7.3 L Hct 22.7 L MCV 91 MCH 29.3 MCHC 32.3 RDW 21.2 H Plt Count 194 Seg Neutrophils % Not Reportable Lymphocytes % Not Reportable Monocytes % Not Reportable Eosinophils % Not Reportable Basophils % Not Reportable Absolute Neutrophils Not Reportable Absolute Lymphocytes Not Reportable Absolute Monocytes Not Reportable Absolute Eosinophils Not Reportable Absolute Basophils Not Reportable Retic Count (auto) 1.94 Absolute Retic 0.049 Sodium Potassium Chloride Carbon Dioxide Anion Gap BUN Creatinine Est GFR ( Amer) Est GFR (Non-Af Amer) Glucose Calcium Total Bilirubin AST ALT Alkaline Phosphatase Total Protein Albumin Blood Type O NEGATIVE Antibody Screen NEGATIVE 09/29/18 09/29/18 09/30/18 10:43 16:23 00:45 Troponin I < 0.012 < 0.012 NT-Pro-B Natriuret Pep 4930 H 09/30/18 06:40 Troponin I < 0.012 NT-Pro-B Natriuret Pep 3570 H Impressions: Chest X-Ray 09/29/18 10:36 IMPRESSION: NO ACUTE RADIOGRAPHIC FINDING IN THE CHEST. Abdomen/Pelvis CT 09/29/18 12:19 IMPRESSION: Multiple extremely bulky masses of the right lobe of the liver, with relative sparing of the left lobe. There is no other obvious primary malignancy in the abdomen, suggesting HCC or cholangiocarcinoma. Small volume associated ascites. Status: Image reviewed by me Assessment & Plan - Diagnosis (1) Colon cancer Qualifiers: Colon location: unspecified part of colon Qualified Code(s): C18.9 - Malignant neoplasm of colon, unspecified Is this a current diagnosis for this admission?: Yes Plan: Was initially recommended to receive further chemotherapy, but patient had been lost to follow-up. Will discuss possible need for repeat Biopsy, but I believe this is most likely recurrent colon cancer. He may benefit from FOLFOX+Avastin. I would like to see bone scan first. I will also check AFP and if AFP is elevated, then may push for a biopsy. I will try to have original path sent for further studies. (2) Anemia Qualifiers: Anemia type: unspecified type Qualified Code(s): D64.9 - Anemia, unspecified Is this a current diagnosis for this admission?: Yes Plan: Most likely iron deficiency, but await further studies today. Consider IV iron or further blood transfusion as indicated. (3) Transaminitis Is this a current diagnosis for this admission?: Yes Plan: Most likely due to the metastatic cancer to the liver. - Plan Summary Plan Summary: Patient was discussed with Zeynep Dean. I have also reviewed old path report, records, etc. I will continue to follow. Please call with any questions or concerns.
[2018-09-30] MEDS: DOCUSATE SODIUM 100 MG CAPSULE PO SCH ×2 (10:01→18:33)
--- NOTE | 2018-09-30 12:34 | PDOC PROGRESS REPORT ---
Subjective Progress Note for:: 09/30/18 Subjective:: 58 year old male who was originally diagnosed with Stage III rectal cancer in November of 2016. He underwent concurrent randolph-adjuvant 5-FU and radiation and then underwent colon resection on 04/03/2017. Although plans were to continue with FOLFOX chemotherapy, patient was lost to follow-up after his surgery. He states that he has not insurance and has no PCP. He was doing well until about 5 days ago when his feet began swelling and he was having more fatigue and dyspnea on exertion. He presented to the ED and was found to have HGB 7.7. CT abdomen showed multiple metastatic appearing lesions in the liver. Patient denies any bowel changes or blood in stool. Today, he states that he can see his feet again, after medication to help with the swelling. He is feeling a bit better but HGB still dropped after blood transfusion. 58-year-old male with history of rectal cancer admitted for generalized weakness and anemia. Hemoglobin is 7.5. Dr. Tavarez wants to hold off on blood transfusions for now. Patient is going for a bone scan today. EKG showed junctional rhythm with heart rate of around 140 patient is asymptomatic no chest pains no chest tightness no shortness of breath. Reason For Visit: WEAKNESS,ANEMIA Physical Exam Vital Signs: Temp Pulse Resp BP Pulse Ox 98.2 F 144 H 18 111/78 99 09/30/18 11:31 09/30/18 11:31 09/30/18 11:31 09/30/18 11:31 09/30/18 11:31 Intake & Output 09/29/18 09/30/18 10/01/18 06:59 06:59 06:59 Intake Total 300 Output Total 650 Balance -350 Weight 83.9 kg General appearance: PRESENT: no acute distress Head exam: PRESENT: atraumatic Eye exam: PRESENT: PERRLA Mouth exam: PRESENT: moist, tongue midline Neck exam: ABSENT: carotid bruit, JVD, lymphadenopathy, thyromegaly Respiratory exam: PRESENT: decreased breath sounds Cardiovascular exam: PRESENT: systolic murmur, tachycardia GI/Abdominal exam: PRESENT: mass, normal bowel sounds, soft, other - Hepatomegaly. ABSENT: distended, guarding, organolmegaly, rebound, tenderness Extremities exam: PRESENT: full ROM, pedal edema, +2 edema. ABSENT: calf tenderness, clubbing Neurological exam: PRESENT: alert, awake, oriented to person, oriented to place, oriented to time, oriented to situation, CN II-XII grossly intact. ABSENT: motor sensory deficit Psychiatric exam: PRESENT: appropriate affect, normal mood. ABSENT: homicidal ideation, suicidal ideation Results Laboratory Results: 09/30/18 06:40 09/29/18 10:43 09/29/18 09/30/18 09/30/18 12:34 00:45 03:05 WBC 6.7 6.5 RBC 2.46 L 2.46 L Hgb 7.3 L 7.3 L Hct 22.4 L 22.5 L MCV 91 91 MCH 29.5 29.6 MCHC 32.5 32.4 RDW 21.1 H 20.3 H Plt Count 186 185 Seg Neutrophils % Lymphocytes % Monocytes % Eosinophils % Basophils % Absolute Neutrophils Absolute Lymphocytes Absolute Monocytes Absolute Eosinophils Absolute Basophils Retic Count (auto) Absolute Retic Iron TIBC % Saturation Ferritin Total Bilirubin AST ALT Alkaline Phosphatase Total Protein Albumin Vitamin B12 Folate Blood Type O NEGATIVE Antibody Screen NEGATIVE 09/30/18 09/30/18 09/30/18 03:52 03:52 06:40 WBC 6.1 RBC 2.51 L Hgb 7.3 L Hct 22.7 L MCV 91 MCH 29.3 MCHC 32.3 RDW 21.2 H Plt Count 194 Seg Neutrophils % Not Reportable Lymphocytes % Not Reportable Monocytes % Not Reportable Eosinophils % Not Reportable Basophils % Not Reportable Absolute Neutrophils Not Reportable Absolute Lymphocytes Not Reportable Absolute Monocytes Not Reportable Absolute Eosinophils Not Reportable Absolute Basophils Not Reportable Retic Count (auto) 1.94 Absolute Retic 0.049 Iron TIBC % Saturation Ferritin Total Bilirubin 1.8 H AST 102 H ALT 24 Alkaline Phosphatase 334 H Total Protein 5.1 L Albumin 2.2 L Vitamin B12 Folate Blood Type O NEGATIVE Antibody Screen NEGATIVE 09/30/18 06:40 WBC RBC Hgb Hct MCV MCH MCHC RDW Plt Count Seg Neutrophils % Lymphocytes % Monocytes % Eosinophils % Basophils % Absolute Neutrophils Absolute Lymphocytes Absolute Monocytes Absolute Eosinophils Absolute Basophils Retic Count (auto) Absolute Retic Iron 19.8 L TIBC 156 L % Saturation 13 Ferritin 772.00 H Total Bilirubin AST ALT Alkaline Phosphatase Total Protein Albumin Vitamin B12 908.0 Folate 6.33 Blood Type Antibody Screen 09/29/18 09/29/18 09/30/18 10:43 16:23 00:45 Troponin I < 0.012 < 0.012 NT-Pro-B Natriuret Pep 4930 H 09/30/18 06:40 Troponin I < 0.012 NT-Pro-B Natriuret Pep 3570 H Impressions: Chest X-Ray 09/29/18 10:36 IMPRESSION: NO ACUTE RADIOGRAPHIC FINDING IN THE CHEST. Abdomen/Pelvis CT 09/29/18 12:19 IMPRESSION: Multiple extremely bulky masses of the right lobe of the liver, with relative sparing of the left lobe. There is no other obvious primary malignancy in the abdomen, suggesting HCC or cholangiocarcinoma. Small volume associated ascites. Assessment and Plan - Diagnosis (1) Colon cancer Qualifiers: Colon location: unspecified part of colon Qualified Code(s): C18.9 - Malignant neoplasm of colon, unspecified Is this a current diagnosis for this admission?: Yes Plan: Patient underwent resection March [address] Hu. Pathology was adenocarcinoma T3 N1 M0 disease. He likely has stage IV colon cancer now with possible bulky lesions in the right lobe of his liver. This was discussed with the patient as well. We will order CEA and oncology consult with Dr. Atwood. 09/30/2018-patient has history of colon cancer status post surgery in 2017 found to have adenocarcinoma during this presentation likely to have stage IV colon cancer with mets to the liver. He is going for bone scan. Dr. Tavarez is on board. CEA level is 818. (2) Anemia Qualifiers: Anemia type: unspecified type Qualified Code(s): D64.9 - Anemia, unspecified Is this a current diagnosis for this admission?: Yes Plan: We will transfuse 1 unit packed red blood cells with 20 mg of Lasix afterwards. We will check anemia profile in the a.m. Rectal exam showed heme-negative stool. He denies any change in bowel habits or dark stools. 09/30/2018-patient received 1 unit of PRBC. Hemoglobin is dropped to 7.3 after her blood transfusion. As per Dr. Tavarez we can hold off on blood transfusions at this time.. Plan is to recheck the labs tomorrow. (3) Elevated brain natriuretic peptide (BNP) level Is this a current diagnosis for this admission?: Yes Plan: BNP was elevated at 4930. Chest x-ray is completely clear. He has no cardiom egaly. We will repeat this in the a.m. He did receive 20 mg of Lasix in the ER without much diuresis. Likely his lower extremity edema is due to anemia and low protein state. Will repeat BNP in am if still elevated will order echo at that time. He does have long history of tobacco use 09/30/2018-patient has elevated BNP. He received Lasix 20 mg IV after 1 unit of blood transfusion. Patient is diuresing well. He has 2+ pedal edema. It may be secondary to third spacing due to low albumin. (4) Transaminitis Is this a current diagnosis for this admission?: Yes Plan: AST 125 bulky liver mets. 09/30/2018-alkaline phosphatase and AST are elevated may be secondary to meds. - Time Time Spent with patient: 25-34 minutes Medications reviewed and adjusted accordingly: Yes
[2018-09-30] MEDS ORDERED: IRON PO SCH (12:45)
[2018-09-30] MEDS ORDERED: (PENDING PHARMACY ID) (Multivit-Min/Fa/Lycopen/Lutein [Centrum Silver Men Tablet] 1 EACH) PO SCH (12:45)
[2018-09-30] MEDS ORDERED: MULTIVIT MIN36 PO SCH (12:45)
[2018-09-30] MEDS ORDERED: FOLIC ACID PO SCH (12:45)
[2018-09-30 13:10] LABS: PATH REVIEW PATHOLOGIST REVIEWED
--- NOTE | 2018-09-30 14:00 | RADIOLOGY REPORT (SQ) ---
EXAM DESCRIPTION: NM WHOLE BODY BONE SCAN COMPLETED DATE/TIME: 09/30/2018 1:48 pm REASON FOR STUDY: Staging for rectal cancer COMPARISON: CT abdomen pelvis 09/29/2018, 04/10/2017 RADIONUCLIDE AND DOSE: 20.3 millicuries Tc99m MDP. The route of agent administration: Intravenous. ADDITIONAL DRUGS AND DOSES: None. TECHNIQUE: Routine delayed images at 3 hour post radionuclide injection acquired of the bony skeleto n including anterior and posterior whole-body projections and additional focused images as needed. LIMITATIONS: None. FINDINGS: Increased uptake is present along the anterior right 7th and 8th ribs at the costochondral cartilage -rib junction. Patient has a heavy burden of tumor throughout the liver. There is actually HDP uptake in the liver tumor from patient's metastatic colon cancer. Remainder of the bone scan is otherwise unremarkable. IMPRESSION: Increased uptake along the anterior right 7th and 8th rib costochondral cartilage -rib j unction. This could be due to focal injury or focal stress at these joints related to massive hepato megaly Patient's metastatic disease to the liver accumulates HDP No bone scan evidence of widespread metastatic skeletal disease COMMENT: Quality measure 147: Current bone scan is compared with any available plain radiographs, p rior bone scans, and CT/MRI. TECHNICAL DOCUMENTATION: JOB ID: [id number] [employer]- All Rights Reserved Reading location - IP/workstation name: [email or web address]
[2018-09-30] MEDS: MULTIVIT-STRESS FORMULA/ZINC TABLET PO SCH (16:38)
[2018-09-30] MEDS: CYANOCOBALAMIN (VITAMIN B-12) 1,000 MCG TABLET PO SCH (16:39)
--- NOTE | 2018-09-30 19:26 | EKG REPORT ---
SEVERITY:- ABNORMAL ECG - SVT NONSPECIFIC REPOL ABNORMALITY, DIFFUSE LEADS PROLONGED QT INTERVAL : Confirmed by: Navjot Fisher 30-Sep-2018 19:25:15
[2018-09-30] MEDS: MELATONIN 5 MG TABLET PO SCH (23:21)
[2018-10-01] MEDS: PANTOPRAZOLE SODIUM 40 MG TABLET.DR PO SCH ×2 (05:19→18:11)
[2018-10-01] MEDS: HEPARIN SOD (PORCINE) 5,000 UNIT/ML 1 ML SYRINGE SUBCUT SCH ×3 (05:19→21:20)
[2018-10-01 07:15] LABS: HEMATOCRIT 22.2 % (37.9-51.0); MEAN CORPUSCULAR HEMOGLOBIN 29.5 pg (27.0-33.4); MEAN CORPUSCULAR HGB CONC 32.2 g/dL (32.0-36.0); MEAN CORPUSCULAR VOLUME 92 fl (80-97); RED BLOOD COUNT 2.42 10^6/uL (4.35-5.55); RED CELL DISTRIBUTION WIDTH 20.9 % (11.5-14.0); WHITE BLOOD COUNT 6.4 10^3/uL (4.0-10.5)
[2018-10-01 07:35] LABS: HEMOGLOBIN 7.1 g/dL (13.5-17.0)
[2018-10-01 07:40] LABS: ALANINE AMINOTRANSFERASE 26 U/L (21-72); ALBUMIN 2.2 g/dL (3.5-5.0); ALKALINE PHOSPHATASE 306 U/L (38-126); ANION GAP 11 (5-19); ASPARTATE AMINO TRANSFERASE 119 U/L (17-59); BILIRUBIN,DIRECT 0.9 mg/dL (0.0-0.4); BILIRUBIN,TOTAL 1.5 mg/dL (0.2-1.3); BLOOD UREA NITROGEN 11 mg/dL (7-20); CALCIUM 7.8 mg/dL (8.4-10.2); CARBON DIOXIDE 25 mmol/L (22-30); CHLORIDE 100 mmol/L (98-107); GLUCOSE 74 mg/dL (75-110); POTASSIUM 3.2 mmol/L (3.6-5.0); SODIUM 135.9 mmol/L (137-145); TOTAL PROTEIN 5.2 g/dL (6.3-8.2)
[2018-10-01 07:41] LABS: ABSOLUTE LYMPHOCYTES# (MANUAL) 0.4 10^3/uL (0.5-4.7); ABSOLUTE MONOCYTES # (MANUAL) 0.2 10^3/uL (0.1-1.4); ABSOLUTE NEUTROPHILS# (MANUAL) 5.8 10^3/uL (1.7-8.2); BAND NEUTROPHILS % (MANUAL) 1 % (3-5); BASOPHILS % (MANUAL) 1 % (0-2); EOSINOPHILS % (MANUAL) 0 % (0-6); LYMPHOCYTES % (MANUAL) 4 % (13-45); MONOCYTES % (MANUAL) 3 % (3-13); SEGMENTED NEUTROPHILS % (MAN) 89 % (42-78); TOTAL CELLS COUNTED 100
[2018-10-01 07:42] LABS: POLYCHROMASIA SLIGHT; SMUDGE CELLS PRESENT
[2018-10-01 07:43] LABS: ANISOCYTOSIS 2+; OVALOCYTES SLIGHT; PLATELET CLUMPS PRESENT; PLATELET COMMENT ADEQUATE; PLATELET COUNT 185 10^3/uL (150-450); POIKILOCYTOSIS 1+; SCHISTOCYTES SLIGHT; TEAR DROP CELLS 1+
[2018-10-01] MEDS: CYANOCOBALAMIN (VITAMIN B-12) 1,000 MCG TABLET PO SCH (10:43)
[2018-10-01] MEDS: DOCUSATE SODIUM 100 MG CAPSULE PO SCH ×2 (10:43→18:11)
[2018-10-01] MEDS: MULTIVIT-STRESS FORMULA/ZINC TABLET PO SCH (10:43)
[2018-10-01] MEDS ORDERED: NORMAL SALINE 250 ML IV PRN ×2 (11:05)
--- NOTE | 2018-10-01 11:18 | PDOC PROGRESS REPORT ---
Subjective Progress Note for:: 10/01/18 Subjective:: Patient states that he is feeling good. However, he is still quite weak and states that he required help getting up from the toilet. ROS: No dyspnea. No nausea. Reason For Visit: WEAKNESS,ANEMIA Physical Exam Vital Signs: Temp Pulse Resp BP Pulse Ox 97.3 F 78 18 110/78 100 10/01/18 07:45 10/01/18 07:45 10/01/18 07:45 10/01/18 07:45 10/01/18 07:45 Intake & Output 09/30/18 10/01/18 10/02/18 06:59 06:59 06:59 Intake Total 300 628 Output Total 650 325 Balance -350 303 Weight 83.9 kg 83.9 kg General appearance: PRESENT: well-developed Head exam: PRESENT: normocephalic Respiratory exam: PRESENT: unlabored GI/Abdominal exam: PRESENT: organolmegaly - Greatly enlarged liver. Neurological exam: PRESENT: alert, awake Psychiatric exam: PRESENT: appropriate affect Skin exam: PRESENT: pallor Results Laboratory Results: 10/01/18 06:15 10/01/18 06:15 09/30/18 10/01/18 10/01/18 03:52 06:15 06:15 WBC 6.4 RBC 2.42 L Hgb 7.1 L Hct 22.2 L MCV 92 MCH 29.5 MCHC 32.2 RDW 20.9 H Plt Count 185 Seg Neutrophils % Not Reportable Lymphocytes % Not Reportable Monocytes % Not Reportable Eosinophils % Not Reportable Basophils % Not Reportable Absolute Neutrophils Not Reportable Absolute Lymphocytes Not Reportable Absolute Monocytes Not Reportable Absolute Eosinophils Not Reportable Absolute Basophils Not Reportable Sodium 135.9 L Potassium 3.2 L Chloride 100 Carbon Dioxide 25 Anion Gap 11 BUN 11 Creatinine 0.58 Est GFR ( Amer) > 60 Est GFR (Non-Af Amer) > 60 Glucose 74 L Calcium 7.8 L Magnesium 2.0 Total Bilirubin 1.5 H AST 119 H ALT 26 Alkaline Phosphatase 306 H Total Protein 5.2 L Albumin 2.2 L Blood Type O NEGATIVE Antibody Screen NEGATIVE 09/29/18 09/29/18 09/30/18 10:43 16:23 00:45 Troponin I < 0.012 < 0.012 NT-Pro-B Natriuret Pep 4930 H 09/30/18 06:40 Troponin I < 0.012 NT-Pro-B Natriuret Pep 3570 H Impressions: Chest X-Ray 09/29/18 10:36 IMPRESSION: NO ACUTE RADIOGRAPHIC FINDING IN THE CHEST. Abdomen/Pelvis CT 09/29/18 12:19 IMPRESSION: Multiple extremely bulky masses of the right lobe of the liver, with relative sparing of the left lobe. There is no other obvious primary malignancy in the abdomen, suggesting HCC or cholangiocarcinoma. Small volume associated ascites. Body Scan Nuclear Medicine 09/30/18 08:35 IMPRESSION: Increased uptake along the anterior right 7th and 8th rib costochondral cartilage -rib junction. This could be due to focal injury or focal stress at these joints related to massive hepatomegaly Patient's metastatic disease to the liver accumulates HDP No bone scan evidence of widespread metastatic skeletal disease Assessment & Plan - Diagnosis (1) Colon cancer Qualifiers: Colon location: unspecified part of colon Qualified Code(s): C18.9 - Malignant neoplasm of colon, unspecified Is this a current diagnosis for this admission?: Yes Plan: Now metastatic. I believe that patient is too weak at this point to start chemo, but may be able to consider this in the future, if he is able to improve his performance status. If not, then he is appropriate for Hospice. (2) Anemia Qualifiers: Anemia type: unspecified type Qualified Code(s): D64.9 - Anemia, unspe cified Is this a current diagnosis for this admission?: Yes Plan: Most likely anemia of chronic disease. His retic is not elevated. He has heme negative stools. Iron, B12, Folate, all normal. His LDH is elevated, which may indicate hemolysis. However, this may also be due to the cancer. He is scheduled to receive 2 units pRBCs again today. (3) Transaminitis Is this a current diagnosis for this admission?: Yes
--- NOTE | 2018-10-01 11:31 | PDOC PROGRESS REPORT ---
Subjective Progress Note for:: 10/01/18 Subjective:: 58 year old male who was originally diagnosed with Stage III rectal cancer in November of 2016. He underwent concurrent randolph-adjuvant 5-FU and radiation and then underwent colon resection on 04/03/2017. Although plans were to continue with FOLFOX chemotherapy, patient was lost to follow-up after his surgery. He states that he has not insurance and has no PCP. He was doing well until about 5 days ago when his feet began swelling and he was having more fatigue and dyspnea on exertion. He presented to the ED and was found to have HGB 7.7. CT abdomen showed multiple metastatic appearing lesions in the liver. Patient denies any bowel changes or blood in stool. Today, he states that he can see his feet again, after medication to help with the swelling. He is feeling a bit better but HGB still dropped after blood transfusion. 58-year-old male with history of rectal cancer admitted for generalized weakness and anemia. Hemoglobin is 7.5. Dr. Tavarez wants to hold off on blood transfusions for now. Patient is going for a bone scan today. EKG showed junctional rhythm with heart rate of around 140 patient is asymptomatic no chest pains no chest tightness no shortness of breath. 10/01/[id number]-vmvg-old male with history of colon cancer admitted for generalized weakness and anemia. He has a bone scan was done and did show some metastasis to the liver. Dr. Tavarez is planning to do chemotherapy as an outpatient. hemoglobin is 7.1 to transfuse 2 units today. Potassium is 3.2 which is going to be supplemented. Patient is comfortably in the bed communicating well not in distress. Reason For Visit: WEAKNESS,ANEMIA Physical Exam Vital Signs: Temp Pulse Resp BP Pulse Ox 97.3 F 78 18 110/78 100 10/01/18 07:45 10/01/18 07:45 10/01/18 07:45 10/01/18 07:45 10/01/18 07:45 Intake & Output 09/30/18 10/01/18 10/02/18 06:59 06:59 06:59 Intake Total 300 628 Output Total 650 325 Balance -350 303 Weight 83.9 kg 83.9 kg General appearance: PRESENT: no acute distress Head exam: PRESENT: atraumatic Eye exam: PRESENT: PERRLA Neck exam: ABSENT: carotid bruit, JVD, lymphadenopathy, thyromegaly Respiratory exam: PRESENT: decreased breath sounds Cardiovascular exam: PRESENT: RRR. ABSENT: diastolic murmur, rubs, systolic murmur GI/Abdominal exam: PRESENT: other - Hepatomegaly Rectal exam: PRESENT: deferred Extremities exam: PRESENT: full ROM, +1 edema. ABSENT: calf tenderness, clubbin g, pedal edema Neurological exam: PRESENT: alert, awake, oriented to person, oriented to place, oriented to time, oriented to situation, CN II-XII grossly intact. ABSENT: mot or sensory deficit Psychiatric exam: PRESENT: appropriate affect, normal mood. ABSENT: homicidal ideation, suicidal ideation Results Laboratory Results: 10/01/18 06:15 10/01/18 06:15 09/30/18 10/01/18 10/01/18 03:52 06:15 06:15 WBC 6.4 RBC 2.42 L Hgb 7.1 L Hct 22.2 L MCV 92 MCH 29.5 MCHC 32.2 RDW 20.9 H Plt Count 185 Seg Neutrophils % Not Reportable Lymphocytes % Not Reportable Monocytes % Not Reportable Eosinophils % Not Reportable Basophils % Not Reportable Absolute Neutrophils Not Reportable Absolute Lymphocytes Not Reportable Absolute Monocytes Not Reportable Absolute Eosinophils Not Reportable Absolute Basophils Not Reportable Sodium 135.9 L Potassium 3.2 L Chloride 100 Carbon Dioxide 25 Anion Gap 11 BUN 11 Creatinine 0.58 Est GFR ( Amer) > 60 Est GFR (Non-Af Amer) > 60 Glucose 74 L Calcium 7.8 L Magnesium 2.0 Total Bilirubin 1.5 H AST 119 H ALT 26 Alkaline Phosphatase 306 H Total Protein 5.2 L Albumin 2.2 L Blood Type O NEGATIVE Antibody Screen NEGATIVE 09/29/18 09/29/18 09/30/18 10:43 16:23 00:45 Troponin I < 0.012 < 0.012 NT-Pro-B Natriuret Pep 4930 H 09/30/18 06:40 Troponin I < 0.012 NT-Pro-B Natriuret Pep 3570 H Impressions: Chest X-Ray 09/29/18 10:36 IMPRESSION: NO ACUTE RADIOGRAPHIC FINDING IN THE CHEST. Abdomen/Pelvis CT 09/29/18 12:19 IMPRESSION: Multiple extremely bulky masses of the right lobe of the liver, with relative sparing of the left lobe. There is no other obvious primary malignancy in the abdomen, suggesting HCC or cholangiocarcinoma. Small volume associated ascites. Body Scan Nuclear Medicine 09/30/18 08:35 IMPRESSION: Increased uptake along the anterior right 7th and 8th rib costochondral cartilage -rib junction. This could be due to focal injury or focal stress at these joints related to massive hepatomegaly Patient's metastatic disease to the liver accumulates HDP No bone scan evidence of widespread metastatic skeletal disease Assessment and Plan - Diagnosis (1) Colon cancer Qualifiers: Colon location: unspecified part of colon Qualified Code(s): C18.9 - Malignant neoplasm of colon, unspecified Is this a current diagnosis for this admission?: Yes Plan: Patient underwent resection March [address] Hu. Pathology was adenocarcino ma T3 N1 M0 disease. He likely has stage IV colon cancer now with possible bulky lesions in the right lobe of his liver. This was discussed with the patient as well. We will order CEA and oncology consult with Dr. Atwood. 09/30/2018-patient has history of colon cancer status post surgery in 2017 found to have adenocarcinoma during this presentation likely to have stage IV colon cancer with mets to the liver. He is going for bone scan. Dr. Tavarez is on board. CEA level is 818. 10/01/2018-patient has history of colon cancer status post surgery in 2017, bone scan was done yesterday no evidence of bone metastasis. But the patient has liver mets. Dr. Tavarez is planning to do chemotherapy as an outpatient. (2) Anemia Qualifiers: Anemia type: unspecified type Qualified Code(s): D64.9 - Anemia, unspecified Is this a current diagnosis for this admission?: Yes Plan: We will transfuse 1 unit packed red blood cells with 20 mg of Lasix afterwards. We will check anemia profile in the a.m. Rectal exam showed heme-negative stool. He denies any change in bowel habits or dark stools. 09/30/2018-patient received 1 unit of PRBC. Hemoglobin is dropped to 7.3 after her blood transfusion. As per Dr. Tavarez we can hold off on blood transfusions at this time.. Plan is to recheck the labs tomorrow. 10/01/2018-patient already received 1 unit of PRBC and hemoglobin dropped to 7.1 plan is to transfuse 2 units of PRBC today. LDH is elevated rest of the anemia work-up is normal. (3) Elevated brain natriuretic peptide (BNP) level Is this a current diagnosis for this admission?: Yes Plan: BNP was elevated at 4930. Chest x-ray is completely clear. He has no cardiomegaly. We will repeat this in the a.m. He did receive 20 mg of Lasix in the ER without much diuresis. Likely his lower extremity edema is due to anemia and low protein state. Will repeat BNP in am if still elevated will order echo at that time. He does have long history of tobacco use 09/30/2018-patient has elevated BNP. He received Lasix 20 mg IV after 1 unit of blood transfusion. Patient is diuresing well. He has 2+ pedal edema. It may be secondary to third spacing due to low albumin. (4) Transaminitis Is this a current diagnosis for this admission?: Yes Plan: AST 125 bulky liver mets. 09/30/2018-alkaline phosphatase and AST are elevated may be secondary to meds. (5) Hypokalemia Is this a current diagnosis for this admission?: Yes Plan: 10/01/2018-serum potassium level is 3.2 today to give 40 mg of p.o. potassium. to Check the labs tomorrow. - Time Time Spent with patient: 15-24 minutes Medications reviewed and adjusted accordingly: Yes Anticipated discharge: Home with Homehealth
[2018-10-01] MEDS ORDERED: POTASSIUM CHLORIDE 20 MEQ PACKET PO ONE ×2 (12:00→17:00)
[2018-10-01] MEDS: MELATONIN 5 MG TABLET PO SCH (21:23)
[2018-10-02] MEDS: HEPARIN SOD (PORCINE) 5,000 UNIT/ML 1 ML SYRINGE SUBCUT SCH ×3 (06:24→21:59)
[2018-10-02] MEDS: PANTOPRAZOLE SODIUM 40 MG TABLET.DR PO SCH ×2 (06:25→18:49)
--- NOTE | 2018-10-02 08:51 | PDOC PROGRESS REPORT ---
Subjective Progress Note for:: 10/02/18 Subjective:: Today had long discussion w/ pt and family, spent >35 min in discussion. Reason For Visit: WEAKNESS,ANEMIA Physical Exam Vital Signs: Temp Pulse Resp BP Pulse Ox 98.1 F 78 18 136/76 H 99 10/01/18 23:30 10/02/18 07:00 10/01/18 23:30 10/01/18 23:30 10/01/18 23:30 Intake & Output 10/01/18 10/02/18 10/03/18 06:59 06:59 06:59 Intake Total 628 1740 Output Total 325 325 Balance 303 1415 Weight 83.9 kg 83.9 kg General appearance: PRESENT: no acute distress, well-developed, well-nourished Head exam: PRESENT: atraumatic, normocephalic Eye exam: PRESENT: conjunctiva pink, EOMI, PERRLA. ABSENT: scleral icterus Ear exam: PRESENT: normal external ear exam Mouth exam: PRESENT: moist, tongue midline Neck exam: ABSENT: carotid bruit, JVD, lymphadenopathy, thyromegaly Respiratory exam: PRESENT: clear to auscultation andria. ABSENT: rales, rhonchi, wheezes Cardiovascular exam: PRESENT: RRR. ABSENT: diastolic murmur, rubs, systolic m urmur Pulses: PRESENT: normal dorsalis pedis pul Vascular exam: PRESENT: normal capillary refill GI/Abdominal exam: PRESENT: normal bowel sounds, soft. ABSENT: distended, guarding, mass, organolmegaly, rebound, tenderness Rectal exam: PRESENT: deferred Extremities exam: PRESENT: full ROM. ABSENT: calf tenderness, clubbing, pedal edema Neurological exam: PRESENT: alert, awake, oriented to person, oriented to place, oriented to time, oriented to situation, CN II-XII grossly intact. ABSENT: motor sensory deficit Psychiatric exam: PRESENT: appropriate affect, normal mood. ABSENT: homicidal ideation, suicidal ideation Skin exam: PRESENT: dry, intact, warm. ABSENT: cyanosis, rash Results Laboratory Results: 09/30/18 03:52 Blood Type O NEGATIVE Antibody Screen NEGATIVE 09/29/18 09/29/18 09/30/18 10:43 16:23 00:45 Troponin I < 0.012 < 0.012 NT-Pro-B Natriuret Pep 4930 H 09/30/18 06:40 Troponin I < 0.012 NT-Pro-B Natriuret Pep 3570 H Impressions: Chest X-Ray 09/29/18 10:36 IMPRESSION: NO ACUTE RADIOGRAPHIC FINDING IN THE CHEST. Abdomen/Pelvis CT 09/29/18 12:19 IMPRESSION: Multiple extremely bulky masses of the right lobe of the liver, with relative sparing of the left lobe. There is no other obvious primary malignancy in the abdomen, suggesting HCC or cholangiocarcinoma. Small volume associated ascites. Body Scan Nuclear Medicine 09/30/18 08:35 IMPRESSION: Increased uptake along the anterior right 7th and 8th rib costochondral cartilage -rib junction. This could be due to focal injury or focal stress at these joints related to massive hepatomegaly Patient's metastatic disease to the liver accumulates HDP No bone scan evidence of widespread metastatic skeletal disease Status: Image reviewed by me Assessment & Plan - Diagnosis (1) Colon cancer Qualifiers: Colon location: sigmoid Qualified Code(s): C18.7 - Malignant neoplasm of sigmoid colon Is this a current diagnosis for this admission?: Yes Plan: Stage IV colon ca w/ liver mets, long discussion w/ pt and family about prognosis and next steps of care. I think he would be a candidate for treatment as an outpt, asked for him to get up and walk around today. (2) Anemia Qualifiers: Anemia type: other cause Other causes of anemia: chronic disease, neoplastic Qualified Code(s): D63.0 - Anemia in neoplastic disease Is this a current diagnosis for this admission?: Yes Plan: Ferritin nml, likely ACD, awaiting hb post transfusion. - Time Time Spent with patient: 35 or more minutes - Inpatient Certification Based on my medical assessment, after consideration of the patient's comorbid ities, presenting symptoms, or acuity I expect that the services needed warrant INPATIENT care.: Yes I certify that my determination is in accordance with my understanding of Medicare's requirements for reasonable and necessary INPATIENT services [42 CFR 412.3e].: Yes Medical Necessity: Risk of Complication if Not Cared For in Hospital
[2018-10-02 09:11] LABS: ALANINE AMINOTRANSFERASE 23 U/L (21-72); ALBUMIN 2.5 g/dL (3.5-5.0); ALKALINE PHOSPHATASE 338 U/L (38-126); ANION GAP 11 (5-19); ASPARTATE AMINO TRANSFERASE 158 U/L (17-59); BILIRUBIN,DIRECT 1.2 mg/dL (0.0-0.4); BILIRUBIN,TOTAL 1.8 mg/dL (0.2-1.3); BLOOD UREA NITROGEN 12 mg/dL (7-20); CARBON DIOXIDE 25 mmol/L (22-30); CHLORIDE 100 mmol/L (98-107); GLUCOSE 81 mg/dL (75-110); POTASSIUM 3.9 mmol/L (3.6-5.0); SODIUM 135.7 mmol/L (137-145); TOTAL PROTEIN 5.7 g/dL (6.3-8.2)
[2018-10-02 09:16] LABS: HEMATOCRIT 29.5 % (37.9-51.0); MEAN CORPUSCULAR HEMOGLOBIN 29.4 pg (27.0-33.4); MEAN CORPUSCULAR HGB CONC 32.4 g/dL (32.0-36.0); MEAN CORPUSCULAR VOLUME 91 fl (80-97); PLATELET COUNT 203 10^3/uL (150-450); RED BLOOD COUNT 3.25 10^6/uL (4.35-5.55); WHITE BLOOD COUNT 8.6 10^3/uL (4.0-10.5)
[2018-10-02 09:21] LABS: HEMOGLOBIN 9.6 g/dL (13.5-17.0)
[2018-10-02 09:39] LABS: ABSOLUTE LYMPHOCYTES# (MANUAL) 0.6 10^3/uL (0.5-4.7); ABSOLUTE MONOCYTES # (MANUAL) 0.5 10^3/uL (0.1-1.4); ABSOLUTE NEUTROPHILS# (MANUAL) 7.4 10^3/uL (1.7-8.2); BASOPHILS % (MANUAL) 1 % (0-2); EOSINOPHILS % (MANUAL) 0 % (0-6); LYMPHOCYTES % (MANUAL) 7 % (13-45); MONOCYTES % (MANUAL) 6 % (3-13); SEGMENTED NEUTROPHILS % (MAN) 86 % (42-78); TOTAL CELLS COUNTED 100
[2018-10-02 09:40] LABS: ANISOCYTOSIS 2+; OVALOCYTES SLIGHT; PLATELET COMMENT ADEQUATE; POIKILOCYTOSIS SLIGHT; POLYCHROMASIA SLIGHT; TARGET CELLS SLIGHT; TEAR DROP CELLS SLIGHT
[2018-10-02] MEDS: MULTIVIT-STRESS FORMULA/ZINC TABLET PO SCH (10:04)
[2018-10-02] MEDS: DOCUSATE SODIUM 100 MG CAPSULE PO SCH ×2 (10:04→18:49)
[2018-10-02] MEDS: CYANOCOBALAMIN (VITAMIN B-12) 1,000 MCG TABLET PO SCH (10:04)
--- NOTE | 2018-10-02 15:22 | PDOC PROGRESS REPORT ---
Subjective Progress Note for:: 10/02/18 Subjective:: 58 year old male who was originally diagnosed with Stage III rectal cancer in November of 2016. He underwent concurrent randolph-adjuvant 5-FU and radiation and then underwent colon resection on 04/03/2017. Although plans were to continue with FOLFOX chemotherapy, patient was lost to follow-up after his surgery. He states that he has not insurance and has no PCP. He was doing well until about 5 days ago when his feet began swelling and he was having more fatigue and dyspnea on exertion. He presented to the ED and was found to have HGB 7.7. CT abdomen showed multiple metastatic appearing lesions in the liver. Patient denies any bowel changes or blood in stool. Today, he states that he can see his feet again, after medication to help with the swelling. He is feeling a bit better but HGB still dropped after blood transfusion. 58-year-old male with history of rectal cancer admitted for generalized weakness and anemia. Hemoglobin is 7.5. Dr. Tavarez wants to hold off on blood transfusions for now. Patient is going for a bone scan today. EKG showed junctional rhythm with heart rate of around 140 patient is asymptomatic no chest pains no chest tightness no shortness of breath. 10/01/[id number]-uykr-old male with history of colon cancer admitted for generalized weakness and anemia. He has a bone scan was done and did show some metastasis to the liver. Dr. Tavarez is planning to do chemotherapy as an outpatient. hemoglobin is 7.1 to transfuse 2 units today. Potassium is 3.2 which is going to be supplemented. Patient is comfortably in the bed communicating well not in distress. 10/02/2018-no acute events in the last 24 hours. Patient is afebrile. Latest hemoglobin is 9.6 after 2 units of blood transfusion yesterday. Hypokalemia is also resolved. Plan to arrange for a production planner to make arrangements provide help during the discharge. comfortably in the bed communicating well. Reason For Visit: WEAKNESS,ANEMIA Physical Exam Vital Signs: Temp Pulse Resp BP Pulse Ox 98.4 F 78 25 H 117/79 99 10/02/18 08:00 10/02/18 08:00 10/02/18 08:00 10/02/18 08:00 10/02/18 08:00 Intake & Output 04/3010/02/18 10/03/18 06:59 06:59 06:59 Intake Total 628 5360 Output Total 325 325 Balance 303 1415 Weight 83.9 kg 83.9 kg General appearance: PRESENT: no acute distress, well-developed Head exam: PRESENT: atraumatic Eye exam: PRESENT: PERRLA Mouth exam: PRESENT: moist, tongue midline Neck exam: ABSENT: carotid bruit, JVD, lymphadenopathy, thyromegaly Respiratory exam: PRESENT: decreased breath sounds Cardiovascular exam: PRESENT: RRR. ABSENT: diastolic murmur, rubs, systolic murmur GI/Abdominal exam: PRESENT: normal bowel sounds, soft. ABSENT: distended, guarding, mass, organolmegaly, rebound, tenderness Rectal exam: PRESENT: deferred Extremities exam: PRESENT: full ROM. ABSENT: calf tenderness, clubbing, pedal edema Neurological exam: PRESENT: alert, awake, oriented to person, oriented to place, oriented to time, oriented to situation, CN II-XII grossly intact. ABSENT: motor sensory deficit Psychiatric exam: PRESENT: appropriate affect, normal mood. ABSENT: homicidal ideation, suicidal ideation Results Laboratory Results: 10/02/18 08:20 10/02/18 08:20 09/30/18 10/02/18 10/02/18 03:52 08:20 08:20 WBC 8.6 RBC 3.25 L Hgb 9.6 L D Hct 29.5 L MCV 91 MCH 29.4 MCHC 32.4 RDW 19.0 H Plt Count 203 Seg Neutrophils % Not Reportable Lymphocytes % Not Reportable Monocytes % Not Reportable Eosinophils % Not Reportable Basophils % Not Reportable Absolute Neutrophils Not Reportable Absolute Lymphocytes Not Reportable Absolute Monocytes Not Reportable Absolute Eosinophils Not Reportable Absolute Basophils Not Reportable Sodium 135.7 L Potassium 3.9 Chloride 100 Carbon Dioxide 25 Anion Gap 11 BUN 12 Creatinine 0.53 Est GFR ( Amer) > 60 Est GFR (Non-Af Amer) > 60 Glucose 81 Calcium 8.0 L Magnesium 2.0 Total Bilirubin 1.8 H AST 158 H ALT 23 Alkaline Phosphatase 338 H Total Protein 5.7 L Albumin 2.5 L Blood Type O NEGATIVE Antibody Screen NEGATIVE 09/29/18 09/29/18 09/30/18 10:43 16:23 00:45 Troponin I < 0.012 < 0.012 NT-Pro-B Natriuret Pep 4930 H 09/30/18 06:40 Troponin I < 0.012 NT-Pro-B Natriuret Pep 3570 H Impressions: Chest X-Ray 09/29/18 10:36 IMPRESSION: NO ACUTE RADIOGRAPHIC FINDING IN THE CHEST. Abdomen/Pelvis CT 09/29/18 12:19 IMPRESSION: Multiple extremely bulky masses of the right lobe of the liver, with relative sparing of the left lobe. There is no other obvious primary malignancy in the abdomen, suggesting HCC or cholangiocarcinoma. Small volume associated ascites. Body Scan Nuclear Medicine 09/30/18 08:35 IMPRESSION: Increased uptake along the anterior right 7th and 8th rib costochondral cartilage -rib junction. This could be due to focal injury or fo rosamaria stress at these joints related to massive hepatomegaly Patient's metastatic disease to the liver accumulates HDP No bone scan evidence of widespread metastatic skeletal disease Assessment and Plan - Diagnosis (1) Colon cancer Qualifiers: Colon location: sigmoid Qualified Code(s): C18.7 - Malignant neoplasm of sigmoid colon Is this a current diagnosis for this admission?: Yes Plan: Patient underwent resection March [address] Hu. Pathology was adenocarcinoma T3 N1 M0 disease. He likely has stage IV colon cancer now with possible bulky lesions in the right lobe of his liver. This was discussed with the patient as well. We will order CEA and oncology consult with Dr. Atwood. 09/30/2018-patient has history of colon cancer status post surgery in 2017 found to have adenocarcinoma during this presentation likely to have stage IV colon cancer with mets to the liver. He is going for bone scan. Dr. Tavarez is on board. CEA level is 818. 10/01/2018-patient has history of colon cancer status post surgery in 2017, bone scan was done yesterday no evidence of bone metastasis. But the patient has liver mets. Dr. Tavarez is planning to do chemotherapy as an outpatient. 10/02/2018-patient has history of colon cancer bone scan was done negative for bone mets and shows liver mets. Patient is going to follow-up with Dr. Rebolledo as an outpatient for chemotherapy. (2) Anemia Qualifiers: Anemia type: other cause Other causes of anemia: chronic disease, neoplastic Qualified Code(s): D63.0 - Anemia in neoplastic disease Is this a current diagnosis for this admission?: Yes Plan: We will transfuse 1 unit packed red blood cells with 20 mg of Lasix afterwards. We will check anemia profile in the a.m. Rectal exam showed heme-negative stool. He denies any change in bowel habits or dark stools. 09/30/2018-patient received 1 unit of PRBC. Hemoglobin is dropped to 7.3 after her blood transfusion. As per Dr. Tavarez we can hold off on blood transfusions at this time.. Plan is to recheck the labs tomorrow. 10/01/2018-patient already received 1 unit of PRBC and hemoglobin dropped to 7.1 plan is to transfuse 2 units of PRBC today. LDH is elevated rest of the anemia work-up is normal. 10/02/2018-patient's hemoglobin is 9.6 after 2 units of blood transfusion. Patient has anemia of chronic disease secondary to underlying malignancy. (3) Elevated brain natriuretic peptide (BNP) level Is this a current diagnosis for this admission?: Yes Plan: BNP was elevated at 4930. Chest x-ray is completely clear. He has no cardiomegaly. We will repeat this in the a.m. He did receive 20 mg of Lasix in the ER without much diuresis. Likely his lower extremity edema is due to anemia and low protein state. Will repeat BNP in am if still elevated will order echo at that time. He does have long history of tobacco use 09/30/2018-patient has elevated BNP. He received Lasix 20 mg IV after 1 unit of blood transfusion. Patient is diuresing well. He has 2+ pedal edema. It may be secondary to third spacing due to low albumin. (4) Transaminitis Is this a current diagnosis for this admission?: Yes Plan: AST 125 bulky liver mets. 09/30/2018-alkaline phosphatase and AST are elevated may be secondary to mets. 10/02/2018-elevated LFTs probably secondary to liver mets. (5) Hypokalemia Is this a current diagnosis for this admission?: Yes Plan: 10/01/2018-serum potassium level is 3.2 today to give 40 mg of p.o. potassium. to Check the labs tomorrow. 10/02/2018-patient serum potassium is 3.9 hypokalemia is resolved. - Time Time Spent with patient: 15-24 minutes Medications reviewed and adjusted accordingly: Yes Anticipated discharge: Home
[2018-10-02] MEDS: MELATONIN 5 MG TABLET PO SCH (21:59)
[2018-10-03] MEDS: PANTOPRAZOLE SODIUM 40 MG TABLET.DR PO SCH (06:45)
[2018-10-03] MEDS: HEPARIN SOD (PORCINE) 5,000 UNIT/ML 1 ML SYRINGE SUBCUT SCH (06:45)
[2018-10-03] MEDS: CYANOCOBALAMIN (VITAMIN B-12) 1,000 MCG TABLET PO SCH (10:18)
[2018-10-03] MEDS: DOCUSATE SODIUM 100 MG CAPSULE PO SCH (10:18)
[2018-10-03] MEDS: MULTIVIT-STRESS FORMULA/ZINC TABLET PO SCH (10:18)
[2018-10-03 11:54] LABS: HEMATOCRIT 26.2 % (37.9-51.0); HEMOGLOBIN 8.5 g/dL (13.5-17.0); MEAN CORPUSCULAR HEMOGLOBIN 29.5 pg (27.0-33.4); MEAN CORPUSCULAR HGB CONC 32.4 g/dL (32.0-36.0); MEAN CORPUSCULAR VOLUME 91 fl (80-97); PLATELET COUNT 180 10^3/uL (150-450); RED BLOOD COUNT 2.88 10^6/uL (4.35-5.55); RED CELL DISTRIBUTION WIDTH 19.1 % (11.5-14.0); WHITE BLOOD COUNT 7.9 10^3/uL (4.0-10.5)
[2018-10-03 12:16] LABS: ALANINE AMINOTRANSFERASE 32 U/L (21-72); ALBUMIN 2.1 g/dL (3.5-5.0); ALKALINE PHOSPHATASE 297 U/L (38-126); ANION GAP 8 (5-19); ASPARTATE AMINO TRANSFERASE 127 U/L (17-59); BILIRUBIN,TOTAL 1.3 mg/dL (0.2-1.3); BLOOD UREA NITROGEN 10 mg/dL (7-20); CALCIUM 7.8 mg/dL (8.4-10.2); CARBON DIOXIDE 24 mmol/L (22-30); CHLORIDE 101 mmol/L (98-107); GLUCOSE 89 mg/dL (75-110); POTASSIUM 3.9 mmol/L (3.6-5.0); SODIUM 132.8 mmol/L (137-145); TOTAL PROTEIN 5.2 g/dL (6.3-8.2)
[2018-10-03 12:24] LABS: ABSOLUTE LYMPHOCYTES# (MANUAL) 0.7 10^3/uL (0.5-4.7); ABSOLUTE MONOCYTES # (MANUAL) 0.4 10^3/uL (0.1-1.4); ABSOLUTE NEUTROPHILS# (MANUAL) 6.8 10^3/uL (1.7-8.2); BASOPHILS % (MANUAL) 0 % (0-2); EOSINOPHILS % (MANUAL) 0 % (0-6); LYMPHOCYTES % (MANUAL) 9 % (13-45); MONOCYTES % (MANUAL) 5 % (3-13); SEGMENTED NEUTROPHILS % (MAN) 86 % (42-78); TOTAL CELLS COUNTED 100
[2018-10-03 12:25] LABS: ANISOCYTOSIS 2+; OVALOCYTES 1+; POIKILOCYTOSIS 1+; POLYCHROMASIA SLIGHT
[2018-10-03 12:26] LABS: PLATELET COMMENT ADEQUATE; SCHISTOCYTES SLIGHT
[2018-10-03 15:27] VITALS: BP 106/62
--- NOTE | 2018-10-03 16:01 | PDOC DISCHARGE SUMMARY ---
General - Admit/Disc Date/PCP Admission Date/Primary Care Provider: 10/01/18 13:42 Discharge Date: 10/03/18 - Discharge Diagnosis (1) Colon cancer Is this a current diagnosis for this admission?: Yes Summary: Patient underwent resection March [address] Hu. 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 He likely has stage IV colon cancer now with possible bulky lesions in the right lobe of his liver. This was discussed with the patient as well. We will order CEA and oncology consult with Dr. Atwood. 09/30/2018-patient has history of colon cancer status post surgery in 2017 found to have adenocarcinoma during this presentation likely to have stage IV colon cancer with mets to the liver. He is going for bone scan. Dr. Tavarez is on board. CEA level is 818. 10/01/2018-patient has history of colon cancer status post surgery in 2016, bone scan was done yesterday no evidence of bone metastasis. But the patient has liver mets. Dr. Tavarez is planning to do chemotherapy as an outpatient. 10/02/2018-patient has history of colon cancer bone scan was done negative for bone mets and shows liver mets. Patient is going to follow-up with Dr. Andrews as an outpatient for chemotherapy. 10/03/2018-bne scan neg foe mets. pt has h/o colon cancer with liver mets. Dr andrews is going to follow the pt at his office. (2) Anemia Is this a current diagnosis for this admission?: Yes Summary: 10/03/2018-We will transfuse 1 unit packed red blood cells with 20 mg of Lasix afterwards. We will check anemia profile in the a.m. Rectal exam showed heme- negative stool. He denies any change in bowel habits or dark stools. 09/30/2018-patient received 1 unit of PRBC. Hemoglobin is dropped to 7.3 after her blood transfusion. As per Dr. Tavarez we can hold off on blood transfusions at this time.. Plan is to recheck the labs tomorrow. 10/01/2018-patient already received 1 unit of PRBC and hemoglobin dropped to 7.1 plan is to transfuse 2 units of PRBC today. LDH is elevated rest of the anemia work-up is normal. 10/02/2018-patient's hemoglobin is 9.6 after 2 units of blood transfusion. Patient has anemia of chronic disease secondary to underlying malignancy. 10/03/2018- hemoglobin today is 8.5 . disccussed the care with Dr Atwood , pt is ok to go home. (3) Elevated brain natriuretic peptide (BNP) level Is this a current diagnosis for this admission?: Yes (4) Transaminitis Is this a current diagnosis for this admission?: Yes (5) Hypokalemia Is this a current diagnosis for this admission?: Yes - Additional Information Resuscitation Status: Full Code Discharge Diet: Cardiac Discharge Activity: Activity As Tolerated, Balance Activity w/Rest, Slowly Increase Activity Home Medications: Cyanocobalamin (Vitamin B-12) [Vitamin B-12] 1,000 mcg PO DAILY 09/30/18 Multivit-Min/FA/Lycopen/Lutein [Centrum Silver Men Tablet] 1 each PO DAILY 09/30/18 Multivit-Min36/Iron/Folic Acid [Geritol Complete Tablet] 1 each PO Q2DAYS 09/30/18 History of Present Illness History of Present Illness: DAMASO HICKS is a 58 year old male 58 year old male with past medical history of colon cancer resected in 2016; who presents to [facility]'s emergency room this afternoon with complaints of increasing weakness, weight loss, lower extremity edema and shortness of breath with exertion. He states his symptoms have been progressive over the last several months. He estimates he has lost approximately 40 pounds despite normal appetite. He has no primary care provider. He takes no routine medicines. He has had some mild pedal and ankle edema for the last month. He denies any shortness of breath at rest. He denies any orthopnea. He has no history of congestive heart failure or COPD. He states he was a smoker up until March when he quit. He has a [id number] history of tobacco. He was found to be anemic with hemoglobin of 7.7. He denies any change in stools. He denies any diarrhea or constipation. He underwent CT of the abdomen and pelvis which showed multiple bulky lesions in his liver. He was referred to the hospitalist service for admission. Physical Exam Vital Signs: Temp Pulse Resp BP Pulse Ox 98.3 F 84 16 106/62 100 10/03/18 15:21 10/03/18 15:21 10/03/18 15:21 10/03/18 15:21 10/03/18 15:21 Intake & Output 10/02/18 10/03/18 10/04/18 06:59 06:59 06:59 Intake Total 1740 770 Output Total 325 180 Balance 1415 590 Weight 83.9 kg 83.9 kg General appearance: PRESENT: no acute distress Head exam: PRESENT: atraumatic Eye exam: PRESENT: PERRLA Mouth exam: PRESENT: moist, tongue midline Neck exam: ABSENT: carotid bruit, JVD, lymphadenopathy, thyromegaly Respiratory exam: PRESENT: decreased breath sounds Cardiovascular exam: PRESENT: RRR. ABSENT: diastolic murmur, rubs, systolic murmur GI/Abdominal exam: PRESENT: normal bowel sounds, soft. ABSENT: distended, guarding, mass, organolmegaly, rebound, tenderness Rectal exam: PRESENT: deferred Extremities exam: PRESENT: full ROM. ABSENT: calf tenderness, clubbing, pedal edema Neurological exam: PRESENT: alert, awake, oriented to person, oriented to place, oriented to time, oriented to situation, CN II-XII grossly intact. ABSENT: motor sensory deficit Psychiatric exam: PRESENT: appropriate affect, normal mood. ABSENT: homicidal ideation, suicidal ideation Results Laboratory Results: 10/03/18 11:43 10/03/18 11:43 10/03/18 10/03/18 11:43 11:43 WBC 7.9 RBC 2.88 L Hgb 8.5 L Hct 26.2 L MCV 91 MCH 29.5 MCHC 32.4 RDW 19.1 H Plt Count 180 Seg Neutrophils % Not Reportable Lymphocytes % Not Reportable Monocytes % Not Reportable Eosinophils % Not Reportable Basophils % Not Reportable Absolute Neutrophils Not Reportable Absolute Lymphocytes Not Reportable Absolute Monocytes Not Reportable Absolute Eosinophils Not Reportable Absolute Basophils Not Reportable Sodium 132.8 L Potassium 3.9 Chloride 101 Carbon Dioxide 24 Anion Gap 8 BUN 10 Creatinine 0.51 L Est GFR ( Amer) > 60 Est GFR (Non-Af Amer) > 60 Glucose 89 Calcium 7.8 L Magnesium 1.9 Total Bilirubin 1.3 AST 127 H ALT 32 Alkaline Phosphatase 297 H Total Protein 5.2 L Albumin 2.1 L 09/29/18 09/29/18 09/30/18 10:43 16:23 00:45 Troponin I < 0.012 < 0.012 NT-Pro-B Natriuret Pep 4930 H 09/30/18 06:40 Troponin I < 0.012 NT-Pro-B Natriuret Pep 3570 H Impressions: Chest X-Ray 09/29/18 10:36 IMPRESSION: NO ACUTE RADIOGRAPHIC FINDING IN THE CHEST. Abdomen/Pelvis CT 09/29/18 12:19 IMPRESSION: Multiple extremely bulky masses of the right lobe of the liver, with relative sparing of the left lobe. There is no other obvious primary malig alex in the abdomen, suggesting HCC or cholangiocarcinoma. Small volume associated ascites. Body Scan Nuclear Medicine 09/30/18 08:35 IMPRESSION: Increased uptake along the anterior right 7th and 8th rib costochondral cartilage -rib junction. This could be due to focal injury or focal stress at these joints related to massive hepatomegaly Patient's metastatic disease to the liver accumulates HDP No bone scan evidence of widespread metastatic skeletal disease Qualifiers - * PATIENT BEING DISCHARGED WITH ANY OF THE FOLLOWING DIAGNOSIS: No VTE patient discharged on overlapping Therapy?: No Acute Heart Failure Is this a Heart Failure Patient?: No Plan Discharge Plan: pt is going home today Time Spent: Greater than 30 Minutes
== END 2018-10-03 15:55 | disposition home or self-care (01) | DRG 375 ==
LOC: ER 09:58 → INTOOBSV 16:01 → EH 16:01 → 5 17:30 → OBSVTOIN 10-01 13:42
PROVIDERS: ADMIT Internal Medicine; ATTEND Internal Medicine
PROC: 30233N1 Transfusion of Nonautologous Red Blood Cells into Peripheral Vein, Percutaneous Approach (ICD-10-PCS; 2018-09-29)
PROC: 30233N1 Transfusion of Nonautologous Red Blood Cells into Peripheral Vein, Percutaneous Approach (ICD-10-PCS; principal; 2018-10-01)
DX: C18.7 Malignant neoplasm of sigmoid colon (principal); C78.7 Secondary malignant neoplasm of liver and intrahepatic bile duct; D63.0 Anemia in neoplastic disease; R74.0 Nonspecific elevation of levels of transaminase and lactic acid dehydrogenase [LDH]; E87.6 Hypokalemia; R79.89 Other specified abnormal findings of blood chemistry; R63.4 Abnormal weight loss; Z87.891 Personal history of nicotine dependence; Z90.49 Acquired absence of other specified parts of digestive tract; Z80.0 Family history of malignant neoplasm of digestive organs; Z88.6 Allergy status to analgesic agent; Z88.8 Allergy status to other drugs, medicaments and biological substances; Z92.3 Personal history of irradiation; Z92.21 Personal history of antineoplastic chemotherapy; Z59.7 Insufficient social insurance and welfare support
CPT/HCPCS: 36415; 36430; 71045; 74177; 78306; 80053; 80076; 82105; 82378; 82607; 82728; 82746; 83010; 83540; 83550; 83615; 83735; 83880; 84484; 85025; 85027; 85045; 85610; 85730; 86850; 86900; 86901; 86920; 93005; 93010; 96374; 99285; A9561; G0378; J1644; J1940; J3490; P9016; Q9969

== ENCOUNTER 2018-10-16 08:43 | Outpatient (CLI) | payer SELFPAY ==
[~2018-10-16 08:43] MED LIST changes: -ACETAMINOPHEN 325 MG TABLET PO PRN; +CONTAINER EMPTY IV PRN; +DEXAMETHASONE 10 MG in NS 50 ML IV PRN; +DEXTROSE 5% IV PRN; +DEXTROSE 5%-WATER 250 ML IV PRN; +DISPOSABLE IV PRN; -ERTAPENEM SODIUM 1 GM in NORMAL SALINE 50 ML IV PRN; +FLUOROURACIL IV PRN; -GLYCOPYRROLATE INJ 0.4 MG/2 ML VIAL ONE; -LACTATED RINGERS 1000 ML IV PRN; +LEUCOVORIN CALCIUM IV PRN; -LIDOCAINE 0.5% INJ-PF (5 MG/ML) 50 ML SDV SUBCUT PRN; -NEOSTIGMINE METHYLSULFATE 10 MG/10 ML VIAL ONE; -ONDANSETRON HCL INJ/PF 4 MG/2 ML SDV ONE; +OXALIPLATIN IV PRN; +PALONOSETRON 0.25 MG/5 ML VIAL IV PRN; -ROCURONIUM BROMIDE INJ 50 MG/5 ML VIAL IV ONE; -SUCCINYLCHOLINE CHLORIDE INJ 200 MG/10 ML VIAL ONE; +WATER IV PRN
[2018-10-16 10:15] VITALS: BP 103/74
== END 2018-10-16 14:55 | disposition home or self-care (01) ==
LOC: II 08:43 → 5TH 08:51 → II 14:55
PROVIDERS: ATTEND Internal Medicine
PROC: 3E04305 Introduction of Other Antineoplastic into Central Vein, Percutaneous Approach (ICD-10-PCS; principal; 2018-10-16)
PROC: 3E0433Z Introduction of Anti-inflammatory into Central Vein, Percutaneous Approach (ICD-10-PCS; 2018-10-16)
PROC: 3E043GC Introduction of Other Therapeutic Substance into Central Vein, Percutaneous Approach (ICD-10-PCS; 2018-10-16)
DX: Z51.11 Encounter for antineoplastic chemotherapy (principal); C20 Malignant neoplasm of rectum; C78.7 Secondary malignant neoplasm of liver and intrahepatic bile duct
CPT/HCPCS: 96409; 96413; 96415; 96416; 96365; 96374; 96417; J3490 ×3; J9190; J7060; J1100; J1642; J9263; J2469; 96367; 96368; 96375; 96411

== ENCOUNTER 2018-10-18 12:11 | Outpatient (CLI) | payer SELFPAY ==
[2018-10-18 12:53] LABS: HEMATOCRIT 27.7 % (37.9-51.0); HEMOGLOBIN 8.9 g/dL (13.5-17.0); MEAN CORPUSCULAR HEMOGLOBIN 29.8 pg (27.0-33.4); MEAN CORPUSCULAR VOLUME 93 fl (80-97); RED BLOOD COUNT 2.98 10^6/uL (4.35-5.55); RED CELL DISTRIBUTION WIDTH 19.7 % (11.5-14.0)
[2018-10-18 13:15] LABS: ABSOLUTE LYMPHOCYTES# (MANUAL) 1.4 10^3/uL (0.5-4.7); ABSOLUTE MONOCYTES # (MANUAL) 0.2 10^3/uL (0.1-1.4); ABSOLUTE NEUTROPHILS# (MANUAL) 7.5 10^3/uL (1.7-8.2); BAND NEUTROPHILS % (MANUAL) 1 % (3-5); BASOPHILS % (MANUAL) 0 % (0-2); EOSINOPHILS % (MANUAL) 0 % (0-6); LYMPHOCYTES % (MANUAL) 14 % (13-45); MONOCYTES % (MANUAL) 2 % (3-13); SEGMENTED NEUTROPHILS % (MAN) 82 % (42-78); TOTAL CELLS COUNTED 100
[2018-10-18 13:16] LABS: ANISOCYTOSIS 2+; OVALOCYTES SLIGHT; PLATELET CLUMPS PRESENT; POIKILOCYTOSIS SLIGHT; POLYCHROMASIA SLIGHT; SCHISTOCYTES SLIGHT; TEAR DROP CELLS SLIGHT
[2018-10-18 13:17] LABS: PLATELET COMMENT ADEQUATE; PLATELET COUNT 253 10^3/uL (150-450)
[2018-10-18] MEDS ORDERED: NORMAL SALINE INJ/PF 0.9% 10 ML SDV IV PRN (14:55)
== END 2018-10-18 13:00 | disposition home or self-care (01) ==
LOC: II 12:11 → 5TH 12:15 → II 13:00
PROVIDERS: ATTEND Internal Medicine
DX: C20 Malignant neoplasm of rectum (principal); C78.7 Secondary malignant neoplasm of liver and intrahepatic bile duct; G47.00 Insomnia, unspecified; R60.0 Localized edema; I50.9 Heart failure, unspecified; Z79.899 Other long term (current) drug therapy
CPT/HCPCS: 36415; 85025

== ENCOUNTER → 2019-01-10 | Outpatient (CLI) | payer MEDICAID ==
--- NOTE | 2019-01-10 09:49 | RADIOLOGY REPORT (SQ) ---
EXAM DESCRIPTION: CT CHEST WITH COMPLETED DATE/TIME: 01/10/2019 7:55 am REASON FOR STUDY: RECTAL CA (C20) C20 MALIGNANT NEOPLASM OF RECTUM COMPARISON: 03/08/2017 TECHNIQUE: CT scan of the chest performed using helical scanning technique with dynamic intravenous contrast injection. Images reviewed with lung, soft tissue and bone windows. Reconstructed coronal and sagittal MPR and MIP images reviewed. All images stored on PACS. All CT scanners at this facility use dose modulation, iterative reconstruction, and/or weight based d osing when appropriate to reduce radiation dose to as low as reasonably achievable (ALARA). [facility]: Dose Right [facility]: CareDose [facility]: Dose Right [facility]: Teradose 4D [facility]: [employer] CONTRAST TYPE AND DOSE: 85 cc Omnipaque 350- low osmolar. RENAL FUNCTION: Creatinine 1.5 RADIATION DOSE: . LIMITATIONS: None. FINDINGS: LUNGS AND PLEURA: No opacities, nodules, masses. No pneumothorax. No effusions. HILAR AND MEDIASTINAL STRUCTURES: No identified masses or abnormal nodes. HEART AND VASCULAR STRUCTURES: No aneurysm or dissection. No central pulmonary emboli. No pericardi al effusion. HARDWARE: Right internal jugular chest port with catheter tip at SVC. UPPER ABDOMEN: See separate report of the CT of the abdomen. THYROID AND OTHER SOFT TISSUES: No masses. No adenopathy. BONES: No significant finding. OTHER: No other significant finding. IMPRESSION: 1. No evidence of intrathoracic metastatic disease or acute intrathoracic process. TECHNICAL DOCUMENTATION: JOB ID: [id number] Quality ID # [id number]: Final reports with documentation of one or more dose reduction techniques (e.g., Au tomated exposure control, adjustment of the mA and/or kV according to patient size, use of iterative reconstruction technique) 2010 [employer]- All Rights Reserved Reading location - IP/workstation name: [email or web address]
--- NOTE | 2019-01-10 10:22 | RADIOLOGY REPORT (SQ) ---
EXAM DESCRIPTION: CT ABD/PELVIS WITH IV ORAL COMPLETED DATE/TIME: 01/10/2019 7:55 am REASON FOR STUDY: RECTAL CA (C20) C20 MALIGNANT NEOPLASM OF RECTUM COMPARISON: 04/10/2017 TECHNIQUE: CT scan of the abdomen and pelvis performed using helical scanning technique with dynamic intravenous contrast injection. No oral contrast. Images reviewed with lung, soft tissue, and bone windows. Reconstructed coronal and sagittal MPR images reviewed. Delayed images for evaluation of the urinary system also acquired. All images stored on PACS. All CT scanners at this facility use dose modulation, iterative reconstruction, and/or weight based d osing when appropriate to reduce radiation dose to as low as reasonably achievable (ALARA). [facility]: Dose Right [facility]: CareDose [facility]: Dose Right [facility]: Teradose 4D [facility]: [employer] CONTRAST TYPE AND DOSE: contrast/concentration: Isovue 350.00 mg/ml; Total Contrast Delivered: 85.0 ml; Total Saline Delivered: 69.0 ml RENAL FUNCTION: See chest RADIATION DOSE: CT Rad equipment meets quality standard of care and radiation dose reduction techniq ues were employed. CTDIvol: 4.8 - 9.7 mGy. DLP: 980 mGy-cm.. LIMITATIONS: None. FINDINGS: LOWER CHEST: See separate report of the CT of the chest. LIVER: There are multiple enlarged heterogeneous masses within the right hepatic lobe and segment 4, largest within the segment 5/6 measuring approximately 11 point 2 cm, similar to prior (series 3, ezequiel ge 30). There are scattered areas of increased attenuation along segments 6 and 7, possibly calcific ations, contrast or from prior embolization. Segment 2 and 3 are again relatively spared with relati ve hypertrophy. No discrete intrahepatic ductal dilation. SPLEEN: Normal size. No focal lesions. PANCREAS: No masses. No significant calcifications. No adjacent inflammation or peripancreatic fluid collections. Pancreatic duct not dilated. GALLBLADDER: Nondistended. ADRENAL GLANDS: No significant masses or asymmetry. RIGHT KIDNEY AND URETER: No solid masses. No significant calcifications. No hydronephrosis or hyd roureter. LEFT KIDNEY AND URETER: No solid masses. No significant calcifications. No hydronephrosis or hydr oureter. AORTA AND VESSELS: No aneurysm. No dissection. Renal arteries, SMA, celiac without stenosis. RETROPERITONEUM: No retroperitoneal adenopathy, hemorrhage or masses. BOWEL AND PERITONEAL CAVITY: No evidence of intestinal obstruction. Evidence of prior distal colonic resection. No focal bowel wall thickening. APPENDIX: Not clearly visualized. PELVIS: No mass. No free fluid. Normal bladder. ABDOMINAL WALL: No masses. No hernias. BONES: No significant or acute findings. OTHER: No other significant finding. IMPRESSION: 1. Grossly stable appearance of the bulky heterogeneous masses within the right hepatic lobe and segment 4 compatible with metastatic disease. Again seen is relative sparing of the segmen ts 2 and 3 with relative hypertrophy. 2. No other evidence of new intra-abdominal/ pelvic metastatic disease. TECHNICAL DOCUMENTATION: JOB ID: [id number] Quality ID # 436: Final reports with documentation of one or more dose reduction techniques (e.g., Au tomated exposure control, adjustment of the mA and/or kV according to patient size, use of iterative reconstruction technique) 2010 [employer]- All Rights Reserved Reading location - IP/workstation name: [email or web address]
== END ==
LOC: RAD 07:22
PROVIDERS: ATTEND Internal Medicine
DX: C20 Malignant neoplasm of rectum (principal)
CPT/HCPCS: 71260; 74177; 82565

== ENCOUNTER → 2019-04-16 | Outpatient (CLI) | payer MEDICAID ==
--- NOTE | 2019-04-16 10:27 | RADIOLOGY REPORT (SQ) ---
EXAM DESCRIPTION: CT CHEST WITH; CT ABD/PELVIS WITH IV ORAL COMPLETED DATE/TIME: 04/16/2019 10:02 am; 04/16/2019 10:00 am REASON FOR STUDY: (C20)MALIGNANT NEOPLASM OF RECTUM C20 MALIGNANT NEOPLASM OF RECTUM CONTRAST TYPE AND DOSE: contrast/concentration: Isovue 350.00 mg/ml; Total Contrast Delivered: 96.0 ml; Total Saline Delivered: 71.0 ml RENAL FUNCTION: 0.7 COMPARISON: None. TECHNIQUE: CT scan of the chest performed using helical scanning technique with dynamic intravenous contrast injection. Images reviewed with lung, soft tissue and bone windows. Reconstructed coronal a nd sagittal MPR images reviewed. All images stored on PACS. All CT scanners at this facility use dose modulation, iterative reconstruction, and/or weight based d osing when appropriate to reduce radiation dose to as low as reasonably achievable (ALARA). [facility]: Dose Right [facility]: CareDose [facility]: Dose Right [facility]: Teradose 4D [facility]: [employer] RADIATION DOSE: CT Rad equipment meets quality standard of care and radiation dose reduction techniq ues were employed. CTDIvol: 6.0 - 6.1 mGy. DLP: 1052 mGy-cm. . LIMITATIONS: None. FINDINGS: AXILLAE: No adenopathy. CHEST WALL: No masses. No subcutaneous air. LUNGS: Scarring in the right apex. No suspicious nodules. PLEURA: No effusions. No calcifications. THYROID: No masses or significant asymmetry. HILAR AND MEDIASTINAL STRUCTURES: No identified masses or abnormal nodes. AORTA AND GREAT VESSELS: No aneurysm. No dissection. PULMONARY ARTERIES: No identified pulmonary emboli. Study not optimized for the pulmonary arteries. HEART: No pericardial effusion. HARDWARE AND LIFELINES: None. BONES: No significant finding. OTHER: No other significant finding. IMPRESSION: No evidence of metastatic disease in the chest. COMPARISON: None. RADIATION DOSE: CT Rad equipment meets quality standard of care and radiation dose reduction techniq ues were employed. CTDIvol: 6.0 - 6.1 mGy. DLP: 1052 mGy-cm. mGy. TECHNIQUE: CT scan of the abdomen and pelvis performed with intravenous and oral contrast using jey rosamaria scanning technique with dynamic intravenous contrast injection. Images reviewed with lung, soft tissue and bone windows. Reconstructed coronal and sagittal MPR images reviewed. Delayed images for evaluation of the urinary system also acquired and evaluated. All images stored on PACS. All CT scanners at this facility use dose modulation, iterative reconstruction, and/or weight based d osing when appropriate to reduce radiation dose to as low as reasonably achievable (ALARA). [facility]: Dose Right [facility]: [employer] [facility]: Dose Right [facility]: Teradose 4D [facility]: [employer] FINDINGS: LIVER: Diffuse metastatic disease is again noted throughout the liver. Largest lesion in the right lobe is measured at 8.3 cm. Previously this measured 12 cm. Dominant lesion near the falc iform ligament measures 4.2 cm compared to 7.4 cm on prior study. SPLEEN: Normal size. No focal lesions. PANCREAS: No masses. No significant calcifications. No adjacent inflammation or peripancreatic flui d collections. Pancreatic duct not dilated. GALLBLADDER: No identified stones by CT criteria. No inflammatory changes to suggest cholecystitis. ADRENAL GLANDS: No significant masses or asymmetry. RIGHT KIDNEY AND URETER: No solid masses. No significant calcifications. No hydronephrosis or hyd roureter. LEFT KIDNEY AND URETER: No solid masses. No significant calcifications. No hydronephrosis or hydr oureter. AORTA AND VESSELS: No aneurysm. No dissection. Renal arteries, SMA, celiac without stenosis. RETROPERITONEUM: No retroperitoneal adenopathy, hemorrhage or masses. LARGE AND SMALL BOWEL: No dilatation. No masses. No wall thickening. Postsurgical changes in the r ectum. APPENDIX: Surgically absent. ABDOMINAL WALL: No hernia or masses. PERITONEAL CAVITY: No free air. No free fluid. No peritoneal implants or masses. PELVIS: No mass or free fluid. Normal bladder. BONES: No significant or acute findings. OTHER: No other significant finding. IMPRESSION: Metastatic lesions throughout the liver have decreased in size since prior exam. No oth er significant interval change. TECHNICAL DOCUMENTATION: JOB ID: [id number] Quality ID # 436: Final reports with documentation of one or more dose reduction techniques (e.g., Au tomated exposure control, adjustment of the mA and/or kV according to patient size, use of iterative reconstruction technique) 2010 [employer]- All Rights Reserved Reading location - IP/workstation name: [email or web address]
== END ==
LOC: RAD 09:06
PROVIDERS: ATTEND Physician Assistant Medical
DX: C20 Malignant neoplasm of rectum (principal); C78.7 Secondary malignant neoplasm of liver and intrahepatic bile duct
CPT/HCPCS: 71260; 74177; 82565

== ENCOUNTER → 2019-05-06 | Outpatient (CLI) | payer MEDICAID ==
--- NOTE | 2019-05-08 17:39 | RADIOLOGY REPORT (SQ) ---
EXAM DESCRIPTION: PET CT SKULL/THIGH COMPLETED DATE/TIME: 05/06/2019 6:05 pm REASON FOR STUDY: RECTAL CANCER C20 MALIGNANT NEOPLASM OF RECTUM COMPARISON: PET-CT 12/17/2016 Bone scan 09/30/2018 CT chest abdomen pelvis 01/10/2019, 04/16/2019 RADIONUCLIDE AND DOSE: 11.5 mCi F18 FDG The route of agent administration: Intravenous FASTING BLOOD SUGAR: 94 mg/dl CONTRAST TYPE AND DOSE: No CT contrast given. TECHNIQUE: Blood glucose level was verified. Above dose of FDG was injected intravenously. 2-D seg mented attenuation correction images were obtained from the base of the skull to the midthighs. Nonc ontrast CT images were obtained for attenuation correction and fusion with emission images. CT image s were performed without oral or intravenous contrast and are not sensitive for parenchymal lesions. A series of overlapping emission PET images were obtained. Images reviewed and manipulated at [facility] work station by the radiologist. Images stored on PACS. LIMITATIONS: None. FINDINGS: HEAD AND NECK: No areas of abnormal metabolic activity in the soft tissues of the head and neck. CHEST: No areas of abnormal metabolic activity in the chest. ABDOMEN AND PELVIS: The entire right lobe liver is replaced with metabolically active tumor with SUV 7.6 to 7.8. Overall area of involvement measures about 10 this is similar compared to CT exam 2018 cm transverse by 16 cm AP. Masses in the liver are slightly smaller than on CT exam 01/10/2019. PROXIMAL LOWER EXTREMITIES: No areas of abnormal metabolic activity in the soft tissues of the lower extremities. BONES: No abnormal metabolic activity in the visualized skeleton. ADDITIONAL CT FINDINGS: Right-sided permanent central line tip superior vena cava. OTHER: Liver background activity 2.2 SUV. Blood pool background activity 1.5 SUV. IMPRESSION: Persistent hypermetabolic metastatic disease involving nearly the entire right lobe live r. Disease is similar compared to CT exam 04/06/2019, slightly less extensive as compared to CT 019 TECHNICAL DOCUMENTATION: JOB ID: [id number] [employer]- All Rights Reserved Reading location - IP/workstation name: [email or web address]
== END ==
LOC: RAD 11:13
PROVIDERS: ATTEND Internal Medicine
DX: C20 Malignant neoplasm of rectum (principal); C78.7 Secondary malignant neoplasm of liver and intrahepatic bile duct
CPT/HCPCS: 78815; A9552

== ENCOUNTER 2019-09-10 07:41 | Outpatient (CLI) | payer MEDICAID ==
[~2019-09-10 07:41] MED LIST changes: +ATROPINE SULFATE INJ 0.4 MG/1 ML VIAL IV PRN; +ATROPINE SULFATE INJ 1 MG/1 ML VIAL IV PRN; -DEXAMETHASONE 10 MG in NS 50 ML IV PRN; +DEXAMETHASONE SOD PHOSPHATE IV PRN; -DEXTROSE 5% IV PRN; -DEXTROSE 5%-WATER 250 ML IV PRN; +DIPHENHYDRAMINE HCL 50 MG in NORMAL SALINE 50 ML IV PRN; +FAMOTIDINE/PF 20 MG in NORMAL SALINE 50 ML IV PRN; +IRINOTECAN HCL IV PRN; +NORMAL SALINE 250 ML IV PRN; +NORMAL SALINE IV PRN; -OXALIPLATIN IV PRN; +PALONOSETRON 0.25 MG/5 ML SDV IV PRN; -PALONOSETRON 0.25 MG/5 ML VIAL IV PRN; +PANITUMUMAB IV PRN; -WATER IV PRN
[2019-09-10 07:54] VITALS: BP 130/90
[2019-09-10] MEDS ORDERED: LEUCOVORIN CALCIUM IV PRN (08:06)
[2019-09-10] MEDS ORDERED: NORMAL SALINE IV PRN (08:06)
== END 2019-09-10 13:28 | disposition home or self-care (01) ==
LOC: II 07:41 → 5TH 07:59 → II 13:28
PROVIDERS: ATTEND Internal Medicine
DX: Z51.11 Encounter for antineoplastic chemotherapy (principal); C20 Malignant neoplasm of rectum
CPT/HCPCS: 96411; 96413; 96415; 96416; 96367; 96368; 96375; 96417; J0461; J0640 ×2; J1200; J3490 ×2; J9190; J9206; J7050 ×2; J7040; S0028; J1100; J9303 ×2; J2469; J1642

== ENCOUNTER → 2019-11-07 | Outpatient (CLI) | payer MEDICAID ==
--- NOTE | 2019-11-07 10:36 | RADIOLOGY REPORT (SQ) ---
EXAM DESCRIPTION: CT CHEST WITH IMAGES COMPLETED DATE/TIME: 11/07/2019 9:17 am REASON FOR STUDY: RECTAL CANCER C20 MALIGNANT NEOPLASM OF RECTUM COMPARISON: CT of the chest with contrast from 04/16/2019. TECHNIQUE: CT scan of the chest performed using helical scanning technique with dynamic intravenous contrast injection. Images reviewed with lung, soft tissue and bone windows. Reconstructed coronal and sagittal MPR and MIP images reviewed. All images stored on PACS. All CT scanners at this facility use dose modulation, iterative reconstruction, and/or weight based d osing when appropriate to reduce radiation dose to as low as reasonably achievable (ALARA). [facility]: Dose Right [facility]: CareDose [facility]: Dose Right [facility]: Teradose 4D [facility]: Jack Erwin CONTRAST TYPE AND DOSE: 90 mL Omnipaque 350- low osmolar. RENAL FUNCTION: Creatinine 0.6 milligrams/deciliter. LIMITATIONS: None. FINDINGS: LUNGS AND PLEURA: The trachea and main bronchi are patent. There are multiple less than 5 mm nodules scattered throughout both lungs that are stable in size and number compared to the prior CT - for reference refer to images 33, 39, 42, and 57 of series 6. There is no acute consolidation, ground-glass opacification, pleural effusion or pneumothorax. HILAR AND MEDIASTINAL STRUCTURES: No adenopathy or mass. HEART AND VASCULAR STRUCTURES: Atherosclerotic calcification of the coronary arteries and thoracic ao rta. There is no thoracic aortic dissection or aneurysm. There is no cardiomegaly or pericardial ef fusion. HARDWARE: The tip of the right IJ single-lumen port terminates within the SVC. UPPER ABDOMEN: Refer to the separate report of the CT of the abdomen. THYROID AND OTHER SOFT TISSUES: No mass or adenopathy. BONES: No fracture or osseous lesion. OTHER: No other finding. IMPRESSION: No acute cardiopulmonary process. TECHNICAL DOCUMENTATION: JOB ID: [id number] Quality ID # [id number]: Final reports with documentation of one or more dose reduction techniques (e.g., Au tomated exposure control, adjustment of the mA and/or kV according to patient size, use of iterative reconstruction technique) 2010 [employer]- All Rights Reserved Reading location - IP/workstation name: [email or web address]
--- NOTE | 2019-11-07 10:51 | RADIOLOGY REPORT (SQ) ---
EXAM DESCRIPTION: CT ABD/PELVIS WITH IV ORAL IMAGES COMPLETED DATE/TIME: 11/07/2019 9:16 am REASON FOR STUDY: RECTAL CANCER C20 MALIGNANT NEOPLASM OF RECTUM COMPARISON: CT of the abdomen and pelvis with contrast from 04/16/2019. TECHNIQUE: CT scan of the abdomen and pelvis performed using helical scanning technique with dynamic intravenous contrast injection. No oral contrast. Images reviewed with lung, soft tissue, and bone windows. Reconstructed coronal and sagittal MPR images reviewed. Delayed images for evaluation of the urinary system also acquired. All images stored on PACS. All CT scanners at this facility use dose modulation, iterative reconstruction, and/or weight based d osing when appropriate to reduce radiation dose to as low as reasonably achievable (ALARA). [facility]: Dose Right [facility]: CareDose [facility]: Dose Right [facility]: Teradose 4D [facility]: [employer] CONTRAST TYPE AND DOSE: Contrast/concentration: Isovue mg/ml; Total Contrast Delivered: 90.0 ml; To jorge Saline Delivered: 70.0 ml RENAL FUNCTION: GFR > 60. RADIATION DOSE: CT Rad equipment meets quality standard of care and radiation dose reduction techniq ues were employed. CTDIvol: 5.1 - 5.4 mGy. DLP: 847 mGy-cm. LIMITATIONS: None. FINDINGS: LOWER CHEST: Refer separate report of the CT of the chest. LIVER: Multifocal heterogeneous metastases throughout the right hepatic lobe intermixed with areas of amorphous hyperdensity - has the patient undergone prior TACE with lipiodol? Compared to the CT fro m 04/16/2019, the metastatic lesions have decreased in size ; for reference the lesion in the posteri or aspect of the right hepatic lobe (image 25 of series 3) measures 7.3 x 5.3 cm compared to 8 x 6.5 cm. The portal veins are patent. The degree of dilatation of the intrahepatic bile ducts (in partic ular within segments 4) has increased and the patient has undergone placement of a left-sided interna l external biliary drainage catheter ; the distal loop of the catheter is located within the lumen of the duodenum. SPLEEN: No splenomegaly or splenic mass. PANCREAS: No acute abnormality of the pancreas. GALLBLADDER: No abnormality that is apparent on CT. ADRENAL GLANDS: No mass or asymmetry. RIGHT KIDNEY AND URETER: No solid masses. No calcifications. No hydronephrosis or hydroureter. LEFT KIDNEY AND URETER: No solid masses. No calcifications. No hydronephrosis or hydroureter. AORTA AND VESSELS: No aneurysm or dissection of the abdominal aorta. RETROPERITONEUM: No retroperitoneal adenopathy, hemorrhage or mass. BOWEL AND PERITONEAL CAVITY: Status post anal resection with creation of an anastomosis in the pelvis . The ill-defined tissue in the presacral space is unchanged. There is no bowel obstruction, bowel wall thickening or pericolonic/ perienteric inflammation. There is no mesenteric adenopathy, free in traperitoneal fluid or mesenteric/ omental inflammation. APPENDIX: Surgically absent. PELVIS: The prostate gland is contracted and thick walled. The prostate gland measures 4.5 cm in tra nsverse diameter. ABDOMINAL WALL: No mass or hernia. BONES: No acute findings. OTHER: Findings as detailed above IMPRESSION: 1. Interim decrease in the size of the multifocal heterogeneous hepatic metastases as de tailed above. 2. Interim placement of a left-sided internal external biliary drainage catheter and interim increase in the degree of dilatation of the intrahepatic bile ducts. TECHNICAL DOCUMENTATION: JOB ID: [id number] Quality ID # [id number]: Final reports with documentation of one or more dose reduction techniques (e.g., Au tomated exposure control, adjustment of the mA and/or kV according to patient size, use of iterative reconstruction technique) 2010 [employer]- All Rights Reserved Reading location - IP/workstation name: [email or web address]
== END ==
LOC: RAD 08:40
PROVIDERS: ATTEND Physician Assistant Medical
DX: C20 Malignant neoplasm of rectum (principal); C78.7 Secondary malignant neoplasm of liver and intrahepatic bile duct
CPT/HCPCS: 71260; 74177; 82565

== ENCOUNTER 2019-12-10 07:49 | Emergency (ER) | payer MEDICARE, MEDICAID ==
[2019-12-10] MEDS ORDERED: HYDROMORPHONE HCL INJ/PF 2 MG/ML AMPULE IV ONE ×2 (07:58→12:45)
--- NOTE | 2019-12-10 08:03 | ER Document Report ---
ED General - General Stated Complaint: TUBE PROBLEM Time Seen by Provider: 12/10/19 07:52 Primary Care Provider: ROME WOODARD PA-C [ALLIED HEALTH PROFESSIONAL] - Follow up as needed Notes: 59-year-old male with recurrent and metastatic rectal cancer, notably to the liver, status post percutaneous drain in [place] about 4 months ago presents with bile leakage around the drain. This happened this morning and has been continuous. He has increasing pain in the epigastric region from baseline but no fevers or chills. No nausea or vomiting. Per Dr. Gloria brwon the patient underwent surgery by Dr. Chen and subsequently had chemotherapy. He had a recent recurrence that was in his liver blocking her bile ducts and went to [place] for a percutaneous biliary drain. At this time he is pending liver directed radiation therapy and is not on chemotherapy. TRAVEL OUTSIDE OF THE [place] IN LAST 30 DAYS: No - Related Data Allergies/Adverse Reactions: acetaminophen Allergy (Verified 12/10/19 08:48) diphenhydramine [From Aleve PM] Adverse Reaction (Unknown, Verified 12/10/19 08:48) DIAPHORESIS naproxen [From Aleve PM] Adverse Reaction (Unknown, Verified 12/10/19 08:48) DIAPHORESIS codeine Adverse Reaction (Verified 12/10/19 08:48) Generalized rash Past Medical History - General Information source: Patient - Social History Smoking Status: Former Smoker Family History: Malignancy - Past Medical History Cardiac Medical History: Denies: Hx Coronary Artery Disease, Hx Heart Attack, Hx Hypertension Pulmonary Medical History: Reports: Hx COPD Denies: Hx Asthma, Hx Bronchitis, Hx Pneumonia Neurological Medical History: Denies: Hx Cerebrovascular Accident, Hx Seizures Renal/ Medical History: Denies: Hx Peritoneal Dialysis Malignancy Medical History: Reports Hx Colorectal Cancer GI Medical History: Denies: Hx Crohn's Disease, Hx Gastroesophageal Reflux Disease, Hx Hiatal Hernia, Hx Irritable Bowel, Hx Liver Failure, Hx Pancreatitis, Hx Ulcer Musculoskeletal Medical History: Reports Hx Arthritis Past Surgical History: Reports: Hx Appendectomy - 1971, Hx Vascular Surgery - Port placement, Other - Colon resection. Denies: Hx Bowel Surgery, Hx Cholecystectomy, Hx Colostomy, Hx Coronary Artery Bypass Graft, Hx Gastric Bypass Surgery, Hx Herniorrhaphy, Hx Pacemaker, Hx Tonsillectomy - Immunizations Hx Diphtheria, Pertussis, Tetanus Vaccination: No Review of Systems - Review of Systems Notes: REVIEW OF SYSTEMS GEN: Denies fever, chills, weight loss ENT: Denies sore throat, nasal discharge, ear pain EYES: Denies blurry vision, eye pain, discharge CV: Denies chest pain, palpitations, edema RESP: Denies cough, shortness of breath, wheezing GI: Abdominal pain biliary leakage a MSK: Denies joint pain/swelling, edema, SKIN: Denies rash, skin lesions LYMPH: Denies swollen glands/lymph nodes NEURO: Denies headache, focal weakness or numbness, dizziness PSYCH: Denies depression, suicidal or homicidal ideation PHYSICAL EXAMINATION General: Very thin and chronically ill-appearing but no acute distress Head: Atraumatic, normocephalic ENT: Mouth normal, oropharynx moist, no exudates or tonsillar enlargement Eyes: Conjunctiva normal, pupils equal, lids normal Neck: No JVD, supple, no guarding CVS: Normal rate, regular rhythm, no murmurs Resp: No resp distress, equal and normal breath sounds bilaterally GI: Nondistended, soft, epigastric tenderness. Right upper quadrant tenderness. Biliary drain in the epigastrium is sutured in place, but there is bile soaking the dressing and actively oozing from the stoma. Ext: No deformities, no edema, normal range of motion in upper and lower ext Back: No CVA or midline TTP Skin: No rash, warm Lymphatic: No lymphadeopathy noted Neuro: Awake, alert. Face symmetric. GCS 15. Physical Exam - Vital signs Vitals: Resp 18 12/10/19 08:01 Course - Re-evaluation Re-evalutation: 12/10/19 11:08 Patient presents with leakage around biliary drain in setting of bili obstruction secondary to metastatic rectal cancer Afebrile with no rigors generally quite well-appearing Labs and imaging will be done Differential includes leak around tube leak into broken tube, or intraperitoneal bile leak Patient's labs show a doubling of his alk phos but no other significant findings except for a mildly elevated lactate without a white count Is likely secondary dehydration. Given fluids and pain medicine Send cultures but holding on antibiotics for now Imaging as discussed with radiology and and the read shows reappearance of biliary dilatation but no free bile in the belly. I discussed with radiologist on the phone he says that this probably leakage along the tract. I am going to open the drain and attempt to place into a sterile bag to decompress. I discussed with radiology and is not that equipment or staff here to perform a drain switch. The patient was accepted by the nurse practitioner at [facility] on the hospitalist service. - Vital Signs Vital signs: Temp Pulse Resp BP Pulse Ox 98.4 F 84 14 109/85 97 12/10/19 08:24 12/10/19 08:24 12/10/19 09:01 12/10/19 09:00 12/10/19 09:01 - Laboratory Result Diagrams: 12/10/19 08:13 12/10/19 08:13 Laboratory results interpreted by me: 12/10/19 12/10/19 12/10/19 08:13 08:13 09:38 RBC 3.63 L Hgb 12.1 L Hct 36.8 L MCV 101 H RDW 17.6 H Sodium 135.7 L Potassium 3.4 L Creatinine 0.48 L Glucose 133 H Lactic Acid 2.4 H Total Bilirubin 2.5 H Direct Bilirubin 1.3 H Alkaline Phosphatase 1076 H Albumin 3.3 L - Diagnostic Test Radiology reviewed: Image reviewed, Reports reviewed Discharge - Discharge Clinical Impression: Dilation of biliary tract Biliary drain displacement Qualifiers: Encounter type: initial encounter Qualified Code(s): T85.520A - Displacement of bile duct prosthesis, initial encounter Condition: Good Disposition: [facility] Referrals: ROME WOODARD PA-C [ALLIED HEALTH PROFESSIONAL] - Follow up as needed
[2019-12-10 08:35] LABS: ABSOLUTE EOSINOPHILS # (AUTO) 0.1 10^3/uL (0.0-0.6); ABSOLUTE LYMPHOCYTES (AUTO) 1.4 10^3/uL (0.5-4.7); ABSOLUTE MONOCYTES (AUTO) 0.5 10^3/uL (0.1-1.4); ABSOLUTE NEUT (AUTO) 3.5 10^3/uL (1.7-8.2); BASOPHILS % (AUTO) 0.6 % (0-2); EOSINOPHILS % (AUTO) 1.2 % (0-6); HEMATOCRIT 36.8 % (37.9-51.0); HEMOGLOBIN 12.1 g/dL (13.5-17.0); LYMPHOCYTES % (AUTO) 25.2 % (13-45); MEAN CORPUSCULAR HEMOGLOBIN 33.4 pg (27.0-33.4); MEAN CORPUSCULAR VOLUME 101 fl (80-97); MONOCYTES % (AUTO) 9.5 % (3-13); PLATELET COUNT 240 10^3/uL (150-450); RED BLOOD COUNT 3.63 10^6/uL (4.35-5.55); RED CELL DISTRIBUTION WIDTH 17.6 % (11.5-14.0); SEGMENTED NEUTROPHILS % (AUTO) 63.5 % (42-78); TOTAL CELLS COUNTED % (AUTO) 100 %; WHITE BLOOD COUNT 5.5 10^3/uL (4.0-10.5)
[2019-12-10 08:55] LABS: ALBUMIN 3.3 g/dL (3.5-5.0); ALKALINE PHOSPHATASE 1076 U/L (38-126); ANION GAP 8 (5-19); ASPARTATE AMINO TRANSFERASE 38 U/L (17-59); BILIRUBIN,DIRECT 1.3 mg/dL (0.0-0.4); BILIRUBIN,TOTAL 2.5 mg/dL (0.2-1.3); BLOOD UREA NITROGEN 8 mg/dL (7-20); CALCIUM 8.8 mg/dL (8.4-10.2); CARBON DIOXIDE 23 mmol/L (22-30); CHLORIDE 105 mmol/L (98-107); GLUCOSE 133 mg/dL (75-110); POTASSIUM 3.4 mmol/L (3.6-5.0); TOTAL PROTEIN 6.9 g/dL (6.3-8.2)
--- NOTE | 2019-12-10 10:12 | RADIOLOGY REPORT (SQ) ---
EXAM DESCRIPTION: CT ABD/PELVIS WITH IV ONLY IMAGES COMPLETED DATE/TIME: 12/10/2019 9:27 am REASON FOR STUDY: biliary drain leakage around tube-bile leak? COMPARISON: 09/29/2018 TECHNIQUE: CT scan of the abdomen and pelvis performed using helical scanning technique with dynamic intravenous contrast injection. No oral contrast. Images reviewed with lung, soft tissue, and bone windows. Reconstructed coronal and sagittal MPR images reviewed. Delayed images for evaluation of the urinary system also acquired. All images stored on PACS. All CT scanners at this facility use dose modulation, iterative reconstruction, and/or weight based d osing when appropriate to reduce radiation dose to as low as reasonably achievable (ALARA). [facility]: Dose Right [facility]: CareDose [facility]: Dose Right [facility]: Teradose 4D [facility]: StreamSpec CONTRAST TYPE AND DOSE: contrast/concentration: Isovue 350.00 mmol/ml; Total Contrast Delivered: 90. 0 ml; Total Saline Delivered: 70.0 ml RENAL FUNCTION: Creatinine 0.48 RADIATION DOSE: CT Rad equipment meets quality standard of care and radiation dose reduction techniq ues were employed. CTDIvol: 5.4 - 7.0 mGy. DLP: 728 mGy-cm.. LIMITATIONS: None. FINDINGS: LOWER CHEST: No significant findings. No nodules or infiltrates. LIVER: Interval decrease in size of previously seen heterogeneous hypodense masses predominantly invo lving the right hepatic lobe. Multifocal areas of increased attenuation possibly calcifications vers us embolic agent from prior intervention. There is a left approach percutaneous internal external bi liary drainage catheter in expected location. With some intrahepatic biliary ductal dilation noted a nomaly involving segments 2, 3 and 4. SPLEEN: Normal size. No focal lesions. PANCREAS: No masses. No significant calcifications. No adjacent inflammation or peripancreatic fluid collections. Pancreatic duct not dilated. GALLBLADDER: Decompressed. No radiopaque stones. ADRENAL GLANDS: No significant masses or asymmetry. RIGHT KIDNEY AND URETER: No solid masses. No significant calcifications. No hydronephrosis or hyd roureter. LEFT KIDNEY AND URETER: No solid masses. No significant calcifications. No hydronephrosis or hydr oureter. AORTA AND VESSELS: No aneurysm. No dissection. Renal arteries, SMA, celiac without stenosis. RETROPERITONEUM: No retroperitoneal adenopathy, hemorrhage or masses. BOWEL AND PERITONEAL CAVITY: No evidence of intestinal obstruction. No focal bowel wall thickening. Pigtail intrahepatic extrahepatic biliary drainage catheter tip within the duodenum. Evidence of di stal bowel resection with anastomotic chain staple line within the rectosigmoid junction. APPENDIX: Not readily identified. PELVIS: Decompressed urinary bladder with circumferential wall thickening. No pelvic free fluid, pos tsurgical changes within the pelvis with stable presacral soft tissue thickening. ABDOMINAL WALL: Tiny fat containing umbilical hernia. No subcutaneous masses. BONES: No acute bony abnormality. No discrete lytic or blastic osseous lesions. OTHER: No other significant finding. IMPRESSION: 1. Left approach percutaneous internal external biliary drainage catheter in place. Pr oximal side hole marker likely within the CBD. New intrahepatic biliary ductal dilation suggestive o f catheter malfunction, possibly secondary to clogged or lack of sideholes within the left hepatic lo be. 2. Post treatment change with decreased size of previously seen multiple predominantly right hepatic lobe hypodense masses compatible with malignancy. 3. Additional chronic findings as above. Case discussed with Dr. Garza at 1005 hours on 12/10/2019 TECHNICAL DOCUMENTATION: JOB ID: [id number] Quality ID # [id number]: Final reports with documentation of one or more dose reduction techniques (e.g., Au tomated exposure control, adjustment of the mA and/or kV according to patient size, use of iterative reconstruction technique) 2010 [employer]- All Rights Reserved Reading location - IP/workstation name: [email or web address]
[2019-12-10] MEDS: RINGERS SOLUTION,LACTATED 1,000 ML IV PRN ×2 (10:47→11:43)
[2019-12-10 19:28] VITALS: BP 106/73
--- NOTE | 2019-12-10 20:13 | ER Document Report ---
Doctor's Note Notes: 12/10/19 20:12 Care of this patient was turned over to me during the course of my shift. In short he was awaiting transfer to [facility] for a blocked biliary drain in a patient with rectal cancer. He was stable throughout the course of his stay. He is now stable for transport to [facility].
== END 2019-12-10 20:05 | disposition short-term general hospital (02) ==
LOC: ER 07:49
DX: T85.520A Displacement of bile duct prosthesis, initial encounter (principal); R10.13 Epigastric pain; C20 Malignant neoplasm of rectum; C78.7 Secondary malignant neoplasm of liver and intrahepatic bile duct; Z88.8 Allergy status to other drugs, medicaments and biological substances; Z87.891 Personal history of nicotine dependence; J44.9 Chronic obstructive pulmonary disease, unspecified
CPT/HCPCS: 96376; 99285; 96361; 96374; 36415; 87040; 83605; 83690; 85025; 80076; 80048; 74177; J1170; J7120

== ENCOUNTER 2020-01-07 16:46 | Emergency (ER) | payer MEDICARE, MEDICAID ==
[2020-01-07] MEDS ORDERED: RINGERS SOLUTION,LACTATED 1,000 ML IV ONE ×3 (17:23→19:45)
--- NOTE | 2020-01-07 17:25 | RADIOLOGY REPORT (SQ) ---
EXAM DESCRIPTION: CHEST SINGLE VIEW IMAGES COMPLETED DATE/TIME: 01/07/2020 5:15 pm REASON FOR STUDY: SOB COMPARISON: 09/29/2018 EXAM PARAMETERS: NUMBER OF VIEWS: One view. TECHNIQUE: Single frontal radiographic view of the chest acquired. RADIATION DOSE: NA LIMITATIONS: None. FINDINGS: LUNGS AND PLEURA: Hyperexpansion of the lungs. No infiltrate, effusion, or mass. MEDIASTINUM AND HILAR STRUCTURES: No masses. Contour normal. HEART AND VASCULAR STRUCTURES: Heart normal in size. Normal vasculature. BONES: No acute findings. HARDWARE: Injection port on the right. OTHER: No other significant finding. IMPRESSION: Chronic lung changes with no acute cardiopulmonary findings. TECHNICAL DOCUMENTATION: JOB ID: [id number] 2010 [employer]- All Rights Reserved Reading location - IP/workstation name: [email or web address]
[2020-01-07 17:59] LABS: ABSOLUTE LYMPHOCYTES (AUTO) 0.8 10^3/uL (0.5-4.7); ABSOLUTE NEUT (AUTO) 4.5 10^3/uL (1.7-8.2); BASOPHILS % (AUTO) 0.6 % (0-2); EOSINOPHILS % (AUTO) 0.2 % (0-6); HEMATOCRIT 36.7 % (37.9-51.0); HEMOGLOBIN 11.5 g/dL (13.5-17.0); LYMPHOCYTES % (AUTO) 15.4 % (13-45); MEAN CORPUSCULAR HEMOGLOBIN 31.5 pg (27.0-33.4); MEAN CORPUSCULAR HGB CONC 31.2 g/dL (32.0-36.0); MEAN CORPUSCULAR VOLUME 101 fl (80-97); MONOCYTES % (AUTO) 0.5 % (3-13); PLATELET COUNT 220 10^3/uL (150-450); RED BLOOD COUNT 3.64 10^6/uL (4.35-5.55); RED CELL DISTRIBUTION WIDTH 18.7 % (11.5-14.0); SEGMENTED NEUTROPHILS % (AUTO) 83.3 % (42-78); TOTAL CELLS COUNTED % (AUTO) 100 %; WHITE BLOOD COUNT 5.4 10^3/uL (4.0-10.5)
[2020-01-07 18:00] LABS: ALBUMIN 3.2 g/dL (3.5-5.0); ALKALINE PHOSPHATASE 300 U/L (38-126); ANION GAP 16 (5-19); ASPARTATE AMINO TRANSFERASE 41 U/L (17-59); BILIRUBIN,TOTAL 3.1 mg/dL (0.2-1.3); BLOOD UREA NITROGEN 7 mg/dL (7-20); CALCIUM 8.9 mg/dL (8.4-10.2); CARBON DIOXIDE 19 mmol/L (22-30); CHLORIDE 99 mmol/L (98-107); GLUCOSE 125 mg/dL (75-110); POTASSIUM 3.9 mmol/L (3.6-5.0); TOTAL PROTEIN 7.3 g/dL (6.3-8.2)
[2020-01-07] MEDS ORDERED: VANCOMYCIN HCL INJ 1000 MG VIAL IV ONE (18:23)
--- NOTE | 2020-01-07 18:30 | EKG REPORT ---
SEVERITY:- ABNORMAL ECG - SINUS TACHYCARDIA VENTRICULAR PREMATURE COMPLEX CONSIDER RVH W/ SECONDARY REPOL ABNORMALITY ST DEPRESSION, CONSIDER ISCHEMIA, DIFFUSE LDS PROLONGED QT INTERVAL : Confirmed by: Zuhair Cuadra MD 07-Jan-2020 18:29:36
--- NOTE | 2020-01-07 18:31 | ER Document Report ---
Entered by LUCIO WHITT SCRIBE 01/07/20 1704 Acting as scribe for:ROGERIO BENNETT DO ED General - General Chief Complaint: Dizziness Stated Complaint: DIZZINESS Primary Care Provider: CARISSA PFEIFFER MD [Primary Care Provider] - Follow up as needed Mode of Arrival: Medic Information source: Patient, Emergency Med Personnel Notes: This 59 year old male patient, currently receiving chemotherapy for liver cancer, presents to the ED today via EMS with complaints of dizziness since yesterday. Patient reports associated nausea, poor appetite, and chills. No fev er. EMS reports that upon their arrival, the patient had a heart rate of 160 bpm, seated BP of 88/58 (standing 64/40), and an oral temperature of 100.2. They administered 2000 ml LR and started a Levophed gtt at 4 mcg/min for approximately x10 minutes until the patient's vital signs were stable. Patient mentions that he has been tested x4 times for COVID, last time was a week ago, all with negative results. TRAVEL OUTSIDE OF THE [place] IN LAST 30 DAYS: No - Related Data Allergies/Adverse Reactions: acetaminophen Allergy (Verified 12/10/19 08:48) diphenhydramine [From Aleve PM] Adverse Reaction (Unknown, Verified 12/10/19 08: 48) DIAPHORESIS naproxen [From Aleve PM] Adverse Reaction (Unknown, Verified 12/10/19 08:48) DIAPHORESIS codeine Adverse Reaction (Verified 12/10/19 08:48) Generalized rash Past Medical History - General Information source: [facility] Records - Social History Smoking Status: Unknown if Ever Smoked Smoking Education Provided: No Family History: Reviewed & Not Pertinent, Malignancy Patient has suicidal ideation: No Patient has homicidal ideation: No - Past Medical History Cardiac Medical History: Reports: Hx Congestive Heart Failure, Hx Hypertension Pulmonary Medical History: Reports: Hx COPD Malignancy Medical History: Reports Hx Colorectal Cancer, Reports Hx Liver Cancer Musculoskeletal Medical History: Reports Hx Arthritis Past Surgical History: Reports: Hx Appendectomy - 1971, Hx Vascular Surgery - Port placement, Other - Colon resection - Immunizations Hx Diphtheria, Pertussis, Tetanus Vaccination: No Review of Systems - Review of Systems Constitutional: See HPI, Chills. denies: Fever EENT: No symptoms reported Cardiovascular: See HPI, Dizziness Respiratory: No symptoms reported Gastrointestinal: See HPI, Nausea, Poor appetite Genitourinary: No symptoms reported Male Genitourinary: No symptoms reported Musculoskeletal: No symptoms reported Skin: No symptoms reported Hematologic/Lymphatic: No symptoms reported Neurological/Psychological: No symptoms reported -: Yes All other systems reviewed and negative Physical Exam - Vital signs Vitals: Temp 98.5 F 01/07/20 16:46 - General General appearance: Other - Chronically ill appearing, appears older than stated age - HEENT Head: Normocephalic, Atraumatic Eyes: Normal Extraocular movements intact: Yes Pupils: PERRL Mucous membranes: Dry Neck: Supple. No: Lymphadenopathy - Respiratory Respiratory status: No respiratory distress Chest status: Nontender Breath sounds: Normal Chest palpation: Normal - Cardiovascular Rhythm: Regular Heart sounds: Normal auscultation Murmur: No Friction rub: No Gallop: None auscultated - Abdominal Inspection: Other - Clear catheter noted in midline which has appearence of biliary drain. Distension: No distension Bowel sounds: Normal Tenderness: Nontender - Abdomen soft Organomegaly: No organomegaly - Back Back: Normal, Nontender - Extremities General upper extremity: Normal inspection General lower extremity: Normal inspection. No: Edema - Neurological Neuro grossly intact: Yes Orientation: AAOx4 [place] Coma Scale Eye Opening: Spontaneous [place] Coma Scale Verbal: Oriented Carley Coma Scale Motor: Obeys Commands Carley Coma Scale Total: 15 - Psychological Associated symptoms: Normal affect, Normal mood - Skin Skin Temperature: Warm Skin Moisture: Dry Skin Color: Normal. negative: Jaundiced Course - Re-evaluation Re-evalutation: 01/07/20 20:38 MDM I have discussed the pt in detail [facility] she has graciously agreed to accept the pt in transfer to [place]. He has been aggressively treated here with IVF and antibiotics and Fluid recussitation as well as pressors. I have just spoken to the flight crew reagarding the pt's morbidities and treatment and they are in the process of loading him for transfer. 01/07/20 21:50 He screens negative for Covid here as he recently was tested for this - last week at [facility] - and assures me of no travel or exposure - "I only go the hospital and go home." lives at home with him. No cough. Dizzy and weak feeling since yesterday. - Vital Signs Vital signs: Temp Pulse Resp BP Pulse Ox 98.7 F 23 H 94/68 L 99 01/07/20 20:40 01/07/20 20:50 01/07/20 20:50 01/07/20 20:50 - Laboratory Result Diagrams: 01/07/20 16:05 01/07/20 16:05 Laboratory results interpreted by me: 01/07/20 01/07/20 01/07/20 16:05 16:05 17:08 RBC 3.64 L Hgb 11.5 L Hct 36.7 L MCV 101 H MCHC 31.2 L RDW 18.7 H [place] % (Auto) 0.5 L Absolute Monos (auto) 0.0 L Seg Neutrophils % 83.3 H Sodium 133.5 L Carbon Dioxide 19 L Glucose 125 H Lactic Acid 8.9 H Total Bilirubin 3.1 H Direct Bilirubin 2.0 H Alkaline Phosphatase 300 H Albumin 3.2 L Lipase 10.4 L Urine Protein Urine Blood Urine Bilirubin Urine Urobilinogen 01/07/20 17:11 RBC Hgb Hct MCV MCHC RDW [place] % (Auto) Absolute Monos (auto) Seg Neutrophils % Sodium Carbon Dioxide Glucose Lactic Acid Total Bilirubin Direct Bilirubin Alkaline Phosphatase Albumin Lipase Urine Protein 100 H Urine Blood SMALL H Urine Bilirubin SMALL H Urine Urobilinogen 4.0 H - Diagnostic Test Radiology reviewed: Image reviewed, Reports reviewed - EKG Interpretation by Me EKG shows normal: Sinus rhythm Rate: Tachycardia Rhythm: NSR - Sinus Tachy RBBB 124 BPM Repolarization abnormality without st elevation. Change from Previous. Critical Care Note - Critical Care Note Total time excluding time spent on procedures (mins): 45 Discharge - Discharge Clinical Impression: Metastatic adenocarcinoma Sepsis Qualifiers: Sepsis type: sepsis due to unspecified organism Sepsis acute organ dysfunction status: with acute organ dysfunction Severe sepsis acute organ dysfunction type: unspecified Severe sepsis shock status: unspecified Qualified Code(s): A41.9 - Sepsis, unspecified organism Condition: Critical Disposition: [facility] Referrals: CARISSA PFEIFFER MD [Primary Care Provider] - Follow up as needed I personally performed the services described in the documentation, reviewed and edited the documentation which was dictated to the scribe in my presence, and it accurately records my words and actions.
[2020-01-07] MEDS ORDERED: DEXTROSE 5%-WATER 250 ML with NOREPINEPHRINE BITARTRATE 4 MG IV PRN ×2 (18:32)
[2020-01-07] MEDS ORDERED: NOREPINEPHRINE BITARTRATE INJ/PF 4 MG/4 ML SDV IV ONE (18:55)
[2020-01-07] MEDS ORDERED: ERTAPENEM SODIUM INJ 1 GM VIAL ONE (20:38)
[2020-01-07] MEDS: ERTAPENEM SODIUM INJ 1 GM VIAL IV ONE ×2 (20:38→20:43)
[2020-01-07 20:56] VITALS: BP 94/68
[2020-01-07 21:19] LABS: APPEARANCE,URINE SLIGHTLY-CLOUDY; BILIRUBIN,URINE SMALL (NEGATIVE); COLOR,URINE AMBER; GLUCOSE, URINE NEGATIVE (NEGATIVE); KETONES,URINE NEGATIVE (NEGATIVE); LEUKOCYTE ESTERASE,URINE NEGATIVE (NEGATIVE); NITRITE,URINE NEGATIVE (NEGATIVE); PROTEIN,URINE 100 mg/dL (NEGATIVE); URINE SPECIFIC GRAVITY 1.015
== END 2020-01-07 21:12 | disposition short-term general hospital (02) ==
LOC: ER 16:46
DX: A41.9 Sepsis, unspecified organism (principal); R65.20 Severe sepsis without septic shock; C22.8 Malignant neoplasm of liver, primary, unspecified as to type; C79.9 Secondary malignant neoplasm of unspecified site; R42 Dizziness and giddiness; R11.0 Nausea; R68.83 Chills (without fever); R63.0 Anorexia; I10 Essential (primary) hypertension; I45.10 Unspecified right bundle-branch block; Z79.899 Other long term (current) drug therapy; Z88.8 Allergy status to other drugs, medicaments and biological substances; Z85.048 Personal history of other malignant neoplasm of rectum, rectosigmoid junction, and anus
CPT/HCPCS: 93005; 99291; 96361; 96365; 96368; 36415; 87040; 83605; 83690; 83735; 85025; 87077; 80053; 81001; 84484; 87186; 87150 ×26; 71045; 93010; J3490; J7060; J7120; J3370; J1335

== ENCOUNTER 2020-04-11 14:29 | Observation (INO) | payer MEDICARE, MEDICAID ==
--- NOTE | 2020-04-11 15:33 | ER Document Report ---
ED General - General Chief Complaint: General Weakness Stated Complaint: POSSIBLE SEPSIS Time Seen by Provider: 04/11/20 14:36 Primary Care Provider: CARISSA PFEIFFER MD [Primary Care Provider] - Follow up as needed Notes: This 60-year-old man presents to the emergency department with a history of liver cancer and notes a history of generalized weakness with poor appetite over the past week. He has been drinking fluids, however EMS is called after the fall today and the patient was found to be weak and tachycardic. He was given IV fluids in route. Patient states that he feels somewhat better now, however, he is weak. He has some tenderness on the lateral aspect of the left shoulder and in the neck area. The patient has good range of motion denies severe pain. He denies loss of consciousness or head injury. TRAVEL OUTSIDE OF THE [place] IN LAST 30 DAYS: No - Related Data Allergies/Adverse Reactions: acetaminophen Allergy (Verified 12/10/19 08:48) diphenhydramine [From Aleve PM] Adverse Reaction (Unknown, Verified 12/10/19 08:48) DIAPHORESIS naproxen [From Aleve PM] Adverse Reaction (Unknown, Verified 12/10/19 08:48) DIAPHORESIS codeine Adverse Reaction (Verified 12/10/19 08:48) Generalized rash Past Medical History - Social History Smoking Status: Former Smoker Frequency of alcohol use: None Drug Abuse: None Family History: Reviewed & Not Pertinent, Malignancy - Past Medical History Cardiac Medical History: Reports: Hx Congestive Heart Failure, Hx Hypertension Denies: Hx Coronary Artery Disease, Hx Heart Attack Pulmonary Medical History: Reports: Hx COPD Denies: Hx Asthma, Hx Bronchitis, Hx Pneumonia Neurological Medical History: Denies: Hx Cerebrovascular Accident, Hx Seizures Renal/ Medical History: Denies: Hx Peritoneal Dialysis Malignancy Medical History: Reports Hx Colorectal Cancer, Reports Hx Liver Cancer GI Medical History: Denies: Hx Crohn's Disease, Hx Gastroesophageal Reflux Disease, Hx Hiatal Hernia, Hx Irritable Bowel, Hx Liver Failure, Hx Pancreatitis, Hx Ulcer Musculoskeletal Medical History: Reports Hx Arthritis Past Surgical History: Reports: Hx Appendectomy - 1971, Hx Vascular Surgery - Port placement, Other - Colon resection. Denies: Hx Bowel Surgery, Hx Cholecystectomy, Hx Colostomy, Hx Coronary Artery Bypass Graft, Hx Gastric Bypass Surgery, Hx Herniorrhaphy, Hx Pacemaker, Hx Tonsillectomy - Immunizations Hx Diphtheria, Pertussis, Tetanus Vaccination: No Review of Systems - Review of Systems Notes: Constitutional: See HPI HENT: Negative for sore throat. Eyes: Negative for visual changes. Cardiovascular: Negative for chest pain. Respiratory: Negative for shortness of breath. Gastrointestinal: Negative for abdominal pain, vomiting or diarrhea. Genitourinary: Negative for dysuria. Musculoskeletal: Negative for back pain. Skin: Negative for rash. Neurological: See HPI 10 point ROS negative except as marked above and in HPI. Physical Exam - Vital signs Vitals: Temp 98.2 F 04/11/20 14:40 - Notes Notes: PHYSICAL EXAMINATION: Physical Exam: General: Chronically ill-appearing 60-year-old man in no acute distress HEENT: NC/AT, temporal wasting, pupils equal round and reactive to light, MM moist,nares clear, oropharynx clear, airway patent Neck: supple, no adenopathy, no masses. + Tenderness in the paracervical muscle group right side, good range of motion Lungs: clear, no wheezing, no rales no rhonchi CVS: Regular rate and rhythm no murmur gallop or rub Abdomen: Soft, active, nontender, no masses, no hepatosplenomegaly Ext: Tenderness over the deltoid left shoulder region, no bruising, no deformity, no crepitus good range of motion Neuro: Alert and responsive, moving all 4 extremities on command, cranial nerves intact, no focal findings Skin: Intact no open lesions, no rash PSYCH: Normal mood, normal affect. Course - Re-evaluation Re-evalutation: 04/11/20 15:33 Cachectic 60-year-old male who is weak and poor intake over the past week. Has been in the bed for the past few days and today fell in an attempt to get to the bathroom. Clinically he appears to be dry with history of hepatic metastasis and a percutaneous biliary drainage catheter. Patient has continued to be a full code and evaluation today is reflective of progressive hepatic metastasis with a large feeling defect extending from the liver into the suprahepatic IVC, concerning for tumor thrombus. He also has a barely area of biliary ductal dilatation pneumobilia at the gallbladder and common bile duct. He has developed moderate amount of ascites since the last CT scan in January 2020. Patient also has associated anasarca and small bilateral pleural effusions. 04/11/20 19:14 I have spoken with the oncologist on-call, given that we do not have gastroenterology operations accountant and the suggested that the patient to be transferred for GI intervention. [facility] was contacted, the transfer center notes that they are on diversion for patients except STEMI, CVA, pediatric and trauma. I have informed the patient that presently his condition is too complex for admission at [facility] and [facility] has no bed capacity. I have contacted [facility] transfer center and am awaiting a discussion with the sustainable products marketing manager. 04/11/20 20:03 The pathologist at [facility] called back, after reviewing the findings of the CT scan and the medical history as we know it, it is felt that this patient's pathology has progressed to the point that he is not a candidate for intervention regarding his liver condition. It is felt that the patient is a candidate for comfort care and hospice. I have had a discussion with the patient regarding his present status and after further discussion he has decided he does not want to be intubated or have aggressive intervention. He is now a DNR. I have spoken with Dr. Atwood, she states that the patient could be admitted to [facility] for fluids and comfort measures and tomorrow oncology will see the patient to assist in setting up a hospice plan. The hospitalist was contacted, , he will admit the patient to the hospital. - Vital Signs Vital signs: Temp Pulse Resp BP Pulse Ox 98.0 F 25 H 143/91 H 100 04/11/20 16:01 04/11/20 16:01 04/11/20 16:00 04/11/20 16:01 - Laboratory Result Diagrams: 04/11/20 14:02 04/11/20 14:02 Laboratory results interpreted by me: 04/11/20 04/11/20 04/11/20 14:02 14:02 14:51 RBC 2.99 L Hgb 10.0 L Hct 31.4 L MCV 105 H MCHC 31.7 L RDW 20.4 H Plt Count 106 L Band Neutrophils % 1 L Sodium 133.1 L Carbon Dioxide 18 L Lactic Acid 5.4 H Calcium 8.2 L Total Bilirubin 6.4 H Direct Bilirubin 4.9 H AST 81 H Alkaline Phosphatase 441 H Albumin 2.6 L Urine Protein Urine Ketones Urine Bilirubin Urine Urobilinogen 04/11/20 16:20 RBC Hgb Hct MCV MCHC RDW Plt Count Band Neutrophils % Sodium Carbon Dioxide Lactic Acid Calcium Total Bilirubin Direct Bilirubin AST Alkaline Phosphatase Albumin Urine Protein 30 H Urine Ketones TRACE H Urine Bilirubin MODERATE H Urine Urobilinogen 4.0 H - Diagnostic Test Radiology reviewed: Image reviewed, Reports reviewed Radiology results interpreted by me: 04/11/20 18:55 Abdomen/Pelvis CT 04/11/20 17:15 IMPRESSION: 1. Progression of hepatic metastases. Periportal adenopathy. Nodular contour of the liver, may be secondary to metastatic disease versus cirrhosis. 2. Large filling defect extending from the liver into the suprahepatic IVC, concerning for tumor thrombus. 3. Mild biliary ductal dilation. Redemonstration of left approach percutaneous internal external biliary drainage catheter. Pneumobilia at the gallbladder and common bile duct. 4. Interval development of moderate amount of ascites. 5. Diffuse wall thickening at the ascending colon, suggestive of colitis. 6. Anasarca. 7. Small bilateral pleural effusions. Ground-glass opacities within the adjacent bilateral lower lobes, may be secondary to atelectasis or pneumonia. 04/11/20 20:07 Chest x-ray: Bilateral pleural effusions, groundglass opacities within the adjacent bilateral lower lobes. Discharge - Discharge Clinical Impression: Liver metastasis, Elevated bilirubin, Dilated bile duct, Anasarca Colon cancer Qualifiers: Colon location: unspecified part of colon Qualified Code(s): C18.9 - Malignant neoplasm of colon, unspecified Condition: Fair Disposition: ADMITTED INPATIENT Unit Admitted: Medical Floor Referrals: CARISSA PFEIFFER MD [Primary Care Provider] - Follow up as needed
[2020-04-11] MEDS ORDERED: NORMAL SALINE 1000 ML 1,000 ML IV ONE ×2 (15:35→17:11)
[2020-04-11 16:10] LABS: ALBUMIN 2.6 g/dL (3.5-5.0); ALKALINE PHOSPHATASE 441 U/L (38-126); ANION GAP 15 (5-19); ASPARTATE AMINO TRANSFERASE 81 U/L (17-59); BILIRUBIN,DIRECT 4.9 mg/dL (0.0-0.4); BILIRUBIN,TOTAL 6.4 mg/dL (0.2-1.3); BLOOD UREA NITROGEN 10 mg/dL (7-20); CALCIUM 8.2 mg/dL (8.4-10.2); CARBON DIOXIDE 18 mmol/L (22-30); CHLORIDE 100 mmol/L (98-107); GLUCOSE 92 mg/dL (75-110); POTASSIUM 4.3 mmol/L (3.6-5.0); TOTAL PROTEIN 6.6 g/dL (6.3-8.2)
[2020-04-11 16:11] LABS: HEMATOCRIT 31.4 % (37.9-51.0); MEAN CORPUSCULAR HEMOGLOBIN 33.3 pg (27.0-33.4); MEAN CORPUSCULAR HGB CONC 31.7 g/dL (32.0-36.0); MEAN CORPUSCULAR VOLUME 105 fl (80-97); PLATELET COUNT 106 10^3/uL (150-450); RED BLOOD COUNT 2.99 10^6/uL (4.35-5.55); RED CELL DISTRIBUTION WIDTH 20.4 % (11.5-14.0); WHITE BLOOD COUNT 9.9 10^3/uL (4.0-10.5)
[2020-04-11 16:29] LABS: ABSOLUTE LYMPHOCYTES# (MANUAL) 1.5 10^3/uL (0.5-4.7); ABSOLUTE MONOCYTES # (MANUAL) 0.6 10^3/uL (0.1-1.4); BAND NEUTROPHILS % (MANUAL) 1 % (3-5); BASOPHILS % (MANUAL) 0 % (0-2); EOSINOPHILS % (MANUAL) 1 % (0-6); LYMPHOCYTES % (MANUAL) 15 % (13-45); MONOCYTES % (MANUAL) 6 % (3-13); SEGMENTED NEUTROPHILS % (MAN) 77 % (42-78); TOTAL CELLS COUNTED 100
[2020-04-11 16:30] LABS: ANISOCYTOSIS 2+; PLATELET COMMENT DECREASED
[2020-04-11 16:51] LABS: APPEARANCE,URINE SLIGHTLY-CLOUDY; BILIRUBIN,URINE MODERATE (NEGATIVE); COLOR,URINE AMBER; GLUCOSE, URINE NEGATIVE (NEGATIVE); KETONES,URINE TRACE mg/dL (NEGATIVE); PROTEIN,URINE 30 mg/dL (NEGATIVE); URINE SPECIFIC GRAVITY 1.019
--- NOTE | 2020-04-11 18:08 | EKG REPORT ---
SEVERITY:- NORMAL ECG - SINUS RHYTHM DIFFUSE ISCHEMIA MULTIPLE LEADS : Confirmed by: Valdemar Cast MD 11-Apr-2020 18:07:49
--- NOTE | 2020-04-11 18:26 | RADIOLOGY REPORT (SQ) ---
EXAM DESCRIPTION: CT ABD/PELVIS WITH IV ONLY IMAGES COMPLETED DATE/TIME: 04/11/2020 5:48 pm REASON FOR STUDY: Liver cancer/biliary stent COMPARISON: CT abdomen and pelvis 12/10/2019. TECHNIQUE: CT scan of the abdomen and pelvis performed using helical scanning technique with dynamic intravenous contrast injection. No oral contrast. Images reviewed with lung, soft tissue, and bone windows. Reconstructed coronal and sagittal MPR images reviewed. Delayed images for evaluation of the urinary system also acquired. All images stored on PACS. All CT scanners at this facility use dose modulation, iterative reconstruction, and/or weight based d osing when appropriate to reduce radiation dose to as low as reasonably achievable (ALARA). [facility]: Dose Right [facility]: CareDose [facility]: Dose Right [facility]: Teradose 4D [facility]: Juvent [employer] CONTRAST TYPE AND DOSE: contrast/concentration: Isovue 350.00 mmol/ml; Total Contrast Delivered: 84. 0 ml; Total Saline Delivered: 44.0 ml RENAL FUNCTION: Creatinine 0.66 RADIATION DOSE: CT Rad equipment meets quality standard of care and radiation dose reduction techniq ues were employed. CTDIvol: 6.7 - 9.3 mGy. DLP: 953 mGy-cm.. LIMITATIONS: None. FINDINGS: LOWER CHEST: There are small bilateral pleural effusions with adjacent ground-glass opacit ies at the bilateral lower lobes. LIVER: There is nodular contour of the liver with hypertrophy of the left hepatic lobe and caudate lo be. Interval progression of metastatic disease with development of multiple new lesions within the l eft hepatic lobe and at the caudate lobe. Redemonstration of metastatic lesions at the right hepatic lobe and multifocal areas of increased attenuation at the right hepatic lobe, may be secondary to rosamaria cifications or prior embolization. There is mild intrahepatic biliary ductal dilation. Redemonstration of left approach percutaneous internal external biliary drainage catheter. There is periportal adenopathy measuring 1.7 cm in short axis. SPLEEN: Normal size. No focal lesions. PANCREAS: No significant calcifications. No adjacent inflammation or peripancreatic fluid collections . Pancreatic duct not dilated. GALLBLADDER: There is pneumobilia at the gallbladder and the common bile duct. ADRENAL GLANDS: No significant masses or asymmetry. RIGHT KIDNEY AND URETER: No solid masses. No significant calcifications. No hydronephrosis or hyd roureter. LEFT KIDNEY AND URETER: No solid masses. No significant calcifications. No hydronephrosis or hydr oureter. AORTA AND VESSELS: Atherosclerotic calcifications the abdomen with interest. No abdominal aortic ane urysm or acute dissection. There is a large filling defect extending from the liver into the suprahe patic IVC, measuring approximately 4.6 cm craniocaudally. RETROPERITONEUM: No retroperitoneal hemorrhage or masses. BOWEL AND PERITONEAL CAVITY: Interval development of moderate amount of ascites. No dilated bowel lo ops to suggest obstruction. There is diffuse wall thickening at the ascending colon. Postsurgical c hanges are noted at the rectum. APPENDIX: Surgically absent. PELVIS: The urinary bladder is decompressed. No pelvic mass. Moderate amount of free fluid. ABDOMINAL WALL: There is diffuse soft tissue edema. There is a small fat containing umbilical hernia . BONES: Mild degenerative changes are noted at the spine. IMPRESSION: 1. Progression of hepatic metastases. Periportal adenopathy. Nodular contour of the li levi, may be secondary to metastatic disease versus cirrhosis. 2. Large filling defect extending from the liver into the suprahepatic IVC, concerning for tumor thro mbus. 3. Mild biliary ductal dilation. Redemonstration of left approach percutaneous internal external andria iary drainage catheter. Pneumobilia at the gallbladder and common bile duct. 4. Interval development of moderate amount of ascites. 5. Diffuse wall thickening at the ascending colon, suggestive of colitis. 6. Anasarca. 7. Small bilateral pleural effusions. Ground-glass opacities within the adjacent bilateral lower lo bes, may be secondary to atelectasis or pneumonia. TECHNICAL DOCUMENTATION: JOB ID: [id number] Quality ID # [id number]: Final reports with documentation of one or more dose reduction techniques (e.g., Au tomated exposure control, adjustment of the mA and/or kV according to patient size, use of iterative reconstruction technique) 2010 [email or web address]- All Rights Reserved Reading location - IP/workstation name: [email or web address]
--- NOTE | 2020-04-11 19:31 | RADIOLOGY REPORT (SQ) ---
EXAM DESCRIPTION: CHEST SINGLE VIEW IMAGES COMPLETED DATE/TIME: 04/11/2020 7:19 pm REASON FOR STUDY: Bilateral pleural effusions COMPARISON: CT abdomen and pelvis 04/11/2020. Chest x-ray 01/07/2020. EXAM PARAMETERS: NUMBER OF VIEWS: One view. TECHNIQUE: Single frontal portable upright radiographic view of the chest acquired. RADIATION DOSE: NA LIMITATIONS: None. FINDINGS: LUNGS AND PLEURA: No consolidation, sizeable pleural effusion or pneumothorax is identifi ed. The small bilateral pleural effusions and bibasilar ground-glass opacities described on earlier CT abdomen and pelvis are not resolved by single portable view. MEDIASTINUM AND HILAR STRUCTURES: No masses. Contour normal. HEART AND VASCULAR STRUCTURES: Heart normal in size. Normal vasculature. BONES: No acute findings. HARDWARE: There is a right-sided Port-A-Cath with the tip overlying the region of the SVC. IMPRESSION: No acute radiographic finding in the chest on single view. Please note that the small b ilateral pleural effusions and bibasilar ground-glass opacities described on earlier CT abdomen and p felton are not resolved by single portable view. Follow-up with PA and lateral views as clinically wa rranted. TECHNICAL DOCUMENTATION: JOB ID: [id number] 2010 [employer]- All Rights Reserved Reading location - IP/workstation name: [email or web address]
[2020-04-11] MEDS ORDERED: HYDROMORPHONE HCL INJ/PF 2 MG/ML AMPULE IV ONE (20:30)
[2020-04-11] MEDS ORDERED: ONDANSETRON HCL INJ/PF 4 MG/2 ML SDV IV ONE (20:30)
[2020-04-11] MEDS ORDERED: ONDANSETRON HCL INJ/PF 4 MG/2 ML SDV IV PRN (20:49)
--- NOTE | 2020-04-11 21:55 | PDOC H&P ---
History of Present Illness Admission Date/PCP: 04/11/20 20:14 CARISSA PFEIFFER MD Patient complains of: Generalized weakness, fall History of Present Illness: DAMASO HICKS is a 60 year old male with a history of colonic cancer s/p resection in 2018 and recurrence with metastasis to liver s/p biliary stent placement and for which he was on chemotherapy the last cycle being 2 weeks back now presents to ER after he had a fall this morning while he was trying to get to the bathroom. He states that for the past 2 to 3 days he had decreased appetite and has not been able to eat. He also felt very weak and fatigued. This morning while he was trying to get to the bathroom he felt lightheaded and fell to the floor but denies loss of consciousness or head injury. He states that he had 3 episodes of watery diarrhea for the past 2 days but denies nausea or vomiting. He reports that he does not have the energy to get up and he called EMS and was brought to the ED. Since arrival to the ER he has received 2 L of IV fluid and reports interval improvement in his dizziness. At the ED the initial plan was to transfer him to a higher level of care but after reviewing his chart and discussion with his oncologist, at this point it appears that the disease is far advanced and the recommendation was hospice/palliative care. This was discussed with the patient and patient understands the prognosis and agrees to be enrolled for hospice care with the a plan for oncology and palliative care team to see him in the morning. Past Medical History Cardiac Medical History: Reports: Congestive Heart Failure, Hypertension Denies: Coronary Artery Disease, Myocardial Infarction Pulmonary Medical History: Reports: Chronic Obstructive Pulmonary Disease (COPD) Denies: Asthma, Bronchitis, Pneumonia Neurological Medical History: Denies: Seizures Malignancy Medical History: Reports: Colorectal Cancer, Liver Cancer GI Medical History: Denies: Crohn's Disease, Gastroesophageal Reflux Disease, Hiatal Hernia Musculoskeltal Medical History: Reports: Arthritis Hematology: Reports: Anemia, Bleeding Tendencies Past Surgical History Past Surgical History: Reports: Appendectomy - 1971, Vascular Surgery - Port placement, Other - Colon resection Denies: Cholecystectomy, Colostomy, Coronary Artery Bypass Graft, Gastric Bypass Surgery, Herniorrhaphy, Pacemaker, Tonsillectomy Social History Information Source: Patient Lives with: Family Smoking Status: Former Smoker Frequency of Alcohol Use: None Hx Recreational Drug Use: No Drugs: None Hx Prescription Drug Abuse: No - Advance Directive Resuscitation Status: Full Code Family History Family History: Reviewed & Not Pertinent, Malignancy Parental Family History Reviewed: Yes Children Family History Reviewed: Yes Sibling(s) Family History Reviewed.: Yes Medication/Allergy Home Medications: Oxycodone HCl [Oxy-Ir 5 mg Tablet] 5 mg PO Q6HP PRN 04/12/20 Potassium Chloride [Klor-Con 10 Meq Tablet ER] 20 meq PO BID 04/12/20 Allergies/Adverse Reactions: acetaminophen Allergy (Verified 12/10/19 08:48) diphenhydramine [From Aleve PM] Adverse Reaction (Unknown, Verified 12/10/19 08:48) DIAPHORESIS naproxen [From Aleve PM] Adverse Reaction (Unknown, Verified 12/10/19 08:48) DIAPHORESIS codeine Adverse Reaction (Verified 12/10/19 08:48) Generalized rash Review of Systems Constitutional: PRESENT: as per HPI Eyes: ABSENT: visual disturbances Ears: ABSENT: hearing changes Nose, Mouth, and Throat: PRESENT: as per HPI Cardiovascular: PRESENT: dyspnea on exertion, edema. ABSENT: chest pain, orthropnea, palpitations Respiratory: PRESENT: cough. ABSENT: hemoptysis, sputum Gastrointestinal: PRESENT: as per HPI Genitourinary: ABSENT: dysuria, hematuria Musculoskeletal: ABSENT: joint swelling Integumentary: ABSENT: rash, wounds Neurological: ABSENT: abnormal gait, abnormal speech, confusion, focal weakness, syncope Psychiatric: ABSENT: anxiety, depression, homidical ideation, suicidal ideation Endocrine: ABSENT: cold intolerance, heat intolerance, polydipsia, polyuria Hematologic/Lymphatic: ABSENT: easy bleeding, easy bruising Physical Exam Vital Signs: Temp Pulse Resp BP Pulse Ox 98.0 F 25 H 143/91 H 100 04/11/20 16:01 04/11/20 16:01 04/11/20 16:00 04/11/20 16:01 Intake & Output 04/10/20 04/11/20 04/12/20 06:59 06:59 06:59 Intake Total 1999 Balance 1999 Weight 74.3 kg Additional comments: GENERAL APPEARANCE: Chronically sick looking, emaciated, alert and oriented x4 HEENT: Normocephalic and atraumatic. Has scleral icterus. Dry oral mucosa NECK: Supple. No lymphadenopathy or tenderness. No carotid bruit. No JVD CHEST: Symmetric. Nontender to palpation. LUNGS: Has good air entry bilaterally. No wheezing or crackles appreciated HEART: Regular rate and rhythm with normal S1 and S2. No murmurs, gallops, or rubs. ABDOMEN: Full, there is biliary stent drainage at supraumbilical area with the leakage around the tube. Normoactive bowel sound. Soft and nontender. Has shifting dullness. No mass or organomegaly was palpable. EXTREMITIES: Has grade 2 bilateral pitting edema MUSCULOSKELETAL: No deformity, atrophy or swelling noted PSYCHIATRIC: Recent and remote memory is intact. Appropriate mood and affect. SKIN: Warm, dry, and well perfused. No lesions or rashes are noted. NEUROLOGIC: No focal sensory or motor deficits are noted. Results Laboratory Results: 04/11/20 14:02 04/11/20 14:02 04/11/20 04/11/20 04/11/20 14:02 14:02 14:51 WBC 9.9 RBC 2.99 L Hgb 10.0 L Hct 31.4 L MCV 105 H MCH 33.3 MCHC 31.7 L RDW 20.4 H Plt Count 106 L Seg Neutrophils % Not Reportable Sodium 133.1 L Potassium 4.3 Chloride 100 Carbon Dioxide 18 L Anion Gap 15 BUN 10 Creatinine 0.66 Est GFR ( Amer) > 60 Glucose 92 Lactic Acid 5.4 H Calcium 8.2 L Total Bilirubin 6.4 H AST 81 H Alkaline Phosphatase 441 H Total Protein 6.6 Albumin 2.6 L Urine Color Urine Appearance Urine pH Ur Specific [place] Urine Protein Urine Glucose (UA) Urine Ketones Urine Blood Urine RBC (Auto) 04/11/20 16:20 WBC RBC Hgb Hct MCV MCH MCHC RDW Plt Count Seg Neutrophils % Sodium Potassium Chloride Carbon Dioxide Anion Gap BUN Creatinine Est GFR ( Amer) Glucose Lactic Acid Calcium Total Bilirubin AST Alkaline Phosphatase Total Protein Albumin Urine Color AVERY Urine Appearance SLIGHTLY-CLOUDY Urine pH 5.0 Ur Specific [place] 1.019 Urine Protein 30 H Urine Glucose (UA) NEGATIVE Urine Ketones TRACE H Urine Blood NEGATIVE Urine RBC (Auto) 1 Impressions: Abdomen/Pelvis CT 04/11/20 17:15 IMPRESSION: 1. Progression of hepatic metastases. Periportal adenopathy. Nodular contour of the liver, may be secondary to metastatic disease versus cirrhosis. 2. Large filling defect extending from the liver into the suprahepatic IVC, concerning for tumor thrombus. 3. Mild biliary ductal dilation. Redemonstration of left approach percutaneous internal external biliary drainage catheter. Pneumobilia at the gallbladder and common bile duct. 4. Interval development of moderate amount of ascites. 5. Diffuse wall thickening at the ascending colon, suggestive of colitis. 6. Anasarca. 7. Small bilateral pleural effusions. Ground-glass opacities within the adjacent bilateral lower lobes, may be secondary to atelectasis or pneumonia. Chest X-Ray 04/11/20 19:07 IMPRESSION: No acute radiographic finding in the chest on single view. Please note that the small bilateral pleural effusions and bibasilar ground-glass o pacities described on earlier CT abdomen and pelvis are not resolved by single portable view. Follow-up with PA and lateral views as clinically warranted. Assessment and Plan - Diagnosis (1) Colon cancer metastasized to liver Is this a current diagnosis for this admission?: Yes Plan: Patient was on palliative chemotherapy but has missed multiple appointments Per oncology, cancer is far advanced and recommended possible hospice care After discussion about his diagnosis, disease status and prognosis patient agrees to be enrolled in hospice care Will optimally control pain while inpatient Consult oncology and palliative care in the morning (2) Volume depletion Is this a current diagnosis for this admission?: Yes Plan: Patient presented with lightheadedness and an episode of fall On presentation blood pressure was soft will continue to hydrate patient with IV crystalloids (3) Fall Is this a current diagnosis for this admission?: Yes Plan: Likely due to orthostatic hypotension Continue IV hydration Consider physical therapy evaluation (4) Elevated lactic acid level Is this a current diagnosis for this admission?: Yes Plan: Likely due to hypotension from volume depletion Lactic acid level was 5.2, which has decreased from a week ago Has no clear sign or source of infection Continue IV hydration - Time Time Spent with patient: 35 or more minutes Total Critical Time (Minutes): 45 Medications reviewed and adjusted accordingly: Yes Anticipated Discharge Disposition: Home with Hospice Anticipated Discharge Timeframe: within 48 hours - Inpatient Certification Based on my medical assessment, after consideration of the patient's comorbidities, presenting symptoms, or acuity I expect that the services needed warrant INPATIENT care.: Yes I certify that my determination is in accordance with my understanding of Medicare's requirements for reasonable and necessary INPATIENT services [42 CFR 412.3e].: Yes Medical Necessity: Significant Comorbidiites Make Outpatient Treatment Too Risky, Need Close Monitoring Due to Risk of Patient Decompensation, Need For IV Fluids Post Hospital Care: D/C or Transfer Summary
[2020-04-11] MEDS: FAMOTIDINE 20 MG TABLET PO SCH (23:01)
[2020-04-11] MEDS: RINGERS SOLUTION,LACTATED 1,000 ML IV PRN (23:01)
[2020-04-12] MEDS: HYDROMORPHONE HCL INJ/PF 2 MG/ML AMPULE IV PRN ×5 (00:39→23:33)
[2020-04-12] MEDS: RINGERS SOLUTION,LACTATED 1,000 ML IV PRN ×2 (04:56→15:17)
--- NOTE | 2020-04-12 08:08 | PDOC CONSULTATION ---
Consultation Consult Date: 04/12/20 Attending physician:: MITUL MIMS Provider Consulted: CARISSA PFEIFFER Consult reason:: Stage IV colon cancer, here with weakness dehydration History of Present Illness Admission Date/PCP: 04/11/20 20:14 CARISSA PFEIFFER MD Patient complains of: Weakness, dehydration History of Present Illness: DAMASO HICKS is a 60 year old male with known history of stage IV colon cancer with progressive disease, most recently on third line chemotherapy. Unfortunately over the last month has not been able to receive chemo because of dehydration issues. We have been mostly hydrating him a few times a week. Ultimately over the weekend he became very weak and ultimately fell, and could not get up. He was brought in because of dehydration. Upon admission he was found to be with severe hyperbilirubinemia. Weakness, dehydration, hypotension, tachycardia. He is has been given some hydration over the last 24 hours and seems a little bit more awake and alert this morning. I had a long discussion with him this morning and he feels that his body is too weak to continue with treatment, we would agree with that, we would support hospice in the situation. However, we discussed what setting to do that in. And he is concerned about going home because his is his only family member, and she does have other medical issues along with weakness herself. He does not feel like she be able to care for him fully. Past Medical History Cardiac Medical History: Reports: Congestive Heart Failure, Hypertension Denies: Coronary Artery Disease, Myocardial Infarction Pulmonary Medical History: Reports: Chronic Obstructive Pulmonary Disease (COPD) Denies: Asthma, Bronchitis, Pneumonia Neurological Medical History: Denies: Seizures Malignancy Medical History: Reports: Colorectal Cancer, Liver Cancer GI Medical History: Denies: Crohn's Disease, Gastroesophageal Reflux Disease, Hiatal Hernia Musculoskeltal Medical History: Reports: Arthritis Psychiatric Medical History: Denies: Depression Hematology: Reports: Anemia, Bleeding Tendencies Past Surgical History Past Surgical History: Reports: Appendectomy - 1971, Vascular Surgery - Port placement, Other - Colon resection Denies: Cholecystectomy, Colostomy, Coronary Artery Bypass Graft, Gastric Bypass Surgery, Herniorrhaphy, Pacemaker, Tonsillectomy Social History Lives with: Family Smoking Status: Former Smoker Frequency of Alcohol Use: None Hx Recreational Drug Use: No Drugs: None Hx Prescription Drug Abuse: No - Advance Directive Resuscitation Status: Do Not Resuscitate Family History Family History: Reviewed & Not Pertinent, Malignancy Parental Family History Reviewed: Yes Children Family History Reviewed: Yes Sibling(s) Family History Reviewed.: Yes Medication/Allergy Home Medications: Oxycodone HCl [Oxy-Ir 5 mg Tablet] 5 mg PO Q6HP PRN 04/12/20 Potassium Chloride [Klor-Con 10 Meq Tablet ER] 20 meq PO BID 04/12/20 Allergies/Adverse Reactions: acetaminophen Allergy (Verified 12/10/19 08:48) diphenhydramine [From Aleve PM] Adverse Reaction (Unknown, Verified 12/10/19 08:48) DIAPHORESIS naproxen [From Aleve PM] Adverse Reaction (Unknown, Verified 12/10/19 08:48) DIAPHORESIS codeine Adverse Reaction (Verified 12/10/19 08:48) Generalized rash Review of Systems Constitutional: ABSENT: chills, fever(s), headache(s), weight gain, weight loss Eyes: ABSENT: visual disturbances Ears: ABSENT: hearing changes Cardiovascular: ABSENT: chest pain, dyspnea on exertion, edema, orthropnea, palpitations Respiratory: ABSENT: cough, hemoptysis Gastrointestinal: ABSENT: abdominal pain, constipation, diarrhea, hematemesis, hematochezia, nausea, vomiting Genitourinary: ABSENT: dysuria, hematuria Musculoskeletal: ABSENT: joint swelling Integumentary: ABSENT: rash, wounds Neurological: ABSENT: abnormal gait, abnormal speech, confusion, dizziness, focal weakness, syncope Psychiatric: ABSENT: anxiety, depression, homidical ideation, suicidal ideation Endocrine: ABSENT: cold intolerance, heat intolerance, polydipsia, polyuria Hematologic/Lymphatic: ABSENT: easy bleeding, easy bruising Physical Exam Vital Signs: Temp Pulse Resp BP Pulse Ox 97.7 F 85 16 103/67 95 04/11/20 22:22 04/11/20 22:22 04/11/20 22:22 04/11/20 22:22 04/11/20 22:22 Intake & Output 04/11/20 04/12/20 04/13/20 06:59 06:59 06:59 Intake Total 2740 Balance 2740 Weight 74.3 kg General appearance: PRESENT: no acute distress, well-developed, well-nourished Head exam: PRESENT: atraumatic, normocephalic Eye exam: PRESENT: conjunctiva pink, EOMI, PERRLA. ABSENT: scleral icterus Ear exam: PRESENT: normal external ear exam Mouth exam: PRESENT: moist, tongue midline Neck exam: ABSENT: carotid bruit, JVD, lymphadenopathy, thyromegaly Respiratory exam: PRESENT: clear to auscultation andria. ABSENT: rales, rhonchi, wheezes Cardiovascular exam: PRESENT: RRR. ABSENT: diastolic murmur, rubs, systolic murmur Pulses: PRESENT: normal dorsalis pedis pul Vascular exam: PRESENT: normal capillary refill GI/Abdominal exam: PRESENT: normal bowel sounds, soft. ABSENT: distended, guarding, mass, organolmegaly, rebound, tenderness Rectal exam: PRESENT: deferred Extremities exam: PRESENT: full ROM. ABSENT: calf tenderness, clubbing, pedal edema Neurological exam: PRESENT: alert, awake, oriented to person, oriented to place, oriented to time, oriented to situation, CN II-XII grossly intact. ABSENT: motor sensory deficit Psychiatric exam: PRESENT: appropriate affect, normal mood. ABSENT: homicidal ideation, suicidal ideation Skin exam: PRESENT: dry, intact, warm. ABSENT: cyanosis, rash Results Laboratory Results: 04/11/20 14:02 04/11/20 14:02 04/11/20 04/11/20 04/11/20 14:02 14:02 14:51 WBC 9.9 RBC 2.99 L Hgb 10.0 L Hct 31.4 L MCV 105 H MCH 33.3 MCHC 31.7 L RDW 20.4 H Plt Count 106 L Seg Neutrophils % Not Reportable Sodium 133.1 L Potassium 4.3 Chloride 100 Carbon Dioxide 18 L Anion Gap 15 BUN 10 Creatinine 0.66 Est GFR ( Amer) > 60 Glucose 92 Lactic Acid 5.4 H Calcium 8.2 L Total Bilirubin 6.4 H AST 81 H Alkaline Phosphatase 441 H Total Protein 6.6 Albumin 2.6 L Urine Color Urine Appearance Urine pH Ur Specific [place] Urine Protein Urine Glucose (UA) Urine Ketones Urine Blood Urine RBC (Auto) 04/11/20 04/11/20 16:20 23:59 WBC RBC Hgb Hct MCV MCH MCHC RDW Plt Count Seg Neutrophils % Sodium Potassium Chloride Carbon Dioxide Anion Gap BUN Creatinine Est GFR ( Amer) Glucose Lactic Acid 1.2 Calcium Total Bilirubin AST Alkaline Phosphatase Total Protein Albumin Urine Color AVERY Urine Appearance SLIGHTLY-CLOUDY Urine pH 5.0 Ur Specific [place] 1.019 Urine Protein 30 H Urine Glucose (UA) NEGATIVE Urine Ketones TRACE H Urine Blood NEGATIVE Urine RBC (Auto) 1 Impressions: Abdomen/Pelvis CT 04/11/20 17:15 IMPRESSION: 1. Progression of hepatic metastases. Periportal adenopathy. Nodular contour of the liver, may be secondary to metastatic disease versus cirrhosis. 2. Large filling defect extending from the liver into the suprahepatic IVC, concerning for tumor thrombus. 3. Mild biliary ductal dilation. Redemonstration of left approach percutaneous internal external biliary drainage catheter. Pneumobilia at the gallbladder and common bile duct. 4. Interval development of moderate amount of ascites. 5. Diffuse wall thickening at the ascending colon, suggestive of colitis. 6. Anasarca. 7. Small bilateral pleural effusions. Ground-glass opacities within the adjacent bilateral lower lobes, may be secondary to atelectasis or pneumonia. Chest X-Ray 04/11/20 19:07 IMPRESSION: No acute radiographic finding in the chest on single view. Please note that the small bilateral pleural effusions and bibasilar ground-glass opacities described on earlier CT abdomen and pelvis are not resolved by single portable view. Follow-up with PA and lateral views as clinically warranted. Status: Image reviewed by me Assessment & Plan - Diagnosis (1) Colon cancer metastasized to liver Is this a current diagnosis for this admission?: Yes Plan: Stage IV colon cancer, agree with comfort care approach. Possibilities may be home with hospice as long as caregivers could be introduced. Another possibility would be assisted [facility], along with hospice. I do not believe he is a candidate for inpatient hospice because his is not as imminent and he does not have other uncontrolled symptoms of pain. He is certainly a hospice candidate because his life expectancy is less than 6 months. I will discuss this with discharge planning team. - Time Time Spent: Greater than 70 Minutes
[2020-04-12] MEDS ORDERED: FUROSEMIDE INJ/PF 20 MG/2 ML SDV IV ONE (08:15)
[2020-04-12] MEDS: FAMOTIDINE 20 MG TABLET PO SCH ×2 (09:51→23:33)
[2020-04-12] MEDS ORDERED: LORAZEPAM 0.5 MG TABLET PO PRN (18:30)
--- NOTE | 2020-04-12 18:34 | PDOC PROGRESS REPORT ---
Subjective Date:: 04/12/20 Subjective:: Patient is doing well today. Discussed with him and he is opting for hospice ca re. States he has battled cancer for about 4 years now. Have discussed with social services analyst who is looking into arranging patient hospice. Reason For Visit: ADVANCED MEDTASTATIC COLON CANCER Physical Exam Vital Signs: Temp Pulse Resp BP Pulse Ox 97.5 F 82 17 100/70 97 04/12/20 18:19 04/12/20 18:19 04/12/20 18:19 04/12/20 18:19 04/12/20 18:19 Intake & Output 04/11/20 04/12/20 04/13/20 06:59 06:59 06:59 Intake Total 2740 1958 Output Total 1105 Balance 2740 853 Weight 74.3 kg General appearance: PRESENT: no acute distress, cooperative Neck exam: ABSENT: JVD Respiratory exam: PRESENT: unlabored Cardiovascular exam: PRESENT: +S1, +S2 GI/Abdominal exam: PRESENT: distended, soft Neurological exam: PRESENT: alert, awake, oriented to person, oriented to place, oriented to time, oriented to situation Psychiatric exam: PRESENT: normal mood. ABSENT: agitated, anxious Results Laboratory Results: 04/11/20 14:02 04/11/20 14:02 04/11/20 23:59 Lactic Acid 1.2 Impressions: Abdomen/Pelvis CT 04/11/20 17:15 IMPRESSION: 1. Progression of hepatic metastases. Periportal adenopathy. Nodular contour of the liver, may be secondary to metastatic disease versus cirrhosis. 2. Large filling defect extending from the liver into the suprahepatic IVC, concerning for tumor thrombus. 3. Mild biliary ductal dilation. Redemonstration of left approach percutaneous internal external biliary drainage catheter. Pneumobilia at the gallbladder and common bile duct. 4. Interval development of moderate amount of ascites. 5. Diffuse wall thickening at the ascending colon, suggestive of colitis. 6. Anasarca. 7. Small bilateral pleural effusions. Ground-glass opacities within the adjacent bilateral lower lobes, may be secondary to atelectasis or pneumonia. Chest X-Ray 04/11/20 19:07 IMPRESSION: No acute radiographic finding in the chest on single view. Please note that the small bilateral pleural effusions and bibasilar ground-glass opacities described on earlier CT abdomen and pelvis are not resolved by single portable view. Follow-up with PA and lateral views as clinically warranted. Assessment and Plan - Diagnosis (1) Colon cancer metastasized to liver Is this a current diagnosis for this admission?: Yes (2) Fall Is this a current diagnosis for this admission?: Yes (3) Volume depletion Is this a current diagnosis for this admission?: Yes (4) Weakness Is this a current diagnosis for this admission?: Yes - Plan Summary Summary: Plan is for hospice care. Continue with pain control. Patient has stage IV metastatic colon cancer. He has received adequate IV hydration at this point and I will go ahead and discontinue IV fluids. retail planner working on arranging patient's hospice. Patient prefers to go home on hospice. - Time Time Spent with patient: Less than 15 minutes Anticipated Discharge Disposition: Home with Hospice Anticipated Discharge Timeframe: within 24 hours
[2020-04-13] MEDS: HYDROMORPHONE HCL INJ/PF 2 MG/ML AMPULE IV PRN ×3 (04:45→17:29)
--- NOTE | 2020-04-13 07:48 | PDOC PROGRESS REPORT ---
Subjective Date:: 04/13/20 Subjective:: Pt doing a little better, d/c planning working on hospice plans. Pt comfortable this am Reason For Visit: ADVANCED MEDTASTATIC COLON CANCER Physical Exam Vital Signs: Temp Pulse Resp BP Pulse Ox 97.9 F 85 16 95/71 L 100 04/12/20 19:25 04/12/20 19:25 04/12/20 19:25 04/12/20 19:25 04/12/20 19:25 Intake & Output 04/12/20 04/13/20 04/14/20 06:59 06:59 06:59 Intake Total 2740 2958 Output Total 1305 Balance 2740 1653 Weight 74.3 kg 74.3 kg General appearance: PRESENT: no acute distress, well-developed, well-nourished Head exam: PRESENT: atraumatic, normocephalic Eye exam: PRESENT: conjunctiva pink, EOMI, PERRLA. ABSENT: scleral icterus Ear exam: PRESENT: normal external ear exam Mouth exam: PRESENT: moist, tongue midline Neck exam: ABSENT: carotid bruit, JVD, lymphadenopathy, thyromegaly Respiratory exam: PRESENT: clear to auscultation andria. ABSENT: rales, rhonchi, wheezes Cardiovascular exam: PRESENT: RRR. ABSENT: diastolic murmur, rubs, systolic murmur Pulses: PRESENT: normal dorsalis pedis pul Vascular exam: PRESENT: normal capillary refill GI/Abdominal exam: PRESENT: normal bowel sounds, soft. ABSENT: distended, guarding, mass, organolmegaly, rebound, tenderness Rectal exam: PRESENT: deferred Extremities exam: PRESENT: full ROM. ABSENT: calf tenderness, clubbing, pedal edema Neurological exam: PRESENT: alert, awake, oriented to person, oriented to place, oriented to time, oriented to situation, CN II-XII grossly intact. ABSENT: motor sensory deficit Psychiatric exam: PRESENT: appropriate affect, normal mood. ABSENT: homicidal ideation, suicidal ideation Skin exam: PRESENT: dry, intact, warm. ABSENT: cyanosis, rash Results Laboratory Results: 04/11/20 14:02 04/11/20 14:02 Impressions: Abdomen/Pelvis CT 04/11/20 17:15 IMPRESSION: 1. Progression of hepatic metastases. Periportal adenopathy. Nodular contour of the liver, may be secondary to metastatic disease versus cirrhosis. 2. Large filling defect extending from the liver into the suprahepatic IVC, concerning for tumor thrombus. 3. Mild biliary ductal dilation. Redemonstration of left approach percutaneous internal external biliary drainage catheter. Pneumobilia at the gallbladder and common bile duct. 4. Interval development of moderate amount of ascites. 5. Diffuse wall thickening at the ascending colon, suggestive of colitis. 6. Anasarca. 7. Small bilateral pleural effusions. Ground-glass opacities within the adjacent bilateral lower lobes, may be secondary to atelectasis or pneumonia. Chest X-Ray 04/11/20 19:07 IMPRESSION: No acute radiographic finding in the chest on single view. Please note that the small bilateral pleural effusions and bibasilar ground-glass opacities described on earlier CT abdomen and pelvis are not resolved by single portable view. Follow-up with PA and lateral views as clinically warranted. Assessment & Plan - Diagnosis (1) Colon cancer metastasized to liver Is this a current diagnosis for this admission?: Yes Plan: Hospice being arranged, will follow - Time Time Spent with patient: 15-24 minutes
[2020-04-13] MEDS ORDERED: INFLUENZA QUAD (6MOS+) 2020-21 VAC 0.5 ML SYR IM ONE (08:00)
[2020-04-13] MEDS: FAMOTIDINE 20 MG TABLET PO SCH (09:44)
[2020-04-13 12:09] VITALS: BP 95/60
--- NOTE | 2020-04-13 16:51 | PDOC DISCHARGE SUMMARY ---
Impression - Admit/DC Date/PCP Admission Date/Primary Care Provider: 04/11/20 20:14 CARISSA PFEIFFER MD Discharge Date: 04/13/20 - Assessment Summary: Plan is for hospice care. Continue with pain control. Patient has stage IV metastatic colon cancer. He has received adequate IV hydration at this point and I will go ahead and discontinue IV fluids. exercise planner working on arranging patient's hospice. Patient prefers to go home on hospice. - Additional Information Resuscitation Status: Do Not Resuscitate Discharge Diet: As Tolerated Discharge Activity: Bedrest Referrals: [facility] [Outside] (HOME HOSPICE) Prescriptions: Morphine Sulfate 10 mg PO Q4HP PRN #20 ml PRN Reason: Home Medications: Morphine Sulfate 10 mg PO Q4HP PRN #20 ml 04/13/20 History of Present Illiness History of Present Illness: DAMASO HICKS is a 60 year old male with a history of colonic cancer s/p resection in 2018 and recurrence with metastasis to liver s/p biliary stent placement and for which he was on chemotherapy the last cycle being 2 weeks back now presents to ER after he had a fall this morning while he was trying to get to the bathroom. He states that for the past 2 to 3 days he had decreased appetite and has not been able to eat. He also felt very weak and fatigued. This morning while he was trying to get to the bathroom he felt lightheaded and fell to the floor but denies loss of consciousness or head injury. He states that he had 3 episodes of watery diarrhea for the past 2 days but denies nausea or vomiting. He reports that he does not have the energy to get up and he called EMS and was brought to the ED. Since arrival to the ER he has received 2 L of IV fluid and reports interval improvement in his dizziness. At the ED the initial plan was to transfer him to a higher level of care but after reviewing his chart and discussion with his oncologist, at this point it appears that the disease is far advanced and the recommendation was hospice/palliative care. This was discussed with the patient and patient understands the prognosis and agrees to be enrolled for hospice care with the a plan for oncology and palliative care team to see him in the morning. Hospital Course Hospital Course: This unfortunate man was essentially admitted so that hospice services could be arranged for him. We kept him as comfortable as we could until this could occur. He and his family elected to go with home hospice. An agency was selected, case management facilitated the arrangements, and the patient was transported home this evening on hospice. Physical Exam Vital Signs: Temp Pulse Resp BP Pulse Ox 97.4 F 92 17 95/60 L 92 04/13/20 12:00 04/13/20 12:00 04/13/20 12:00 04/13/20 12:00 04/13/20 12:00 Intake & Output 04/12/20 04/13/20 04/14/20 06:59 06:59 06:59 Intake Total 2740 2958 240 Output Total 1305 150 Balance 2740 1653 90 Weight 74.3 kg 74.3 kg General appearance: PRESENT: no acute distress, cooperative Neck exam: ABSENT: JVD Respiratory exam: PRESENT: unlabored Cardiovascular exam: PRESENT: +S1, +S2 GI/Abdominal exam: PRESENT: distended, soft Neurological exam: PRESENT: alert, awake, oriented to person, oriented to place, oriented to time, oriented to situation Psychiatric exam: PRESENT: normal mood. ABSENT: agitated, anxious Results Laboratory Results: WBC 9.9 10^3/uL (4.0-10.5) 04/11/20 14:02 RBC 2.99 10^6/uL (4.35-5.55) L 04/11/20 14:02 Hgb 10.0 g/dL (13.5-17.0) L 04/11/20 14:02 Hct 31.4 % (37.9-51.0) L 04/11/20 14:02 MCV 105 fl (80-97) H 04/11/20 14:02 MCH 33.3 pg (27.0-33.4) 04/11/20 14:02 MCHC 31.7 g/dL (32.0-36.0) L 04/11/20 14:02 RDW 20.4 % (11.5-14.0) H 04/11/20 14:02 Plt Count 106 10^3/uL (150-450) L 04/11/20 14:02 Lymph % (Auto) Not Reportable 04/11/20 14:02 [place] % (Auto) Not Reportable 04/11/20 14:02 Eos % (Auto) Not Reportable 04/11/20 14:02 Baso % (Auto) Not Reportable 04/11/20 14:02 Absolute Neuts (auto) Not Reportable 04/11/20 14:02 Absolute Lymphs (auto) Not Reportable 04/11/20 14:02 Absolute Monos (auto) Not Reportable 04/11/20 14:02 Absolute Eos (auto) Not Reportable 04/11/20 14:02 Absolute Basos (auto) Not Reportable 04/11/20 14:02 Total Counted 100 04/11/20 14:02 Seg Neutrophils % Not Reportable 04/11/20 14:02 Seg Neuts % (Manual) 77 % (42-78) 04/11/20 14:02 Band Neutrophils % 1 % (3-5) L 04/11/20 14:02 Lymphocytes % (Manual) 15 % (13-45) 04/11/20 14:02 Monocytes % (Manual) 6 % (3-13) 04/11/20 14:02 Eosinophils % (Manual) 1 % (0-6) 04/11/20 14:02 Basophils % (Manual) 0 % (0-2) 04/11/20 14:02 Abs Neuts (Manual) 7.7 10^3/uL (1.7-8.2) 04/11/20 14:02 Abs Lymphs (Manual) 1.5 10^3/uL (0.5-4.7) 04/11/20 14:02 Abs Monocytes (Manual) 0.6 10^3/uL (0.1-1.4) 04/11/20 14:02 Absolute Eos (Manual) 0.1 10^3/uL (0.0-0.6) 04/11/20 14:02 Abs Basophils (Manual) 0.0 10^3/uL (0.0-0.2) 04/11/20 14:02 Platelet Comment DECREASED 04/11/20 14:02 Anisocytosis 2+ 04/11/20 14:02 Macrocytosis 2+ 04/11/20 14:02 Sodium 133.1 mmol/L (137-145) L 04/11/20 14:02 Potassium 4.3 mmol/L (3.6-5.0) 04/11/20 14:02 Chloride 100 mmol/L (98-107) 04/11/20 14:02 Carbon Dioxide 18 mmol/L (22-30) L 04/11/20 14:02 Anion Gap 15 (5-19) 04/11/20 14:02 BUN 10 mg/dL (7-20) 04/11/20 14:02 Creatinine 0.66 mg/dL (0.52-1.25) 04/11/20 14:02 Est GFR ( Amer) > 60 (>60) 04/11/20 14:02 Est GFR (MDRD) Non-Af > 60 (>60) 04/11/20 14:02 Glucose 92 mg/dL (75-110) 04/11/20 14:02 Lactic Acid 1.2 mmol/L (0.7-2.1) 04/11/20 23:59 Calcium 8.2 mg/dL (8.4-10.2) L 04/11/20 14:02 Total Bilirubin 6.4 mg/dL (0.2-1.3) H 04/11/20 14:02 Direct Bilirubin 4.9 mg/dL (0.0-0.4) H 04/11/20 14:02 Neonat Total Bilirubin Not Reportable 04/11/20 14:02 Neonat Direct Bilirubin Not Reportable 04/11/20 14:02 Neonat Indirect Bili Not Reportable 04/11/20 14:02 AST 81 U/L (17-59) H 04/11/20 14:02 ALT 25 U/L (<50) 04/11/20 14:02 Alkaline Phosphatase 441 U/L (38-126) H 04/11/20 14:02 Total Protein 6.6 g/dL (6.3-8.2) 04/11/20 14:02 Albumin 2.6 g/dL (3.5-5.0) L 04/11/20 14:02 Urine Color AVERY 04/11/20 16:20 Urine Appearance SLIGHTLY-CLOUDY 04/11/20 16:20 Urine pH 5.0 (5.0-9.0) 04/11/20 16:20 Ur Specific [place] 1.019 04/11/20 16:20 Urine Protein 30 mg/dL (NEGATIVE) H 04/11/20 16:20 Urine Glucose (UA) NEGATIVE mg/dL (NEGATIVE) 04/11/20 16:20 Urine Ketones TRACE mg/dL (NEGATIVE) H 04/11/20 16:20 Urine Blood NEGATIVE (NEGATIVE) 04/11/20 16:20 Urine Nitrite (Reflex) NEGATIVE (NEGATIVE) 04/11/20 16:20 Urine Bilirubin MODERATE (NEGATIVE) H 04/11/20 16:20 Urine Urobilinogen 4.0 mg/dL (<2.0) H 04/11/20 16:20 Leukocyte Esterase Rfl NEGATIVE (NEGATIVE) 04/11/20 16:20 Urine RBC (Auto) 1 /HPF 04/11/20 16:20 Urine WBC (Reflex) 2 /HPF 04/11/20 16:20 Squamous Epi Cells Auto <1 /HPF 04/11/20 16:20 Urine Mucus (Auto) MOD /LPF 04/11/20 16:20 Urine Ascorbic Acid NEGATIVE (NEGATIVE) 04/11/20 16:20 Impressions: Abdomen/Pelvis CT 04/11/20 17:15 IMPRESSION: 1. Progression of hepatic metastases. Periportal adenopathy. Nodular contour of the liver, may be secondary to metastatic disease versus cirrhosis. 2. Large filling defect extending from the liver into the suprahepatic IVC, concerning for tumor thrombus. 3. Mild biliary ductal dilation. Redemonstration of left approach percutaneous internal external biliary drainage catheter. Pneumobilia at the gallbladder and common bile duct. 4. Interval development of moderate amount of ascites. 5. Diffuse wall thickening at the ascending colon, suggestive of colitis. 6. Anasarca. 7. Small bilateral pleural effusions. Ground-glass opacities within the adjacent bilateral lower lobes, may be secondary to atelectasis or pneumonia. Chest X-Ray 04/11/20 19:07 IMPRESSION: No acute radiographic finding in the chest on single view. Please note that the small bilateral pleural effusions and bibasilar ground-glass opacities described on earlier CT abdomen and pelvis are not resolved by single portable view. Follow-up with PA and lateral views as clinically warranted. Plan Time Spent: Greater than 30 Minutes Stroke Is this a Stroke Patient?: No Acute Heart Failure Is this a Heart Failure Patient?: No
== END 2020-04-13 19:37 | disposition hospice, home (50) ==
LOC: ER 14:29 → EH 20:14 → INTOOBSV 20:14 → 4N 22:29
PROVIDERS: ADMIT Student in an Organized Health Care Education/Training Program; ATTEND Family Medicine
DX: C18.9 Malignant neoplasm of colon, unspecified (principal); C78.7 Secondary malignant neoplasm of liver and intrahepatic bile duct; R60.1 Generalized edema; D64.9 Anemia, unspecified; R79.89 Other specified abnormal findings of blood chemistry; E44.0 Moderate protein-calorie malnutrition; I10 Essential (primary) hypertension; K83.8 Other specified diseases of biliary tract; R97.0 Elevated carcinoembryonic antigen [CEA]; R53.1 Weakness; E80.6 Other disorders of bilirubin metabolism; R29.898 Other symptoms and signs involving the musculoskeletal system; W19.XXXA Unspecified fall, initial encounter; Z66 Do not resuscitate; E86.0 Dehydration; I95.9 Hypotension, unspecified; R00.0 Tachycardia, unspecified; R05 Cough; R06.09 Other forms of dyspnea; J90 Pleural effusion, not elsewhere classified; Z23 Encounter for immunization; Z96.89 Presence of other specified functional implants; Z87.891 Personal history of nicotine dependence; Z90.49 Acquired absence of other specified parts of digestive tract
CPT/HCPCS: 93005; 99285; 96361; 96374; 96375; 36415; 83605; 85025; 80053; 81001; 71045; 74177; 90686; 93010; G0378 ×3; G0008; A9270 ×3; J1940; J1170 ×3; J2405; J7030; J7120 ×2; 90471